=== PATIENT | male | born 1935 | race Two or more races ===

== ENCOUNTER 2020-02-24 14:24 | Inpatient (IN) | payer MEDICARE, MEDICAID ==
[~2020-02-24] VITALS: Ht 177.8 cm; Wt 74.5 kg
[2020-02-24] MEDS ORDERED: ASPI-889 PO (15:09)
[2020-02-24] MEDS ORDERED: SPIR25TA5 PO (15:09)
[2020-02-24] MEDS ORDERED: ATOR40TA59 PO (15:09)
[2020-02-24] MEDS ORDERED: MEMA10TA PO (15:09)
[2020-02-24] MEDS ORDERED: METO50TA6 PO (15:09)
[2020-02-24] MEDS ORDERED: GLIP5TAB10 PO (15:09)
[2020-02-24] MEDS ORDERED: LOSA100T14 PO (15:09)
[2020-02-24] MEDS ORDERED: ISOS30TA4 PO (15:09)
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
[2020-02-24] MEDS ORDERED: ACETAMINOPHEN 325 MG TABLET PO PRN (16:30)
[2020-02-24] MEDS ORDERED: MAG HYDROX/AL HYDROX/SIMETH 30 ML ORAL.SUSP PO PRN (16:30)
[2020-02-24 17:03] VITALS: BP 159/84
[2020-02-24] MEDS: MEMANTINE 10 MG TABLET. PO SCH (20:09)
[2020-02-24] MEDS: ATORVASTATIN CALCIUM 20 MG TABLET PO SCH (20:09)
[2020-02-24] MEDS: METOPROLOL TART IMMED RELEASE 50 MG TABLET PO SCH (20:09)
--- NOTE | 2020-02-24 22:14 | PDOC ---
Exam Note: Jamie Note: Please also refer to the separate dictated note~for this date of service dictated separately.~Patient seen individually. Discussed the patient with Nursing staff reviewed the chart.~Reviewed interim history and current functioning. Reviewed vital signs,~Labs/ Radiology~and current medications noted below. Continue current treatment with the changes noted in the dictated addendum note Assessment: Vital Signs/I&O: Vital Signs Date Time Temp Pulse Resp B/P (MAP) Pulse Ox O2 Delivery O2 Flow Rate FiO2 02/24/20 20:14 97.9 98 02/24/20 20:09 79 159/84 02/24/20 17:03 18 Room Air Current Medications: Meds: Current Medications Medications (Trade) Dose Ordered Sig/Neto Route PRN Reason Start Time Stop Time Status Last Admin Dose Admin Memantine (Namenda) 10 mg BID PO 02/24/20 21:00 02/24/20 20:09 Metoprolol Tartrate (Lopressor) 50 mg BID PO 02/24/20 21:00 02/24/20 20:09 Atorvastatin Calcium (Lipitor) 40 mg QHS PO 02/24/20 21:00 02/24/20 20:09 I have reviewed the current psychotropics carefully including drug interactions. Risk benefit ratio favors no change other than as noted in my dictated progress note. CLEMENTE BUTLER MD Feb 24, 2020 22:14
[2020-02-25] MEDS: traZODone 50 MG TABLET. PO PRN ×2 (00:57→20:05)
--- NOTE | 2020-02-25 03:44 | NUR ---
Patient is in the [facility] on assumption of care. He is disorganized, confused. Keeps repeating "When will they be here with the car to take me home?" This nurse explained to the patient that he is in the hospital multiple times, but patient does not retain that information. He is rambling on, talking to himself throughout the evening. He was compliant with assessments and medications given crushed in chocolate pudding. Bed made up in the quiet room, and this nurse and ARTIST RELATIONSHIP MANAGER repeatedly attempted to get the patient to change into a hospital gown and go to sleep, with no success. Trazadone 50mg given at 0100, with very little effect. Patient fell asleep in the chair for approximately 30 minutes. He is awake at present time, pacing in the hallway. No agitation. Does not appear to be experiencing any pain or discomfort. Will continue to monitor.
[2020-02-25 05:52] VITALS: BP 158/89
[2020-02-25] MEDS: METOPROLOL TART IMMED RELEASE 50 MG TABLET PO SCH ×2 (08:06→20:04)
[2020-02-25] MEDS: LOSARTAN 50 MG TABLET. PO SCH (08:06)
[2020-02-25] MEDS: MEMANTINE 10 MG TABLET. PO SCH ×2 (08:06→20:04)
[2020-02-25] MEDS: glipiZIDE 5 MG TABLET PO SCH (08:06)
[2020-02-25] MEDS: ISOSORBIDE MONONITRATE ER 30 MG TAB.ER.24H PO SCH (08:07)
[2020-02-25] MEDS: ASPIRIN ENTERIC COATED 81 MG TABLET.DR. PO SCH (08:07)
[2020-02-25] MEDS: SPIRONOLACTONE 25 MG TABLET PO SCH (08:08)
[2020-02-25 08:13] LABS: BASO % 0 % (0-3); EOS # 0.1 x10^3/uL (0.0-0.7); EOS % 1 % (0-3); HEMATOCRIT 48.5 % (39.0-53.0); HEMOGLOBIN 16.2 g/dL (13.0-17.5); LYMPH # 2.7 x10^3/uL (1.0-4.8); LYMPH % 45 % (24-48); MEAN CORPUSCULAR HEMOGLOBIN 32 pg (25-35); MEAN CORPUSCULAR HGB CONC 33 g/dL (31-37); MEAN CORPUSCULAR VOLUME 97 fL (79-100); MONO # 0.4 x10^3/uL (0.0-1.1); MONO % 7 % (0-9); NEUT # 2.8 x10^3uL (1.8-7.7); NEUT % 47 % (31-73); PLATELET COUNT 168 x10^3/uL (140-400); RED CELL DISTRIBUTION WIDTH 15.3 % (11.5-14.5)
[2020-02-25 08:28] LABS: ALBUMIN 4.2 g/dL (3.4-5.0); ALBUMIN/GLOBULIN RATIO 1.1 (1.0-1.7); CALCIUM 9.7 mg/dL (8.5-10.1); CREATININE 1.3 mg/dL (0.7-1.3); GFR 52.6; MAGNESIUM 2.1 mg/dL (1.8-2.4); POTASSIUM 4.2 mmol/L (3.5-5.1); TOTAL BILIRUBIN 1.4 mg/dL (0.2-1.0)
[2020-02-25 11:03] LABS: THYROID STIM HORMONE (TSH) 1.618 uIU/mL (0.358-3.740)
--- NOTE | 2020-02-25 11:07 | NUR ---
ACTIVITY THERAPY ASSESSMENT completed based on notes, observation, and interview. Pt was in secured hallway [facility]. Pt requested for some water which the AT got and then began to ask questions. Pt was disorganized, confused, and unable to engage. Pt was unable to recall leisure activities he enjoyed. AT then asked pt about his family. Pt spoke in circles until asked direct questions. AT asked what his name was to which he replied Sandra. AT asked if he had children to which he replied he had five. AT tried to use this that questions which pt responded in a disorganized manner. When asked what pt likes to do with his family he replied "be with them." Pt then began to talk [place]. Pt then said that they gave us a couple tires. Pt then began to speak about his children laughing. Then pt said the car had a problem. AT redirected conversation to ask how long he had been to which he replied with speaking about the car. AT asked pt if he came from home which he replied yes to then said he came from somewhere very loud. AT asked pt if his eyes and ears were good and he said yes. Pt then said "it's a good car" while pointing around the table in front of him. AT asked pt where this story took place and he replied with [place]. AT asked if that is where he came from and he said 'yes, all the way [place].' AT then asked when he came to [place] and all AT could make out was '17,000.' Initial goal is aimed to increase time management and socialization skills. Pt will participate in one individual Activity Therapy Session before discharge. Addendum: 02/25/20 at 1112 by LISA WHITE ACT Assessment time: 1015 Addendum: 03/06/20 at 1543 by MARILY WOLFE ACT Goal changed 03/05: Pt. will participate in at least three individual or group Activity Therapy sessions per week
[2020-02-25 15:40] VITALS: BP 138/65
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
[2020-02-25 18:07] LABS: THYROXINE 7.1 ug/dL (4.5-12.0)
--- NOTE | 2020-02-25 19:02 | PN ---
DATE: 02/25/2020 PSYCHIATRIC PROGRESS NOTE This note covers elements not covered in my initial note of 02/25/2020. SUBJECTIVE: The patient was seen on telehealth rounds with LISA Vargas in the evening. Discussed with nursing staff. The patient slept just half hour previous night. He remains quite agitated, more so in the morning, refused his UA, has appeared tired later in the evening. Poor appetite, confused, slept just half hour. REVIEW OF SYSTEMS: No CV, , pulmonary, eye, ENT system symptoms on review. Reliability poor. MENTAL STATUS EXAM: Oriented to himself. Insight, judgment, recent and remote memory, attention, concentration, fund of knowledge poor, consistent with his diagnosis. IMPRESSION: Major neurocognitive disorder, Alzheimer, vascular with delusion; depression, behavioral disturbance, anxiety disorder, unspecified; impulse control disorder, unspecified. PLAN: Continue current psychotropic. Start Remeron 7.5 mg at bedtime, Zoloft 25 mg a day for his mood and anxiety symptoms and trazodone p.r.n. Rest unchanged for now. Maintain Namenda 10 b.i.d. MAN Steph BUTLER MD DR: TAMIE/natacha JOB#: [id number] / [id number]
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
[2020-02-25 19:23] LABS: BILIRUBIN,URINE NEG (NEG); CLARITY,URINE CLEAR; COLOR,URINE AMBER; GLUCOSE,URINE NEG (NEG)
[2020-02-25 19:24] LABS: BACTERIA,URINE MOD /HPF (0-FEW); GRANULAR CASTS,URINE OCC /HPF; HYALINE CASTS, URINE MANY /HPF; NITRITE,URINE NEG (NEG); SQUAMOUS EPITHELIAL CELL,UR FEW /LPF
[2020-02-25] MEDS: ATORVASTATIN CALCIUM 20 MG TABLET PO SCH (20:04)
[2020-02-25] MEDS: MIRTAZAPINE 7.5 MG TABLET. PO SCH (20:05)
--- NOTE | 2020-02-25 21:58 | NUR ---
Pt located in the [facility] this evening d/t pt not keeping his mask on. Pt A/O self, word salad. He has been pacing the hallway, undressing and hallucinating (auditory and visual.) Pt has called out for Gual[facility]to numerous times. Compliant with HS medications crushed in one bite of pudding. Pt fell asleep in chair in hallway and was very resistive with staff taking him to bed. Agitated and attempted to swing when staff checked his brief.
--- NOTE | 2020-02-25 22:27 | PDOC ---
Exam Note: Jamie Note: Please also refer to the separate dictated note~for this date of service dictated separately.~Patient seen individually. Discussed the patient with Nursing staff reviewed the chart.~Reviewed interim history and current functioning. Reviewed vital signs,~Labs/ Radiology~and current medications noted below. Continue current treatment with the changes noted in the dictated addendum note Assessment: Vital Signs/I&O: Vital Signs Date Time Temp Pulse Resp B/P (MAP) Pulse Ox O2 Delivery O2 Flow Rate FiO2 02/25/20 20:04 69 138/65 02/25/20 19:59 98.8 92 02/25/20 15:40 16 Room Air I & O 02/24/20 02/24/20 02/25/20 15:00 23:00 07:00 Intake Total 240 ml Balance 240 ml Labs: Laboratory Tests Test 02/25/20 07:26 02/25/20 07:55 02/25/20 18:30 02/25/20 19:50 Glucose (Fingerstick) 107 mg/dL (70-99) H 143 mg/dL (70-99) H White Blood Count 6.0 x10^3/uL (4.0-11.0) Red Blood Count 5.00 x10^6/uL (4.30-5.70) Hemoglobin 16.2 g/dL (13.0-17.5) Hematocrit 48.5 % (39.0-53.0) Mean Corpuscular Volume 97 fL (79-100) Mean Corpuscular Hemoglobin 32 pg (25-35) Mean Corpuscular Hemoglobin Concent 33 g/dL (31-37) Red Cell Distribution Width 15.3 % (11.5-14.5) H Platelet Count 168 x10^3/uL (140-400) Neutrophils (%) (Auto) 47 % (31-73) Lymphocytes (%) (Auto) 45 % (24-48) Monocytes (%) (Auto) 7 % (0-9) Eosinophils (%) (Auto) 1 % (0-3) Basophils (%) (Auto) 0 % (0-3) Neutrophils # (Auto) 2.8 x10^3uL (1.8-7.7) Lymphocytes # (Auto) 2.7 x10^3/uL (1.0-4.8) Monocytes # (Auto) 0.4 x10^3/uL (0.0-1.1) Eosinophils # (Auto) 0.1 x10^3/uL (0.0-0.7) Basophils # (Auto) 0.0 x10^3/uL (0.0-0.2) Sodium Level 139 mmol/L (136-145) Potassium Level 4.2 mmol/L (3.5-5.1) Chloride Level 102 mmol/L (98-107) Carbon Dioxide Level 27 mmol/L (21-32) Anion Gap 10 (6-14) Blood Urea Nitrogen 21 mg/dL (8-26) Creatinine 1.3 mg/dL (0.7-1.3) Estimated GFR (Cockcroft-Gault) 52.6 BUN/Creatinine Ratio 16 (6-20) Glucose Level 128 mg/dL (70-99) H Calcium Level 9.7 mg/dL (8.5-10.1) Magnesium Level 2.1 mg/dL (1.8-2.4) Iron Level 122 ug/dL (65-175) Total Iron Binding Capacity 355 ug/dL (250-450) Iron Saturation 34 % (15-34) Total Bilirubin 1.4 mg/dL (0.2-1.0) H Aspartate Amino Transferase (AST) 41 U/L (15-37) H Alanine Aminotransferase (ALT) 38 U/L (16-63) Alkaline Phosphatase 93 U/L (46-116) Total Protein 8.0 g/dL (6.4-8.2) Albumin 4.2 g/dL (3.4-5.0) Albumin/Globulin Ratio 1.1 (1.0-1.7) Triglycerides Level 95 mg/dL (0-150) Cholesterol Level 178 mg/dL (0-200) LDL Cholesterol, Calculated 85 mg/dL (0-100) VLDL Cholesterol, Calculated 19 mg/dL (0-40) Non-HDL Cholesterol Calculated 104 mg/dL (0-129) HDL Cholesterol 74 mg/dL (40-60) H Cholesterol/HDL Ratio 2.0 Thyroid Stimulating Hormone (TSH) 1.618 uIU/mL (0.358-3.740) Thyroxine (T4) 7.1 ug/dL (4.5-12.0) Total Triiodothyronine (TT3) 92 ng/dL (71-180) Urine Collection Type Unknown Urine Color Majo Urine Clarity Clear Urine pH 6.5 Urine Specific [place] 1.020 Urine Protein 100 mg/dl (NEG-TRACE) Urine Glucose (UA) Neg mg/dL (NEG) Urine Ketones (Stick) Neg mg/dL (NEG) Urine Blood Neg (NEG) Urine Nitrite Neg (NEG) Urine Bilirubin Neg (NEG) Urine Urobilinogen Dipstick 2.0 mg/dL (0.2 mg/dL) Urine Leukocyte Esterase Neg (NEG) Urine RBC 1-2 /HPF (0-2) Urine WBC 1-4 /HPF (0-4) Urine Squamous Epithelial Cells Few /LPF Urine Bacteria Mod /HPF (0-FEW) Urine Hyaline Casts Many /HPF Urine Granular Casts Occ /HPF Urine Mucus Slight /LPF Current Medications: Meds: Current Medications Medications (Trade) Dose Ordered Sig/Neto Route PRN Reason Start Time Stop Time Status Last Admin Dose Admin Aspirin (Aspirin Enteric Coated) 81 mg DAILY PO 02/25/20 09:00 02/25/20 08:07 Glipizide (Glucotrol) 2.5 mg DAILY PO 02/25/20 09:00 02/25/20 08:06 Isosorbide Mononitrate (Imdur) 30 mg DAILY PO 02/25/20 09:00 02/25/20 08:07 Spironolactone (Aldactone) 12.5 mg DAILY PO 02/25/20 09:00 02/25/20 08:08 Losartan Potassium (Cozaar) 100 mg DAILY PO 02/25/20 09:00 02/25/20 08:06 Mirtazapine (Remeron) 7.5 mg QHS PO 02/25/20 21:00 02/25/20 20:05 I have reviewed the current psychotropics carefully including drug interactions. Risk benefit ratio favors no change other than as noted in my dictated progress note. Diagnosis: Problems: (1) Major neurocognitive disorder (2) Dementia in Alzheimer's disease with delusions (3) Dementia in Alzheimer's disease with depression (4) Dementia of the Alzheimer's type with early onset with behavioral disturbance (5) Dementia, vascular, with delusions (6) Dementia, vascular, with depression (7) Anxiety disorder, unspecified (8) Impulse control disorder, unspecified CLEMENTE BUTLER MD Feb 25, 2020:27
[2020-02-26 05:30] VITALS: BP 150/70
[2020-02-26 05:38] LABS: HEMOGLOBIN A1C 6.6 % (4.8-5.6)
[2020-02-26] MEDS: SPIRONOLACTONE 25 MG TABLET PO SCH (07:43)
[2020-02-26] MEDS: ASPIRIN ENTERIC COATED 81 MG TABLET.DR. PO SCH (07:45)
[2020-02-26] MEDS: ISOSORBIDE MONONITRATE ER 30 MG TAB.ER.24H PO SCH (07:45)
[2020-02-26] MEDS: LOSARTAN 50 MG TABLET. PO SCH (07:45)
[2020-02-26] MEDS: glipiZIDE 5 MG TABLET PO SCH (07:45)
[2020-02-26] MEDS: METOPROLOL TART IMMED RELEASE 50 MG TABLET PO SCH ×2 (07:46→21:13)
[2020-02-26] MEDS: MEMANTINE 10 MG TABLET. PO SCH ×2 (07:46→21:13)
[2020-02-26] MEDS: SERTRALINE 25 MG TABLET. PO SCH (07:47)
--- NOTE | 2020-02-26 10:47 | NUR ---
Pt restless and wandering in room. Zydis given with am meds. Pt down for CT. Tolerated well.
--- NOTE | 2020-02-26 10:49 | RAD ---
PQRS Compliance Statement: One or more of the following individualized dose reduction techniques were utilized for this examination: 1. Automated exposure control 2. Adjustment of the mA and/or kV according to patient size 3. Use of iterative reconstruction technique CT HEAD WITHOUT CONTRAST History: Reason: MS change / Comparison: None. Technique: Axial images are obtained of the head from the skull base through the vertex without IV contrast. Findings: There is a 9 mm linear metallic foreign body of the medial superior left orbit. Medial deviation of the right lamina papyracea may be congenital or due to old fracture. No mass-effect, midline shift, extra-axial fluid collection, hemorrhage, or obvious acute infarction is identified. Basilar cisterns are patent. The ventricles and sulci are prominent, consistent with age-related cerebral atrophy. There is supratentorial white matter hypoattenuation. This is a nonspecific finding but is commonly due to chronic small vessel ischemic disease. Bone windows demonstrate no acute calvarial abnormality. The visualized paranasal sinuses are clear. Mastoid air cells are well aerated. IMPRESSION: 1. No acute intracranial abnormality. 2. Generalized cerebral atrophy and supratentorial white matter changes probably due to chronic small vessel ischemic disease. 3. Metallic foreign body of the left orbit. Electronically signed by: Denis Jorge MD (02/26/2020 10:46 AM) [id number]
[2020-02-26 15:51] VITALS: BP 111/62
--- NOTE | 2020-02-26 16:23 | NUR ---
Pt has been mostly redirectable in room. Disrobed and came into hallway x1. Has been exit seeking at times. Has been compliant with meds and redirectable.
[2020-02-26] MEDS: MIRTAZAPINE 7.5 MG TABLET. PO SCH (21:12)
[2020-02-26] MEDS: ATORVASTATIN CALCIUM 20 MG TABLET PO SCH (21:13)
[2020-02-26] MEDS: traZODone 50 MG TABLET. PO PRN (21:13)
--- NOTE | 2020-02-26 21:57 | PDOC ---
Exam Note: Jamie Note: Please also refer to the separate dictated note~for this date of service dictated separately.~Patient seen individually. Discussed the patient with Nursing staff reviewed the chart.~Reviewed interim history and current functioning. Reviewed vital signs,~Labs/ Radiology~and current medications noted below. Continue current treatment with the changes noted in the dictated addendum note Assessment: Vital Signs/I&O: Vital Signs Date Time Temp Pulse Resp B/P (MAP) Pulse Ox O2 Delivery O2 Flow Rate FiO2 02/26/20 21:13 72 111/62 02/26/20 15:51 97.5 18 96 Room Air I & O 02/25/20 02/25/20 02/26/20 15:00 23:00 07:00 Intake Total 540 ml 60 ml Balance 540 ml 60 ml Labs: Laboratory Tests Test 02/26/20 07:37 02/26/20 19:34 Glucose (Fingerstick) 97 mg/dL (70-99) 233 mg/dL (70-99) H Current Medications: Meds: Current Medications Medications (Trade) Dose Ordered Sig/Neto Route PRN Reason Start Time Stop Time Status Last Admin Dose Admin Sertraline HCl (Zoloft) 25 mg DAILY PO 02/26/20 09:00 02/29/20 08:00 02/26/20 07:47 I have reviewed the current psychotropics carefully including drug interactions. Risk benefit ratio favors no change other than as noted in my dictated progress note. Diagnosis: Problems: (1) Impulse control disorder, unspecified (2) Anxiety disorder, unspecified (3) Dementia, vascular, with depression (4) Dementia, vascular, with delusions (5) Dementia in Alzheimer's disease with depression (6) Dementia in Alzheimer's disease with delusions (7) Dementia of the Alzheimer's type with early onset with behavioral disturbance (8) Major neurocognitive disorder CLEMENTE BUTLER MD Feb 26, 2020 21:57
--- NOTE | 2020-02-26 22:54 | NUR ---
Nursing Note The patient was located in his room and throughout the hallways this shift. The patient was very restless and was resistive at times r/t wearing his mask when out of his room. The patient was given PRN Trazodone per PRN order with his HS medication. The patient was compliant with his medication and took them crushed in pudding. The patient was compliant with his assessment. The patient is currently awake in his room.
[2020-02-27 06:38] VITALS: BP 137/80
[2020-02-27] MEDS: ASPIRIN ENTERIC COATED 81 MG TABLET.DR. PO SCH (09:00)
[2020-02-27] MEDS: SPIRONOLACTONE 25 MG TABLET PO SCH (09:00)
[2020-02-27] MEDS: LOSARTAN 50 MG TABLET. PO SCH (09:02)
[2020-02-27] MEDS: glipiZIDE 5 MG TABLET PO SCH (09:02)
[2020-02-27] MEDS: ISOSORBIDE MONONITRATE ER 30 MG TAB.ER.24H PO SCH (09:02)
[2020-02-27] MEDS: SERTRALINE 25 MG TABLET. PO SCH (09:03)
[2020-02-27] MEDS: MEMANTINE 10 MG TABLET. PO SCH ×2 (09:03→21:06)
[2020-02-27] MEDS: METOPROLOL TART IMMED RELEASE 50 MG TABLET PO SCH ×2 (09:03→21:06)
--- NOTE | 2020-02-27 11:27 | NUR ---
Pt is disorganized, confused, but cooperative. No agitation or aggression. Pt does talk to himself and what appears to be someone in his room. He is compliant with his medication and assessment.
--- NOTE | 2020-02-27 14:12 | NUR ---
SW attempted to contact Valorie, who is noted as the primary DPOA, and was not able to leave a message. SW received a recording stating that the number you have reached has either been disconnected or in an area that cannot be reached". SW attempted the number a couple more times receiving the same message. DARYA will try again and attempt to contact his secondary DPOA, Mary.
[2020-02-27 15:44] VITALS: BP 122/66
--- NOTE | 2020-02-27 16:40 | NUR ---
1:1 observation d/c'd as pt is stable on his feet and able to follow commands and directions. Pt has been evaluated by PT.
--- NOTE | 2020-02-27 19:13 | PN ---
DATE: 02/26/2020 This late entry 02/26/2020 covers elements not covered in my initial note. SUBJECTIVE: I met with the patient the evening of 02/26/2020. This was telehealth rounds with LISA Vargas. The patient slept 6-3/4 hours previous night, received trazodone and Remeron to help him sleep. Per nursing report, he has been having some questionable auditory and visual hallucinations, confused, disrobing in the hallway. CT head completed some vascular changes and atrophy are noted. UA has reflex to culture. REVIEW OF SYSTEMS: No CV, , pulmonary, eye, ENT system symptoms on review. Reliability poor. MENTAL STATUS EXAM: Oriented to himself. Insight, judgment, recent and remote memory, attention, concentration, fund of knowledge poor, consistent with his diagnosis mentioned in my initial note. PLAN: No change from initial note. Increase Zoloft to 50 mg a day after he has been on 25 mg for 3 days. Continue trazodone p.r.n., Namenda 10 b.i.d., Remeron 7.5 mg at bedtime. Await UA, C and S, treat if indicated. CLEMENTE BUTLER MD DR: TAMIE/natacha JOB#: [id number] / [id number]
[2020-02-27] MEDS: ATORVASTATIN CALCIUM 20 MG TABLET PO SCH (21:06)
[2020-02-27] MEDS: MIRTAZAPINE 7.5 MG TABLET. PO SCH (21:06)
--- NOTE | 2020-02-27 22:09 | PDOC ---
Exam Note: Jamie Note: Please also refer to the separate dictated note~for this date of service dictated separately.~Patient seen individually. Discussed the patient with Nursing staff reviewed the chart.~Reviewed interim history and current functioning. Reviewed vital signs,~Labs/ Radiology~and current medications noted below. Continue current treatment with the changes noted in the dictated addendum note Assessment: Vital Signs/I&O: Vital Signs Date Time Temp Pulse Resp B/P (MAP) Pulse Ox O2 Delivery O2 Flow Rate FiO2 02/27/20 21:06 60 122/66 02/27/20 20:08 97.6 100 02/27/20 15:44 16 02/26/20 15:51 Room Air I & O 02/26/20 02/26/20 02/27/20 15:00 23:00 07:00 Intake Total 480 ml 360 ml Balance 480 ml 360 ml Labs: Laboratory Tests Test 02/27/20 07:53 Glucose (Fingerstick) 84 mg/dL (70-99) Current Medications: I have reviewed the current psychotropics carefully including drug interactions. Risk benefit ratio favors no change other than as noted in my dictated progress note. Diagnosis: Problems: (1) Impulse control disorder, unspecified (2) Anxiety disorder, unspecified (3) Dementia, vascular, with depression (4) Dementia, vascular, with delusions (5) Dementia in Alzheimer's disease with depression (6) Dementia in Alzheimer's disease with delusions (7) Dementia of the Alzheimer's type with early onset with behavioral disturbance (8) Major neurocognitive disorder CLEMENTE BUTLER MD Feb 27, 2020 22:09
--- NOTE | 2020-02-28 01:43 | NUR ---
Nursing Note The patient was located near the [facility] station sitting with another patient when approached for his medication and assessment. The patient was calm and compliant albeit confused and unable to track during conversations. The patient took his medication crushed in chocolate pudding. The patient is currently awake laying in bed.
[2020-02-28 06:21] VITALS: BP 143/74
[2020-02-28] MEDS: ASPIRIN ENTERIC COATED 81 MG TABLET.DR. PO SCH (08:51)
[2020-02-28] MEDS: ISOSORBIDE MONONITRATE ER 30 MG TAB.ER.24H PO SCH (08:51)
[2020-02-28] MEDS: METOPROLOL TART IMMED RELEASE 50 MG TABLET PO SCH ×2 (08:51→21:20)
[2020-02-28] MEDS: SERTRALINE 25 MG TABLET. PO SCH (08:51)
[2020-02-28] MEDS: LOSARTAN 50 MG TABLET. PO SCH (08:52)
[2020-02-28] MEDS: MEMANTINE 10 MG TABLET. PO SCH ×2 (08:52→21:20)
[2020-02-28] MEDS: SPIRONOLACTONE 25 MG TABLET PO SCH (08:52)
[2020-02-28] MEDS: glipiZIDE 5 MG TABLET PO SCH (08:52)
--- NOTE | 2020-02-28 11:14 | NUR ---
Nursing note: Pt in his room and appears to be talking to someone when approached for morning meds and assessment. Pt was pleasant, compliant with meds crushed in pudding, and cooperative with assessment. Pt was unable to answer orientation questions, rambling on about something completely off topic and speaking in word salad. He has come out of his room once this shift forgetting to wear his mask. When reminded that he needed to be wearing it, he rushed back into his room and was getting upset because he thought he lost it. This nurse showed him that it was still sitting on his bed, he quickly showed signs of relief and put the mask on. He is currently sitting in his room. Will continue to monitor.
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
[2020-02-28 15:13] VITALS: BP 138/73
[2020-02-28] MEDS: MIRTAZAPINE 7.5 MG TABLET. PO SCH (21:20)
[2020-02-28] MEDS: ATORVASTATIN CALCIUM 20 MG TABLET PO SCH (21:20)
--- NOTE | 2020-02-28 21:53 | PDOC ---
Exam Note: Jamie Note: Please also refer to the separate dictated note~for this date of service dictated separately.~Patient seen individually. Discussed the patient with Nursing staff reviewed the chart.~Reviewed interim history and current functioning. Reviewed vital signs,~Labs/ Radiology~and current medications noted below. Continue current treatment with the changes noted in the dictated addendum note Assessment: Vital Signs/I&O: Vital Signs Date Time Temp Pulse Resp B/P (MAP) Pulse Ox O2 Delivery O2 Flow Rate FiO2 02/28/20 21:20 83 138/73 02/28/20 15:13 97.7 16 100 02/26/20 15:51 Room Air I & O 02/27/20 02/27/20 02/28/20 15:00 23:00 07:00 Intake Total 600 ml 320 ml Balance 600 ml 320 ml Labs: Laboratory Tests Test 02/28/20 07:24 Glucose (Fingerstick) 91 mg/dL (70-99) Current Medications: I have reviewed the current psychotropics carefully including drug interactions. Risk benefit ratio favors no change other than as noted in my dictated progress note. Diagnosis: Problems: (1) Major neurocognitive disorder, due to vascular disease, with behavioral disturbance, mild (2) Impulse control disorder, unspecified (3) Anxiety disorder, unspecified (4) Dementia, vascular, with depression (5) Dementia, vascular, with delusions (6) Dementia in Alzheimer's disease with depression (7) Dementia in Alzheimer's disease with delusions (8) Dementia of the Alzheimer's type with early onset with behavioral disturbance CLEMENTE BUTLER MD Feb 28, 2020 21:53
--- NOTE | 2020-02-28 23:22 | NUR ---
Nursing Note The patient was located in his room and throughout the hallways near his room this shift. The patient intermittently entered the room next his and required staff to escort him out. The patient is severely disorganized during all interactions. The patient took his medication crushed in pudding. The patient is currently laying in bed awake.
[2020-02-29 06:28] VITALS: BP 136/68
[2020-02-29] MEDS: ISOSORBIDE MONONITRATE ER 30 MG TAB.ER.24H PO SCH (08:40)
[2020-02-29] MEDS: MEMANTINE 10 MG TABLET. PO SCH ×2 (08:40→20:07)
[2020-02-29] MEDS: SERTRALINE 50 MG TABLET. PO SCH (08:40)
[2020-02-29] MEDS: METOPROLOL TART IMMED RELEASE 50 MG TABLET PO SCH ×2 (08:41→21:00)
[2020-02-29] MEDS: SPIRONOLACTONE 25 MG TABLET PO SCH (08:42)
[2020-02-29] MEDS: LOSARTAN 50 MG TABLET. PO SCH (08:42)
[2020-02-29] MEDS: ASPIRIN ENTERIC COATED 81 MG TABLET.DR. PO SCH (08:42)
[2020-02-29] MEDS: glipiZIDE 5 MG TABLET PO SCH (08:42)
--- NOTE | 2020-02-29 12:55 | PN ---
DATE: 02/28/2020 PSYCHIATRIC PROGRESS NOTE This late entry 02/27 covers elements not covered in my initial note. SUBJECTIVE: I met with the patient evening of 02/27 on telehealth rounds. Discussed with LISA Izaguirre. The patient slept 5-1/4 hours previous night. He has had a good day, remains disorganized, removes his mask in the hallway, unable to remember to use his walker. REVIEW OF SYSTEMS: No CV, , pulmonary, eye system symptoms on review. Reliability poor. MENTAL STATUS EXAM: Oriented to himself. Insight, judgment, recent and remote memory, attention, concentration, fund of knowledge poor, consistent with his diagnosis. As I met with him on telehealth rounds, he was having dinner, but as I questioned him, he was unable to identify what food items he was eating. IMPRESSION: Major neurocognitive disorder, Alzheimer, vascular with delusion, depression, behavioral disturbance. Rest unchanged. PLAN: Continue psychotropics from initial note including Namenda, trazodone, Zyprexa p.r.n., Remeron, Zoloft, which is being gradually increased. CLEMENTE BUTLER MD DR: TAMIE/natacha JOB#: [id number] / [id number]
--- NOTE | 2020-02-29 13:34 | NUR ---
Nursing note: Pt in his room for morning meds and assessment. He was social, compliant with meds crushed in pudding, and cooperative with his assessment. Pt continues to be very disorganized. He has occasionally come out of his room to walk around the unit while remembering to wear his mask, just needs reminders to pull it up over his nose as it falls down when he speaks. Pt has a peer who he enjoys speaking with and frequently speaks with him from the doorway of his room. He is currently sitting in his room. Will continue to monitor.
[2020-02-29 15:19] VITALS: BP 86/57
[2020-02-29] MEDS: ATORVASTATIN CALCIUM 20 MG TABLET PO SCH (20:07)
[2020-02-29] MEDS: MIRTAZAPINE 7.5 MG TABLET. PO SCH (20:07)
[2020-02-29 20:25] VITALS: BP 146/69
--- NOTE | 2020-02-29 21:59 | PDOC ---
Exam Note: Jamie Note: Please also refer to the separate dictated note~for this date of service dictated separately.~Patient seen individually. Discussed the patient with Nursing staff reviewed the chart.~Reviewed interim history and current functioning. Reviewed vital signs,~Labs/ Radiology~and current medications noted below. Continue current treatment with the changes noted in the dictated addendum note Assessment: Vital Signs/I&O: Vital Signs Date Time Temp Pulse Resp B/P (MAP) Pulse Ox O2 Delivery O2 Flow Rate FiO2 02/29/20 21:02 98.1 97 02/29/20 20:25 65 146/69 (94) 02/29/20 15:19 16 02/29/20 06:28 Room Air I & O 02/28/20 02/28/20 02/29/20 15:00 23:00 07:00 Intake Total 720 ml 360 ml Balance 720 ml 360 ml Current Medications: Meds: Current Medications Medications (Trade) Dose Ordered Sig/Neto Route PRN Reason Start Time Stop Time Status Last Admin Dose Admin Sertraline HCl (Zoloft) 50 mg DAILY PO 02/29/20 09:00 02/29/20 08:40 I have reviewed the current psychotropics carefully including drug interactions. Risk benefit ratio favors no change other than as noted in my dictated progress note. Diagnosis: Problems: (1) Impulse control disorder, unspecified (2) Anxiety disorder, unspecified (3) Dementia, vascular, with depression (4) Dementia, vascular, with delusions (5) Dementia in Alzheimer's disease with depression (6) Dementia in Alzheimer's disease with delusions (7) Dementia of the Alzheimer's type with early onset with behavioral disturbance (8) Major neurocognitive disorder, due to vascular disease, with behavioral disturbance, mild CLEMENTE BUTLER MD Feb 29, 2020 21:59
--- NOTE | 2020-02-29 22:32 | PN ---
DATE: 02/27/2020 PSYCHIATRIC PROGRESS NOTE This late entry 02/27/2020 covers elements not covered in my initial note. SUBJECTIVE: I met with the patient evening of 02/27/2020 and staffed at a treatment team meeting earlier in the day on 02/27/2020 with Aye Martinez, laboratory coordinator, LISA Celaya. The patient slept 5 hours previous night. He remains confused. Nursing staff report he is having auditory hallucinations, talking to himself, sitting in his room. He has had no inappropriate urination in the hallway. REVIEW OF SYSTEMS: No CV, , pulmonary, eye, ENT system symptoms on review. Reliability poor. MENTAL STATUS EXAM: Oriented to himself. Insight, judgment, recent and remote memory, attention, concentration, fund of knowledge poor, consistent with his diagnosis mentioned in my initial note. PLAN: No change from initial note. MAN Steph BUTLER MD DR: TAMIE/natacha JOB#: [id number] / [id number]
--- NOTE | 2020-03-01 00:35 | NUR ---
Location of Patient during Assessment: Patient room Behaviors Mood and Affect this shift: Friendly outgoing demeanor, has made friends with a peer and social with staff. Medication Compliant: Meds taken whole with some prompting Assessment Compliant: Cooperative with assessment. Response After Interventions: Visited with staff, talked about air planes and repairing them as well as other rambling conversations. Only able to state name and partial , not sure of anything else.
[2020-03-01 05:39] VITALS: BP 135/73
[2020-03-01] MEDS: METOPROLOL TART IMMED RELEASE 50 MG TABLET PO SCH ×2 (09:41→20:30)
[2020-03-01] MEDS: ASPIRIN ENTERIC COATED 81 MG TABLET.DR. PO SCH (09:41)
[2020-03-01] MEDS: SPIRONOLACTONE 25 MG TABLET PO SCH (09:42)
[2020-03-01] MEDS: SERTRALINE 50 MG TABLET. PO SCH (09:42)
[2020-03-01] MEDS: glipiZIDE 5 MG TABLET PO SCH (09:42)
[2020-03-01] MEDS: ISOSORBIDE MONONITRATE ER 30 MG TAB.ER.24H PO SCH (09:42)
[2020-03-01] MEDS: LOSARTAN 50 MG TABLET. PO SCH (09:43)
[2020-03-01] MEDS: MEMANTINE 10 MG TABLET. PO SCH ×2 (09:43→20:30)
--- NOTE | 2020-03-01 11:54 | NUR ---
Nursing note: Pt in hallway socializing with peer and cooperative when asked to go to his room to be given his meds and to do assessment. He was compliant with meds crushed in pudding and cooperative with his assessment. Pt was unable to answer any orientation questions. He is currently in his room sleeping. Will continue to monitor.
[2020-03-01 15:33] VITALS: BP 122/70
[2020-03-01] MEDS: MIRTAZAPINE 7.5 MG TABLET. PO SCH (20:30)
[2020-03-01] MEDS: ATORVASTATIN CALCIUM 20 MG TABLET PO SCH (20:31)
--- NOTE | 2020-03-01 21:52 | NUR ---
his evening pt has been pleasant and cooperative he is very confused and unable to state name and . His conversation is rambling and tangential. Meds were taken whole and he has had no behaviors tonight.
--- NOTE | 2020-03-01 22:02 | PDOC ---
Exam Note: Jamie Note: Please also refer to the separate dictated note~for this date of service dictated separately.~Patient seen individually. Discussed the patient with Nursing staff reviewed the chart.~Reviewed interim history and current functioning. Reviewed vital signs,~Labs/ Radiology~and current medications noted below. Continue current treatment with the changes noted in the dictated addendum note Assessment: Vital Signs/I&O: Vital Signs Date Time Temp Pulse Resp B/P (MAP) Pulse Ox O2 Delivery O2 Flow Rate FiO2 03/01/20 20:33 97.6 74 99 03/01/20 20:30 122/70 03/01/20 15:33 18 02/29/20 06:28 Room Air I & O 02/29/20 02/29/20 03/01/20 15:00 23:00 07:00 Intake Total 720 ml 480 ml Balance 720 ml 480 ml Labs: Laboratory Tests Test 03/01/20 07:31 03/01/20 19:19 Glucose (Fingerstick) 107 mg/dL (70-99) H 158 mg/dL (70-99) H Current Medications: I have reviewed the current psychotropics carefully including drug interactions. Risk benefit ratio favors no change other than as noted in my dictated progress note. Diagnosis: Problems: (1) Impulse control disorder, unspecified (2) Anxiety disorder, unspecified (3) Dementia, vascular, with depression (4) Dementia, vascular, with delusions (5) Dementia in Alzheimer's disease with depression (6) Dementia in Alzheimer's disease with delusions (7) Dementia of the Alzheimer's type with early onset with behavioral disturbance (8) Major neurocognitive disorder, due to vascular disease, with behavioral disturbance, mild CLEMENTE BUTLER MD Mar 01, 2020 22:02
--- NOTE | 2020-03-02 05:52 | NUR ---
Coivd test to lab, nares swabbed pt tolerated well.
[2020-03-02 07:00] VITALS: BP 144/83
[2020-03-02] MEDS: ASPIRIN ENTERIC COATED 81 MG TABLET.DR. PO SCH (08:50)
[2020-03-02] MEDS: METOPROLOL TART IMMED RELEASE 50 MG TABLET PO SCH ×2 (08:50→20:39)
[2020-03-02] MEDS: MEMANTINE 10 MG TABLET. PO SCH ×2 (08:50→20:40)
[2020-03-02] MEDS: ISOSORBIDE MONONITRATE ER 30 MG TAB.ER.24H PO SCH (08:50)
[2020-03-02] MEDS: glipiZIDE 5 MG TABLET PO SCH (08:50)
[2020-03-02] MEDS: SPIRONOLACTONE 25 MG TABLET PO SCH (08:51)
[2020-03-02] MEDS: SERTRALINE 50 MG TABLET. PO SCH (08:51)
[2020-03-02] MEDS: LOSARTAN 50 MG TABLET. PO SCH (08:51)
--- NOTE | 2020-03-02 15:16 | NUR ---
Nursing note: Pt in his room for morning meds and assessment. He was compliant with taking his meds crushed in pudding stating "Mmmm...that's really good." Pt continues to be very disorganized, rambling about random topics. Early in the afternoon, pt was observed to be laying in another pt's bed. Pt laughed when explained to him that he was in the wrong room. He was escorted back to his own room where he is now sitting quietly. Will continue to monitor.
[2020-03-02 16:14] VITALS: BP 121/65
[2020-03-02] MEDS: ATORVASTATIN CALCIUM 20 MG TABLET PO SCH (20:40)
[2020-03-02] MEDS: MIRTAZAPINE 7.5 MG TABLET. PO SCH (20:40)
--- NOTE | 2020-03-02 22:00 | NUR ---
Patient is located outside the [facility] on assumption of care. He is pleasant, disorganized. Socializing with peers. He is compliant with assessments and medications taken crushed and mixed with chocolate pudding. Needs reminders to wear his mask properly when out of his room. No agitation. Denies any pain or discomfort. Denies SI/HI. Patient appears to be sleeping comfortably at present time.
--- NOTE | 2020-03-02 22:12 | PN ---
DATE: 03/01/2020 PSYCHIATRIC PROGRESS NOTE This late entry 03/01/2020 covers elements not covered in my initial note. SUBJECTIVE: I met with the patient evening of 03/01/2020. Overall, the patient remains confused, not aggressive, more redirectable. REVIEW OF SYSTEMS: No CV, , pulmonary, eye, ENT system symptoms on review. Reliability poor. MENTAL STATUS EXAM: Oriented to himself. Insight, judgment, recent and remote memory, attention, concentration, fund of knowledge poor, consistent with his diagnosis mentioned in my initial note. PLAN: No change from initial note. MAN ElmerArnol BUTLER MD DR: TAMIE/natacha JOB#: [id number] / [id number]
--- NOTE | 2020-03-02 22:15 | PN ---
DATE: 03/02/2020 PSYCHIATRIC PROGRESS NOTE This late entry 03/02/2020 covers elements not covered in my initial note. SUBJECTIVE: I met with the patient evening of 03/02/2020 on telehealth rounds. Per nursing report by LISA Izaguirre, the patient slept 6-1/2 hours previous night. He remains confused, but not agitated. REVIEW OF SYSTEMS: No CV, , pulmonary, eye, ENT system symptoms on review. Reliability poor. Gait unsteady with walker. MENTAL STATUS EXAM: Oriented to himself. Insight, judgment, recent and remote memory, attention, concentration, fund of knowledge poor, consistent with his diagnosis mentioned in my initial note. PLAN: No change from initial note. MAN Steph BUTLER MD DR: TAMIE/natacha JOB#: [id number] / [id number]
--- NOTE | 2020-03-02 22:15 | PDOC ---
Exam Note: Jamie Note: Please also refer to the separate dictated note~for this date of service dictated separately.~Patient seen individually. Discussed the patient with Nursing staff reviewed the chart.~Reviewed interim history and current functioning. Reviewed vital signs,~Labs/ Radiology~and current medications noted below. Continue current treatment with the changes noted in the dictated addendum note Assessment: Vital Signs/I&O: Vital Signs Date Time Temp Pulse Resp B/P (MAP) Pulse Ox O2 Delivery O2 Flow Rate FiO2 03/02/20 20:53 98.0 98 03/02/20 20:39 60 121/65 03/02/20 16:14 20 02/29/20 06:28 Room Air I & O 03/01/20 03/01/20 03/02/20 15:00 23:00 07:00 Intake Total 360 ml 360 ml Balance 360 ml 360 ml Labs: Laboratory Tests Test 03/02/20 07:32 03/02/20 11:06 03/02/20 19:38 Glucose (Fingerstick) 92 mg/dL (70-99) 107 mg/dL (70-99) H 193 mg/dL (70-99) H Current Medications: I have reviewed the current psychotropics carefully including drug interactions. Risk benefit ratio favors no change other than as noted in my dictated progress note. 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
--- NOTE | 2020-03-02 22:29 | PN ---
DATE: 02/29/2020 PSYCHIATRIC PROGRESS NOTE This late entry 02/29/2020 covers elements not covered in my initial note. SUBJECTIVE: I met with the patient evening of 02/29/2020. Discussed with nursing staff. Overall, the patient remains confused, not agitated or aggressive. Memory is impaired. REVIEW OF SYSTEMS: No CV, , pulmonary, eye system symptoms on review. Reliability poor. Gait unsteady with walker. MENTAL STATUS EXAM: Oriented to himself. Insight, judgment, recent and remote memory, attention, concentration, fund of knowledge poor, consistent with his diagnosis mentioned in my initial note. PLAN: No change from initial note. MAN Steph BUTLER MD DR: TAMIE/natacha JOB#: [id number] / [id number]
[2020-03-03 05:54] VITALS: BP 147/82
[2020-03-03 06:47] LABS: BASO % 1 % (0-3); EOS # 0.1 x10^3/uL (0.0-0.7); EOS % 2 % (0-3); HEMATOCRIT 40.8 % (39.0-53.0); HEMOGLOBIN 13.6 g/dL (13.0-17.5); LYMPH # 1.1 x10^3/uL (1.0-4.8); LYMPH % 28 % (24-48); MEAN CORPUSCULAR HEMOGLOBIN 32 pg (25-35); MEAN CORPUSCULAR HGB CONC 33 g/dL (31-37); MEAN CORPUSCULAR VOLUME 97 fL (79-100); MONO # 0.3 x10^3/uL (0.0-1.1); MONO % 8 % (0-9); NEUT # 2.4 x10^3uL (1.8-7.7); NEUT % 62 % (31-73); PLATELET COUNT 116 x10^3/uL (140-400); RED CELL DISTRIBUTION WIDTH 14.4 % (11.5-14.5); WHITE BLOOD COUNT 3.8 x10^3/uL (4.0-11.0)
[2020-03-03 06:56] LABS: ALBUMIN/GLOBULIN RATIO 1.1 (1.0-1.7); CALCIUM 8.6 mg/dL (8.5-10.1)
[2020-03-03 07:55] LABS: ALBUMIN 3.2 g/dL (3.4-5.0); CREATININE 1.3 mg/dL (0.7-1.3); GFR 52.6; POTASSIUM 3.9 mmol/L (3.5-5.1); TOTAL BILIRUBIN 0.9 mg/dL (0.2-1.0); TOTAL PROTEIN 6.2 g/dL (6.4-8.2)
[2020-03-03] MEDS: MEMANTINE 10 MG TABLET. PO SCH ×2 (08:32→19:59)
[2020-03-03] MEDS: SERTRALINE 50 MG TABLET. PO SCH (08:32)
[2020-03-03] MEDS: ISOSORBIDE MONONITRATE ER 30 MG TAB.ER.24H PO SCH (08:33)
[2020-03-03] MEDS: glipiZIDE 5 MG TABLET PO SCH (08:33)
[2020-03-03] MEDS: SPIRONOLACTONE 25 MG TABLET PO SCH (08:33)
[2020-03-03] MEDS: ASPIRIN ENTERIC COATED 81 MG TABLET.DR. PO SCH (08:33)
[2020-03-03] MEDS: METOPROLOL TART IMMED RELEASE 50 MG TABLET PO SCH ×2 (08:33→19:59)
[2020-03-03] MEDS: LOSARTAN 50 MG TABLET. PO SCH (08:34)
--- NOTE | 2020-03-03 10:22 | NUR ---
Patient is calm and cooperative. Patient have in-depth disorganized conversation with staff. Patients stated he slept well last night.
[2020-03-03 16:15] VITALS: BP 109/62
[2020-03-03] MEDS: MIRTAZAPINE 7.5 MG TABLET. PO SCH (19:59)
[2020-03-03] MEDS: ATORVASTATIN CALCIUM 20 MG TABLET PO SCH (19:59)
--- NOTE | 2020-03-03 22:00 | NUR ---
Patient is located in his room on assumption of care, awake in bed. He is pleasant, disorganized. He is compliant with assessments and medications taken crushed and mixed with chocolate pudding. Needs reminders to wear his mask properly when out of his room. No agitation. Denies any pain or discomfort. Denies SI/HI. Patient appears to be sleeping comfortably at present time.
--- NOTE | 2020-03-03 22:01 | PDOC ---
Exam Note: Jamie Note: Please also refer to the separate dictated note~for this date of service dictated separately.~Patient seen individually. Discussed the patient with Nursing staff reviewed the chart.~Reviewed interim history and current functioning. Reviewed vital signs,~Labs/ Radiology~and current medications noted below. Continue current treatment with the changes noted in the dictated addendum note Assessment: Vital Signs/I&O: Vital Signs Date Time Temp Pulse Resp B/P (MAP) Pulse Ox O2 Delivery O2 Flow Rate FiO2 03/03/20 19:59 72 109/62 03/03/20 16:15 97.8 19 98 Room Air I & O 03/02/20 03/02/20 03/03/20 15:00 23:00 07:00 Intake Total 240 ml 600 ml 120 ml Balance 240 ml 600 ml 120 ml Labs: Laboratory Tests Test 03/03/20 06:15 03/03/20 08:10 03/03/20 19:43 White Blood Count 3.8 x10^3/uL (4.0-11.0) L Red Blood Count 4.20 x10^6/uL (4.30-5.70) L Hemoglobin 13.6 g/dL (13.0-17.5) Hematocrit 40.8 % (39.0-53.0) Mean Corpuscular Volume 97 fL (79-100) Mean Corpuscular Hemoglobin 32 pg (25-35) Mean Corpuscular Hemoglobin Concent 33 g/dL (31-37) Red Cell Distribution Width 14.4 % (11.5-14.5) Platelet Count 116 x10^3/uL (140-400) L Neutrophils (%) (Auto) 62 % (31-73) Lymphocytes (%) (Auto) 28 % (24-48) Monocytes (%) (Auto) 8 % (0-9) Eosinophils (%) (Auto) 2 % (0-3) Basophils (%) (Auto) 1 % (0-3) Neutrophils # (Auto) 2.4 x10^3uL (1.8-7.7) Lymphocytes # (Auto) 1.1 x10^3/uL (1.0-4.8) Monocytes # (Auto) 0.3 x10^3/uL (0.0-1.1) Eosinophils # (Auto) 0.1 x10^3/uL (0.0-0.7) Basophils # (Auto) 0.0 x10^3/uL (0.0-0.2) Sodium Level 143 mmol/L (136-145) Potassium Level 3.9 mmol/L (3.5-5.1) Chloride Level 109 mmol/L (98-107) H Carbon Dioxide Level 29 mmol/L (21-32) Anion Gap 5 (6-14) L Blood Urea Nitrogen 31 mg/dL (8-26) H Creatinine 1.3 mg/dL (0.7-1.3) Estimated GFR (Cockcroft-Gault) 52.6 BUN/Creatinine Ratio 24 (6-20) H Glucose Level 93 mg/dL (70-99) Calcium Level 8.6 mg/dL (8.5-10.1) Total Bilirubin 0.9 mg/dL (0.2-1.0) Aspartate Amino Transferase (AST) 58 U/L (15-37) H Alanine Aminotransferase (ALT) 68 U/L (16-63) H Alkaline Phosphatase 91 U/L (46-116) Total Protein 6.2 g/dL (6.4-8.2) L Albumin 3.2 g/dL (3.4-5.0) L Albumin/Globulin Ratio 1.1 (1.0-1.7) Glucose (Fingerstick) 101 mg/dL (70-99) H 157 mg/dL (70-99) H Current Medications: I have reviewed the current psychotropics carefully including drug interactions. Risk benefit ratio favors no change other than as noted in my dictated progress note. Diagnosis: Problems: (1) Impulse control disorder, unspecified (2) Anxiety disorder, unspecified (3) Dementia, vascular, with depression (4) Dementia, vascular, with delusions (5) Dementia in Alzheimer's disease with depression (6) Dementia in Alzheimer's disease with delusions (7) Dementia of the Alzheimer's type with early onset with behavioral disturbance (8) Major neurocognitive disorder CLEMENTE BUTLER MD Mar 03, 2020 22:01
[2020-03-04 05:13] VITALS: BP 138/84
[2020-03-04] MEDS: MEMANTINE 10 MG TABLET. PO SCH ×2 (09:05→21:09)
[2020-03-04] MEDS: METOPROLOL TART IMMED RELEASE 50 MG TABLET PO SCH ×2 (09:06→21:09)
[2020-03-04] MEDS: glipiZIDE 5 MG TABLET PO SCH (09:06)
[2020-03-04] MEDS: SERTRALINE 50 MG TABLET. PO SCH (09:06)
[2020-03-04] MEDS: LOSARTAN 50 MG TABLET. PO SCH (09:06)
[2020-03-04] MEDS: ISOSORBIDE MONONITRATE ER 30 MG TAB.ER.24H PO SCH (09:06)
[2020-03-04] MEDS: SPIRONOLACTONE 25 MG TABLET PO SCH (09:07)
[2020-03-04] MEDS: ASPIRIN ENTERIC COATED 81 MG TABLET.DR. PO SCH (09:07)
--- NOTE | 2020-03-04 10:05 | NUR ---
Patient is calm and cooperative. Patient have in-depth disorganized conversation with staff. Patients stated he slept well last night.
[2020-03-04 16:12] VITALS: BP 115/65
[2020-03-04] MEDS: MAGNESIUM HYDROXIDE 2,400 MG/30 ML ORAL.SUSP. PO PRN (17:36)
[2020-03-04] MEDS: MIRTAZAPINE 7.5 MG TABLET. PO SCH (21:08)
[2020-03-04] MEDS: ATORVASTATIN CALCIUM 20 MG TABLET PO SCH (21:08)
--- NOTE | 2020-03-04 22:00 | PDOC ---
Exam Note: Jamie Note: Please also refer to the separate dictated note~for this date of service dictated separately.~Patient seen individually. Discussed the patient with Nursing staff reviewed the chart.~Reviewed interim history and current functioning. Reviewed vital signs,~Labs/ Radiology~and current medications noted below. Continue current treatment with the changes noted in the dictated addendum note Assessment: Vital Signs/I&O: Vital Signs Date Time Temp Pulse Resp B/P (MAP) Pulse Ox O2 Delivery O2 Flow Rate FiO2 03/04/20 21:09 83 115/65 03/04/20 19:49 97.7 99 03/04/20 16:12 18 03/03/20 16:15 Room Air I & O 03/03/20 03/03/20 03/04/20 15:00 23:00 07:00 Intake Total 360 ml 480 ml Balance 360 ml 480 ml Labs: Laboratory Tests Test 03/04/20 08:28 03/04/20 19:10 Glucose (Fingerstick) 94 mg/dL (70-99) 119 mg/dL (70-99) H Current Medications: I have reviewed the current psychotropics carefully including drug interactions. Risk benefit ratio favors no change other than as noted in my dictated progress note. 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
--- NOTE | 2020-03-04 22:27 | NUR ---
Pt has been pleasant and social tonight he seems to enjoy visiting with peers in hallway. HS meds taken without difficulty. No behaviors tonight.
[2020-03-05] MEDS: traZODone 50 MG TABLET. PO PRN ×2 (00:43→20:01)
[2020-03-05 05:48] VITALS: BP 143/85
[2020-03-05] MEDS: DOCUSATE SODIUM 100 MG CAPSULE PO SCH (09:00)
[2020-03-05] MEDS: glipiZIDE 5 MG TABLET PO SCH (09:30)
[2020-03-05] MEDS: ASPIRIN ENTERIC COATED 81 MG TABLET.DR. PO SCH (09:30)
[2020-03-05] MEDS: ISOSORBIDE MONONITRATE ER 30 MG TAB.ER.24H PO SCH (09:30)
[2020-03-05] MEDS: LOSARTAN 50 MG TABLET. PO SCH (09:30)
[2020-03-05] MEDS: MEMANTINE 10 MG TABLET. PO SCH ×2 (09:30→20:01)
[2020-03-05] MEDS: SERTRALINE 50 MG TABLET. PO SCH (09:31)
[2020-03-05] MEDS: SPIRONOLACTONE 25 MG TABLET PO SCH (09:31)
[2020-03-05] MEDS: METOPROLOL TART IMMED RELEASE 50 MG TABLET PO SCH ×2 (09:31→20:02)
--- NOTE | 2020-03-05 11:22 | NUR ---
Pt showered this morning without incident. Pt is calm, compliant with nurse. Pt took medications crushed in pudding, compliant with assessment. Pt does speak, but does not make sense. Pt pleasant. WCTM.
--- NOTE | 2020-03-05 13:00 | NUR ---
WEEKLY ACTIVITY THERAPY NOTE Date of Admission:02/23 Date of AT Assessment:02/24 Precipitating behaviors that initiated intake and admission:hitting , urinating in trash, insomnia, anxiety, sundowning, pacing Goal aimed:increase time management and socialization skills Initial Goal:Pt will participate in one individual Activity Therapy Session before discharge. Weekly progress towards goal: achieved, 3/1 Group participation level: 1 full, 1 mod, 1 min Weekly highlights: enjoyed notebook and pen given to him on Thr 03/01 Behaviors observed: engaged in conversation when initiated by staff, nonsensical, pleasant with peers and staff, redirectable Plan: change goal to: Pt. will participate in at least three individual or group Activity Therapy sessions per week Beneficial adaptations: direct prompting
[2020-03-05] MEDS: MAGNESIUM HYDROXIDE 2,400 MG/30 ML ORAL.SUSP. PO PRN (13:17)
[2020-03-05 16:17] VITALS: BP 127/74
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
[2020-03-05] MEDS: ATORVASTATIN CALCIUM 20 MG TABLET PO SCH (20:01)
[2020-03-05] MEDS: MIRTAZAPINE 7.5 MG TABLET. PO SCH (20:01)
--- NOTE | 2020-03-05 21:57 | PDOC ---
Exam Note: Jamie Note: Please also refer to the separate dictated note~for this date of service dictated separately.~Patient seen individually. Discussed the patient with Nursing staff reviewed the chart.~Reviewed interim history and current functioning. Reviewed vital signs,~Labs/ Radiology~and current medications noted below. Continue current treatment with the changes noted in the dictated addendum note Assessment: Vital Signs/I&O: Vital Signs Date Time Temp Pulse Resp B/P (MAP) Pulse Ox O2 Delivery O2 Flow Rate FiO2 03/05/20 20:02 83 127/74 03/05/20 16:17 98.3 18 93 03/03/20 16:15 Room Air I & O 03/04/20 03/04/20 03/05/20 15:00 23:00 07:00 Intake Total 600 ml 360 ml Balance 600 ml 360 ml Labs: Laboratory Tests Test 03/05/20 20:16 Glucose (Fingerstick) 142 mg/dL (70-99) H Current Medications: I have reviewed the current psychotropics carefully including drug interactions. Risk benefit ratio favors no change other than as noted in my dictated progress note. 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
--- NOTE | 2020-03-06 02:48 | NUR ---
Last evening pt sat in the [facility] visiting with peers. He continues to speak word salad and is pleasant and cooperative. Meds were taken crushed in pudding, PRN trazodone was given at and he has been sleeping since going to bed. He has had no behaviors tonight.
[2020-03-06 05:55] VITALS: BP 158/85
--- NOTE | 2020-03-06 07:08 | PDOC ---
Exam Note: Jamie Note: This note is a late entry for 03/03/2020 covers elements not covered in my initial note. Subjective: The patient was evaluated face to face in the evening of 03/03/2020 with Milton GONZALEZ. The patient slept 6 hours previous night. He is oriented x1, listening to music, seems to calm him down, disorganized, not aggressive. Review of Systems: No CV, , pulmonary, eye, ENT system symptoms on review. Reliability poor. Mental Status Exam: Oriented to himself. Insight and judgment, recent and remote memory, attention and concentration, fund of knowledge consistent with his diagnoses mentioned in my initial note. Laboratory Data: Reviewed. Impression: Major neurocognitive disorder Alzheimer vascular with delusion, depression, behavioral disturbance. Anxiety disorder unspecified. Impulse control disorder unspecified. Plan: No change from initial note. Maintain Namenda 10 mg b.i.d., trazodone 50 mg h.s. p.r.n. May repeat x1, Zyprexa p.r.n., Remeron 7.5 mg h.s., Zoloft 50 mg a day. Assessment: Vital Signs/I&O: Vital Signs Date Time Temp Pulse Resp B/P (MAP) Pulse Ox O2 Delivery O2 Flow Rate FiO2 03/06/20 05:55 97.3 69 20 158/85 (109) 99 03/03/20 16:15 Room Air I & O 03/05/20 03/05/20 03/06/20 15:00 23:00 07:00 Intake Total 720 ml 180 ml 360 ml Balance 720 ml 180 ml 360 ml Labs: Laboratory Tests Test 03/05/20 20:16 Glucose (Fingerstick) 142 mg/dL (70-99) H Current Medications: I have reviewed the current psychotropics carefully including drug interactions. Risk benefit ratio favors no change other than as noted in my dictated progress note. 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
--- NOTE | 2020-03-06 07:47 | PDOC ---
Exam Note: Jamie Note: This note is a late entry for 03/04/2020 covers elements not covered in my initial note. Subjective: The patient was evaluated on telehealth rounds in the evening of 03/04/2020 with Nabeel Padilla RN. Nursing report with Milton GONZALEZ. The patient slept 2 hours previous night. He has had some constipation. Received milk of magnesium. We will add Colace 100 mg a day. He remains confused, redirectable, not aggressive. Review of Systems: No CV, , pulmonary, eye, ENT system symptoms on review. Reliability poor. Mental Status Exam: Oriented to himself. Insight and judgment, recent and remote memory, attention and concentration, fund of knowledge consistent with his diagnoses mentioned in my initial note. Laboratory Data: Reviewed. Impression: Major neurocognitive disorder Alzheimer vascular with delusion, depression, behavioral disturbance. Anxiety disorder unspecified. Impulse control disorder unspecified. Plan: No change from initial note. Maintain Namenda 10 mg b.i.d., trazodone p.r.n. Zyprexa p.r.n., Remeron 7.5 mg h.s., Zoloft 50 mg a day. Assessment: Vital Signs/I&O: Vital Signs Date Time Temp Pulse Resp B/P (MAP) Pulse Ox O2 Delivery O2 Flow Rate FiO2 03/06/20 05:55 97.3 69 20 158/85 (109) 99 03/03/20 16:15 Room Air I & O 03/05/20 03/05/20 03/06/20 15:00 23:00 07:00 Intake Total 720 ml 180 ml 360 ml Balance 720 ml 180 ml 360 ml Labs: Laboratory Tests Test 03/05/20 20:16 Glucose (Fingerstick) 142 mg/dL (70-99) H Current Medications: I have reviewed the current psychotropics carefully including drug interactions. Risk benefit ratio favors no change other than as noted in my dictated progress note. 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
[2020-03-06] MEDS: SERTRALINE 50 MG TABLET. PO SCH (09:51)
[2020-03-06] MEDS: LOSARTAN 50 MG TABLET. PO SCH (09:51)
[2020-03-06] MEDS: DOCUSATE SODIUM 100 MG CAPSULE PO SCH (09:51)
[2020-03-06] MEDS: ASPIRIN ENTERIC COATED 81 MG TABLET.DR. PO SCH (09:51)
[2020-03-06] MEDS: SPIRONOLACTONE 25 MG TABLET PO SCH (09:52)
[2020-03-06] MEDS: glipiZIDE 5 MG TABLET PO SCH (09:52)
[2020-03-06] MEDS: METOPROLOL TART IMMED RELEASE 50 MG TABLET PO SCH ×2 (09:53→20:13)
[2020-03-06] MEDS: ISOSORBIDE MONONITRATE ER 30 MG TAB.ER.24H PO SCH (09:53)
[2020-03-06] MEDS: MEMANTINE 10 MG TABLET. PO SCH ×2 (09:53→20:12)
--- NOTE | 2020-03-06 14:23 | NUR ---
Patient is friendly and sociable, he spent most of the morning sitting in a chair looking at the newspaper. Patient is interactive although most of his words don't makes sense. He forgets to wear his mask but is pleasant and puts it on when asked. Patient compliant with medications crushed in pudding. He has had no adverse behaviors this day, he slept 6.5 hours last night.
[2020-03-06 16:15] VITALS: BP 103/56
[2020-03-06] MEDS: ATORVASTATIN CALCIUM 20 MG TABLET PO SCH (20:13)
[2020-03-06] MEDS: MIRTAZAPINE 7.5 MG TABLET. PO SCH (20:14)
--- NOTE | 2020-03-06 22:07 | PDOC ---
Exam Note: Jamie Note: Please also refer to the separate dictated note~for this date of service dictated separately.~Patient seen individually. Discussed the patient with Nursing staff reviewed the chart.~Reviewed interim history and current functioning. Reviewed vital signs,~Labs/ Radiology~and current medications noted below. Continue current treatment with the changes noted in the dictated addendum note Assessment: Vital Signs/I&O: Vital Signs Date Time Temp Pulse Resp B/P (MAP) Pulse Ox O2 Delivery O2 Flow Rate FiO2 03/06/20 20:13 65 103/56 03/06/20 16:15 97.3 18 94 Room Air I & O 03/05/20 03/05/20 03/06/20 15:00 23:00 07:00 Intake Total 720 ml 180 ml 360 ml Balance 720 ml 180 ml 360 ml Labs: Laboratory Tests Test 03/06/20 07:46 03/06/20 19:27 Glucose (Fingerstick) 78 mg/dL (70-99) 120 mg/dL (70-99) H Current Medications: I have reviewed the current psychotropics carefully including drug interactions. Risk benefit ratio favors no change other than as noted in my dictated progress note. 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
[2020-03-07 06:39] VITALS: BP 135/66
--- NOTE | 2020-03-07 07:18 | PDOC ---
Exam Note: Jamie Note: This note is a late entry for 03/05/2020 covers elements not covered in my initial note. Subjective: The patient was reviewed face to face in the morning of 03/05/2020 with treatment team meeting with Yisle (social service staff), Priya, activity therapy, and Rick GONZALEZ. His daughter Valorie was to attend the treatment team meeting but was unavailable. He slept 6-1/4 hours previous night. He was confused, took a shower in the morning, cooperative with this. Review of Systems: No CV, , pulmonary, eye, ENT system symptoms on review. Mental Status Exam: He is very much more pleasant. Remains confused. Tries to have a conversation, quite disorganized with some loose associations but paranoia and agitation has improved. Insight and judgment, recent and remote memory, attention and concentration, fund of knowledge consistent with his diagnoses. Laboratory Data: Reviewed. Impression: Major neurocognitive disorder Alzheimer vascular with delusion, depression, behavioral disturbance. Anxiety disorder unspecified. Impulse control disorder unspecified. Plan: No change from initial note. Assessment: Vital Signs/I&O: Vital Signs Date Time Temp Pulse Resp B/P (MAP) Pulse Ox O2 Delivery O2 Flow Rate FiO2 03/07/20 06:39 97.3 64 16 135/66 (89) 99 03/06/20 16:15 Room Air I & O 03/06/20 03/06/20 03/07/20 15:00 23:00 07:00 Intake Total 600 ml 480 ml Balance 600 ml 480 ml Labs: Laboratory Tests Test 03/06/20 07:46 03/06/20 19:27 Glucose (Fingerstick) 78 mg/dL (70-99) 120 mg/dL (70-99) H Current Medications: I have reviewed the current psychotropics carefully including drug interactions. Risk benefit ratio favors no change other than as noted in my dictated progress note. 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
--- NOTE | 2020-03-07 07:31 | PDOC ---
Exam Note: Jamie Note: This note is a late entry for 03/06/2020 covers elements not covered in my initial note. Subjective: The patient was evaluated on telehealth rounds in the evening of 03/06/2020 because of the COVID-19 pandemic restrictions with [facility] nursing aid. Nursing report was with Valorie GONZALEZ. The patient slept 6-1/2 hours previous night. He remains confused, forgets to use his mask in the hallway, has to be redirected, otherwise spends time in his room. Review of Systems: No CV, , pulmonary, eye, ENT system symptoms on review. Reliability poor. Mental Status Exam: Oriented to himself. He is very pleasant, verbal, interactive, disorganized as I met with him on telehealth rounds. Insight and judgment, recent and remote memory, attention and concentration, fund of knowledge consistent with his diagnoses mentioned in my initial note. Laboratory Data: Reviewed. Impression: Major neurocognitive disorder Alzheimer vascular with delusion, d epression, behavioral disturbance. Anxiety disorder unspecified. Impulse control disorder unspecified. Plan: No change from initial note. Assessment: Vital Signs/I&O: Vital Signs Date Time Temp Pulse Resp B/P (MAP) Pulse Ox O2 Delivery O2 Flow Rate FiO2 03/07/20 06:39 97.3 64 16 135/66 (89) 99 03/06/20 16:15 Room Air I & O 03/06/20 03/06/20 03/07/20 15:00 23:00 07:00 Intake Total 600 ml 480 ml Balance 600 ml 480 ml Labs: Laboratory Tests Test 03/06/20 07:46 03/06/20 19:27 Glucose (Fingerstick) 78 mg/dL (70-99) 120 mg/dL (70-99) H Current Medications: I have reviewed the current psychotropics carefully including drug interactions. Risk benefit ratio favors no change other than as noted in my dictated progress note. 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
[2020-03-07] MEDS: SERTRALINE 50 MG TABLET. PO SCH (09:20)
[2020-03-07] MEDS: LOSARTAN 50 MG TABLET. PO SCH (09:20)
[2020-03-07] MEDS: SPIRONOLACTONE 25 MG TABLET PO SCH (09:21)
[2020-03-07] MEDS: ASPIRIN ENTERIC COATED 81 MG TABLET.DR. PO SCH (09:21)
[2020-03-07] MEDS: DOCUSATE SODIUM 100 MG CAPSULE PO SCH (09:21)
[2020-03-07] MEDS: glipiZIDE 5 MG TABLET PO SCH (09:21)
[2020-03-07] MEDS: ISOSORBIDE MONONITRATE ER 30 MG TAB.ER.24H PO SCH (09:22)
[2020-03-07] MEDS: MEMANTINE 10 MG TABLET. PO SCH ×2 (09:22→20:17)
[2020-03-07] MEDS: METOPROLOL TART IMMED RELEASE 50 MG TABLET PO SCH ×2 (09:22→20:18)
[2020-03-07 09:25] VITALS: BP 149/85
--- NOTE | 2020-03-07 16:09 | NUR ---
Patient is compliant with medications taken crushed in pudding. He is calm and cooperative. He received a call from his daughter today and was smiling while talking to her. No adverse behaviors noted at this time.
[2020-03-07 16:25] VITALS: BP 120/68
[2020-03-07] MEDS ORDERED: SENNOSIDES 8.6 MG TABLET PO PRN (17:45)
[2020-03-07] MEDS: MIRTAZAPINE 7.5 MG TABLET. PO SCH (20:18)
[2020-03-07] MEDS: ATORVASTATIN CALCIUM 20 MG TABLET PO SCH (20:18)
--- NOTE | 2020-03-07 22:04 | PDOC ---
Exam Note: Jamie Note: Please also refer to the separate dictated note~for this date of service dictated separately.~Patient seen individually. Discussed the patient with Nursing staff reviewed the chart.~Reviewed interim history and current functioning. Reviewed vital signs,~Labs/ Radiology~and current medications noted below. Continue current treatment with the changes noted in the dictated addendum note Assessment: Vital Signs/I&O: Vital Signs Date Time Temp Pulse Resp B/P (MAP) Pulse Ox O2 Delivery O2 Flow Rate FiO2 03/07/20 21:54 97.2 100 03/07/20 20:18 78 120/68 03/07/20 16:25 18 03/07/20 09:25 Room Air I & O 03/06/20 03/06/20 03/07/20 15:00 23:00 07:00 Intake Total 600 ml 480 ml Balance 600 ml 480 ml Labs: Laboratory Tests Test 03/07/20 08:02 03/07/20 19:18 Glucose (Fingerstick) 90 mg/dL (70-99) 167 mg/dL (70-99) H Current Medications: I have reviewed the current psychotropics carefully including drug interactions. Risk benefit ratio favors no change other than as noted in my dictated progress note. Diagnosis: Problems: (1) Impulse control disorder, unspecified (2) Anxiety disorder, unspecified (3) Dementia, vascular, with depression (4) Dementia, vascular, with delusions (5) Dementia in Alzheimer's disease with depression (6) Dementia in Alzheimer's disease with delusions (7) Dementia of the Alzheimer's type with early onset with behavioral disturbance (8) Major neurocognitive disorder (9) Major neurocognitive disorder, due to vascular disease, with behavioral disturbance, mild CLEMENTE BUTLER MD Mar 07, 2020 22:04
--- NOTE | 2020-03-07 23:42 | NUR ---
Nursing Note Pt wanders the unit in a "male pack" talking and looking over the environment. They seem to be all individually confused, but happy to be together doing tiffany stuff. Takes meds crushed in vanilla pudding. Pleasant and cooperative.
[2020-03-08] MEDS: METOPROLOL TART IMMED RELEASE 50 MG TABLET PO SCH ×2 (06:57→21:07)
[2020-03-08] MEDS: glipiZIDE 5 MG TABLET PO SCH (06:57)
[2020-03-08] MEDS: ASPIRIN ENTERIC COATED 81 MG TABLET.DR. PO SCH (06:57)
[2020-03-08] MEDS: ISOSORBIDE MONONITRATE ER 30 MG TAB.ER.24H PO SCH (06:58)
[2020-03-08] MEDS: SERTRALINE 50 MG TABLET. PO SCH (06:58)
[2020-03-08] MEDS: LOSARTAN 50 MG TABLET. PO SCH (06:58)
[2020-03-08] MEDS: MEMANTINE 10 MG TABLET. PO SCH ×2 (06:58→21:06)
[2020-03-08] MEDS: SPIRONOLACTONE 25 MG TABLET PO SCH (06:59)
[2020-03-08] MEDS: POLYETHYLENE GLYCOL 3350 17 GM PACKET. PO SCH (07:02)
[2020-03-08 07:14] VITALS: BP 130/78
--- NOTE | 2020-03-08 11:16 | NUR ---
Nursing Note Pt pleasantly confused, cooperative and compliant. Meds given in pudding. Very confused cannot follow instructions but is pleasant.
[2020-03-08 16:40] VITALS: BP 110/68
[2020-03-08] MEDS: MIRTAZAPINE 7.5 MG TABLET. PO SCH (21:05)
[2020-03-08] MEDS: ATORVASTATIN CALCIUM 20 MG TABLET PO SCH (21:06)
--- NOTE | 2020-03-08 22:05 | PDOC ---
Exam Note: Jamie Note: Please also refer to the separate dictated note~for this date of service dictated separately.~Patient seen individually. Discussed the patient with Nursing staff reviewed the chart.~Reviewed interim history and current functioning. Reviewed vital signs,~Labs/ Radiology~and current medications noted below. Continue current treatment with the changes noted in the dictated addendum note Assessment: Vital Signs/I&O: Vital Signs Date Time Temp Pulse Resp B/P (MAP) Pulse Ox O2 Delivery O2 Flow Rate FiO2 03/08/20 21:07 64 110/68 03/08/20 16:40 98.5 16 99 03/07/20 09:25 Room Air I & O 03/07/20 03/07/20 03/08/20 15:00 23:00 07:00 Intake Total 240 ml 360 ml Balance 240 ml 360 ml Labs: Laboratory Tests Test 03/08/20 07:44 Glucose (Fingerstick) 112 mg/dL (70-99) H Current Medications: Meds: Current Medications Medications (Trade) Dose Ordered Sig/Neto Route PRN Reason Start Time Stop Time Status Last Admin Dose Admin Polyethylene Glycol (miraLAX) 17 gm DAILY PO 03/08/20 09:00 03/08/20 07:02 I have reviewed the current psychotropics carefully including drug interactions. Risk benefit ratio favors no change other than as noted in my dictated progress note. Diagnosis: Problems: (1) Impulse control disorder, unspecified (2) Anxiety disorder, unspecified (3) Dementia, vascular, with depression (4) Dementia, vascular, with delusions (5) Dementia in Alzheimer's disease with depression (6) Dementia in Alzheimer's disease with delusions (7) Dementia of the Alzheimer's type with early onset with behavioral disturbance (8) Major neurocognitive disorder, due to vascular disease, with behavioral disturbance, mild CLEMENTE BUTLER MD Mar 08, 2020 22:04
--- NOTE | 2020-03-08 22:53 | NUR ---
Pt pleasantly confused. Wanders unit and needs many reminders to keep his mask on. Compliant with crushed medications. No agitation or aggression.
[2020-03-09 06:32] VITALS: BP 163/83
--- NOTE | 2020-03-09 07:06 | PDOC ---
Exam Note: Jamie Note: This note is a late entry for 03/07/2020 covers elements not covered in my initial note. Subjective: The patient was evaluated face to face with Valorie GONZALEZ in the evening of 03/07/2020. The patient slept 7-1/4 hours previous night. He has been somewhat restless, anxious but redirectable; obsessively flushing the toilet. Has had no bowel movement. Family concerned about this. We will defer to Dr. Hernández. Review of Systems: No CV, , pulmonary, eye, ENT system symptoms on review. Mental Status Exam: Oriented to himself. Insight and judgment, recent and r emote memory, attention and concentration, fund of knowledge consistent with his diagnoses mentioned in my initial note. Laboratory Data: Reviewed. Impression: Major neurocognitive disorder Alzheimer vascular with delusion, depression, behavioral disturbance. Anxiety disorder unspecified. Impulse control disorder unspecified. Plan: No change from initial note. Assessment: Vital Signs/I&O: Vital Signs Date Time Temp Pulse Resp B/P (MAP) Pulse Ox O2 Delivery O2 Flow Rate FiO2 03/09/20 06:32 97.4 60 16 163/83 (109) 100 03/07/20 09:25 Room Air I & O 03/08/20 03/08/20 03/09/20 15:00 23:00 07:00 Intake Total 600 ml 360 ml Balance 600 ml 360 ml Labs: Laboratory Tests Test 03/08/20 07:44 Glucose (Fingerstick) 112 mg/dL (70-99) H Current Medications: Meds: Current Medications Medications (Trade) Dose Ordered Sig/Neto Route PRN Reason Start Time Stop Time Status Last Admin Dose Admin Polyethylene Glycol (miraLAX) 17 gm DAILY PO 03/08/20 09:00 03/08/20 07:02 I have reviewed the current psychotropics carefully including drug interactions. Risk benefit ratio favors no change other than as noted in my dictated progress note. Diagnosis: Problems: (1) Impulse control disorder, unspecified (2) Anxiety disorder, unspecified (3) Dementia, vascular, with depression (4) Dementia, vascular, with delusions (5) Dementia in Alzheimer's disease with depression (6) Dementia in Alzheimer's disease with delusions (7) Dementia of the Alzheimer's type with early onset with behavioral disturbance (8) Major neurocognitive disorder, due to vascular disease, with behavioral disturbance, mild CLEMENTE BUTLER MD Mar 09, 2020 07:06
--- NOTE | 2020-03-09 07:37 | PDOC ---
Exam Note: Jamie Note: This note is a late entry for 03/08/2020 covers elements not covered in my initial note. Subjective: The patient was evaluated face to face in the evening of 03/08/2020 with Lindy GONZALEZ. No behaviors noted. Review of Systems: No CV, , pulmonary, eye, ENT system symptoms on review. Reliability poor. Mental Status Exam: Oriented to himself. Insight and judgment, recent and remote memory, attention and concentration, fund of knowledge consistent with his diagnoses mentioned in my initial note. Laboratory Data: Reviewed. Impression: Major neurocognitive disorder Alzheimer vascular with delusion, depression, behavioral disturbance. Anxiety disorder unspecified. Impulse control disorder unspecified. Plan: In the evening I got a call from [facility] staff. She indicated family was concerned if we could have additional psychotropics to help his agitation since he would probably be returning home with them. We will go a head and add Seroquel 12.5 mg 9 a.m. and 5 p.m. Assessment: Vital Signs/I&O: Vital Signs Date Time Temp Pulse Resp B/P (MAP) Pulse Ox O2 Delivery O2 Flow Rate FiO2 03/09/20 06:32 97.4 60 16 163/83 (109) 100 03/07/20 09:25 Room Air I & O 03/08/20 03/08/20 03/09/20 15:00 23:00 07:00 Intake Total 600 ml 360 ml Balance 600 ml 360 ml Labs: Laboratory Tests Test 03/08/20 07:44 Glucose (Fingerstick) 112 mg/dL (70-99) H Current Medications: Meds: Current Medications Medications (Trade) Dose Ordered Sig/Neto Route PRN Reason Start Time Stop Time Status Last Admin Dose Admin Polyethylene Glycol (miraLAX) 17 gm DAILY PO 03/08/20 09:00 03/08/20 07:02 I have reviewed the current psychotropics carefully including drug interactions. Risk benefit ratio favors no change other than as noted in my dictated progress note. Diagnosis: Problems: (1) Impulse control disorder, unspecified (2) Anxiety disorder, unspecified (3) Dementia, vascular, with depression (4) Dementia, vascular, with delusions (5) Dementia in Alzheimer's disease with depression (6) Dementia in Alzheimer's disease with delusions (7) Dementia of the Alzheimer's type with early onset with behavioral disturbance (8) Major neurocognitive disorder (9) Major neurocognitive disorder, due to vascular disease, with behavioral disturbance, mild CLEMENTE BUTLER MD Mar 09, 2020 07:37
[2020-03-09] MEDS: ASPIRIN ENTERIC COATED 81 MG TABLET.DR. PO SCH (08:59)
[2020-03-09] MEDS: glipiZIDE 5 MG TABLET PO SCH (08:59)
[2020-03-09] MEDS: METOPROLOL TART IMMED RELEASE 50 MG TABLET PO SCH ×2 (09:00→20:34)
[2020-03-09] MEDS: SPIRONOLACTONE 25 MG TABLET PO SCH (09:00)
[2020-03-09] MEDS: LOSARTAN 50 MG TABLET. PO SCH (09:00)
[2020-03-09] MEDS: QUEtiapine 25 MG TABLET. PO SCH ×2 (09:01→16:31)
[2020-03-09] MEDS: ISOSORBIDE MONONITRATE ER 30 MG TAB.ER.24H PO SCH (09:01)
[2020-03-09] MEDS: POLYETHYLENE GLYCOL 3350 17 GM PACKET. PO SCH (09:01)
[2020-03-09] MEDS: SERTRALINE 50 MG TABLET. PO SCH (09:01)
[2020-03-09] MEDS: MEMANTINE 10 MG TABLET. PO SCH ×2 (09:02→20:32)
--- NOTE | 2020-03-09 10:10 | NUR ---
Pt is calm and compliant. Took medications crushed in pudding, followed by water. Pt did not like the taste but did swallow them. Pt compliant with assessment. Eating breakfast. WCTM.
--- NOTE | 2020-03-09 13:24 | NUR ---
DARYA contacted pt dtr Orin to let her know that we will be able to call her during team to answer her questions. DARYA also notified Karlie that the unit as of now is on hold as a pt tested as positive; so until we get more direction from the health department, the Behavioral Unit will do no admissions in and no discharges out. We are hopefully to hear back today if not Thursday. DARYA will follow up with pt family.
--- NOTE | 2020-03-09 13:40 | NUR ---
Resumed pt care.
[2020-03-09 17:03] VITALS: BP 134/79
[2020-03-09] MEDS: traZODone 50 MG TABLET. PO PRN (20:32)
[2020-03-09] MEDS: MIRTAZAPINE 7.5 MG TABLET. PO SCH (20:32)
[2020-03-09] MEDS: ATORVASTATIN CALCIUM 20 MG TABLET PO SCH (20:32)
--- NOTE | 2020-03-09 22:00 | PDOC ---
Exam Note: Jamie Note: Please also refer to the separate dictated note~for this date of service dictated separately.~Patient seen individually. Discussed the patient with Nursing staff reviewed the chart.~Reviewed interim history and current functioning. Reviewed vital signs,~Labs/ Radiology~and current medications noted below. Continue current treatment with the changes noted in the dictated addendum note Assessment: Vital Signs/I&O: Vital Signs Date Time Temp Pulse Resp B/P (MAP) Pulse Ox O2 Delivery O2 Flow Rate FiO2 03/09/20 20:34 71 156/79 03/09/20 17:03 97.5 16 98 03/07/20 09:25 Room Air I & O 03/08/20 03/08/20 03/09/20 15:00 23:00 07:00 Intake Total 600 ml 360 ml Balance 600 ml 360 ml Labs: Laboratory Tests Test 03/09/20 07:36 03/09/20 10:35 Glucose (Fingerstick) 110 mg/dL (70-99) H Coronavirus (PCR) Not detected (Not Detected) Current Medications: Meds: Current Medications Medications (Trade) Dose Ordered Sig/Neto Route PRN Reason Start Time Stop Time Status Last Admin Dose Admin Quetiapine Fumarate (SEROquel) 12.5 mg BID@0900,1700 PO 03/09/20 09:00 03/09/20 16:31 I have reviewed the current psychotropics carefully including drug interactions. Risk benefit ratio favors no change other than as noted in my dictated progress note. Diagnosis: Problems: (1) Impulse control disorder, unspecified (2) Anxiety disorder, unspecified (3) Dementia, vascular, with depression (4) Dementia, vascular, with delusions (5) Dementia in Alzheimer's disease with depression (6) Dementia in Alzheimer's disease with delusions (7) Dementia of the Alzheimer's type with early onset with behavioral disturbance (8) Major neurocognitive disorder, due to vascular disease, with behavioral disturbance, mild CLEMENTE BUTLER MD Mar 09, 2020 21:59
[2020-03-09 22:07] VITALS: BP 132/73
--- NOTE | 2020-03-09 22:40 | NUR ---
Nursing note: Pt compliant with meds and assessment. Pt took meds crushed in pudding. Pt was in bed during assessment. Pt pleasant.
[2020-03-10 06:35] VITALS: BP 142/72
[2020-03-10 08:46] LABS: BASO % 0 % (0-3); EOS # 0.1 x10^3/uL (0.0-0.7); EOS % 2 % (0-3); HEMATOCRIT 42.9 % (39.0-53.0); HEMOGLOBIN 14.3 g/dL (13.0-17.5); LYMPH # 1.1 x10^3/uL (1.0-4.8); LYMPH % 30 % (24-48); MEAN CORPUSCULAR HEMOGLOBIN 32 pg (25-35); MEAN CORPUSCULAR HGB CONC 33 g/dL (31-37); MEAN CORPUSCULAR VOLUME 97 fL (79-100); MONO # 0.3 x10^3/uL (0.0-1.1); MONO % 8 % (0-9); NEUT # 2.2 x10^3uL (1.8-7.7); NEUT % 60 % (31-73); PLATELET COUNT 101 x10^3/uL (140-400); RED BLOOD COUNT 4.43 x10^6/uL (4.30-5.70); RED CELL DISTRIBUTION WIDTH 14.8 % (11.5-14.5); WHITE BLOOD COUNT 3.7 x10^3/uL (4.0-11.0)
[2020-03-10] MEDS: POLYETHYLENE GLYCOL 3350 17 GM PACKET. PO SCH (09:14)
[2020-03-10] MEDS: METOPROLOL TART IMMED RELEASE 50 MG TABLET PO SCH ×2 (09:15→21:00)
[2020-03-10] MEDS: SERTRALINE 50 MG TABLET. PO SCH (09:15)
[2020-03-10] MEDS: ASPIRIN ENTERIC COATED 81 MG TABLET.DR. PO SCH (09:15)
[2020-03-10] MEDS: LOSARTAN 50 MG TABLET. PO SCH (09:15)
[2020-03-10] MEDS: MEMANTINE 10 MG TABLET. PO SCH ×2 (09:15→21:59)
[2020-03-10] MEDS: glipiZIDE 5 MG TABLET PO SCH (09:15)
[2020-03-10] MEDS: QUEtiapine 25 MG TABLET. PO SCH ×2 (09:15→17:16)
[2020-03-10] MEDS: SPIRONOLACTONE 25 MG TABLET PO SCH (09:16)
[2020-03-10] MEDS: ISOSORBIDE MONONITRATE ER 30 MG TAB.ER.24H PO SCH (09:16)
[2020-03-10 09:48] LABS: ALBUMIN 3.2 g/dL (3.4-5.0); CREATININE 1.6 mg/dL (0.7-1.3); GFR 41.4; POTASSIUM 3.9 mmol/L (3.5-5.1); TOTAL BILIRUBIN 0.8 mg/dL (0.2-1.0); TOTAL PROTEIN 6.4 g/dL (6.4-8.2)
--- NOTE | 2020-03-10 10:10 | NUR ---
Patient is calm and cooperative. Patient have in-depth disorganized conversation with staff. Patients stated he slept well last night.
[2020-03-10 15:51] VITALS: BP 95/64
--- NOTE | 2020-03-10 21:57 | PDOC ---
Exam Note: Jamie Note: Please also refer to the separate dictated note~for this date of service dictated separately.~Patient seen individually. Discussed the patient with Nursing staff reviewed the chart.~Reviewed interim history and current functioning. Reviewed vital signs,~Labs/ Radiology~and current medications noted below. Continue current treatment with the changes noted in the dictated addendum note Assessment: Vital Signs/I&O: Vital Signs Date Time Temp Pulse Resp B/P (MAP) Pulse Ox O2 Delivery O2 Flow Rate FiO2 03/10/20 15:51 97.7 61 16 95/64 (74) 99 Room Air I & O 03/09/20 03/09/20 03/10/20 15:00 23:00 07:00 Intake Total 480 ml 100 ml Balance 480 ml 100 ml Labs: Laboratory Tests Test 03/10/20 07:51 03/10/20 07:55 Glucose (Fingerstick) 92 mg/dL (70-99) White Blood Count 3.7 x10^3/uL (4.0-11.0) L Red Blood Count 4.43 x10^6/uL (4.30-5.70) Hemoglobin 14.3 g/dL (13.0-17.5) Hematocrit 42.9 % (39.0-53.0) Mean Corpuscular Volume 97 fL (79-100) Mean Corpuscular Hemoglobin 32 pg (25-35) Mean Corpuscular Hemoglobin Concent 33 g/dL (31-37) Red Cell Distribution Width 14.8 % (11.5-14.5) H Platelet Count 101 x10^3/uL (140-400) L Neutrophils (%) (Auto) 60 % (31-73) Lymphocytes (%) (Auto) 30 % (24-48) Monocytes (%) (Auto) 8 % (0-9) Eosinophils (%) (Auto) 2 % (0-3) Basophils (%) (Auto) 0 % (0-3) Neutrophils # (Auto) 2.2 x10^3uL (1.8-7.7) Lymphocytes # (Auto) 1.1 x10^3/uL (1.0-4.8) Monocytes # (Auto) 0.3 x10^3/uL (0.0-1.1) Eosinophils # (Auto) 0.1 x10^3/uL (0.0-0.7) Basophils # (Auto) 0.0 x10^3/uL (0.0-0.2) Sodium Level 145 mmol/L (136-145) Potassium Level 3.9 mmol/L (3.5-5.1) Chloride Level 111 mmol/L (98-107) H Carbon Dioxide Level 27 mmol/L (21-32) Anion Gap 7 (6-14) Blood Urea Nitrogen 38 mg/dL (8-26) H Creatinine 1.6 mg/dL (0.7-1.3) H Estimated GFR (Cockcroft-Gault) 41.4 BUN/Creatinine Ratio 24 (6-20) H Glucose Level 98 mg/dL (70-99) Calcium Level 9.0 mg/dL (8.5-10.1) Total Bilirubin 0.8 mg/dL (0.2-1.0) Aspartate Amino Transferase (AST) 35 U/L (15-37) Alanine Aminotransferase (ALT) 52 U/L (16-63) Alkaline Phosphatase 96 U/L (46-116) Total Protein 6.4 g/dL (6.4-8.2) Albumin 3.2 g/dL (3.4-5.0) L Albumin/Globulin Ratio 1.0 (1.0-1.7) Current Medications: I have reviewed the current psychotropics carefully including drug interactions. Risk benefit ratio favors no change other than as noted in my dictated progress note. Diagnosis: Problems: (1) Impulse control disorder, unspecified (2) Anxiety disorder, unspecified (3) Dementia, vascular, with depression (4) Dementia, vascular, with delusions (5) Dementia in Alzheimer's disease with depression (6) Dementia in Alzheimer's disease with delusions (7) Dementia of the Alzheimer's type with early onset with behavioral disturbance (8) Major neurocognitive disorder, due to vascular disease, with behavioral disturbance, mild CLEMENTE BUTLER MD Mar 10, 2020 21:57
[2020-03-10] MEDS: ATORVASTATIN CALCIUM 20 MG TABLET PO SCH (21:59)
[2020-03-10] MEDS: MIRTAZAPINE 7.5 MG TABLET. PO SCH (21:59)
--- NOTE | 2020-03-10 23:37 | NUR ---
Pt has been calm this evening. Pt wandering out of his room numerous times but cooperative with redirection. Compliant with crushed medications. Pleasantly confused.
[2020-03-11 05:49] VITALS: BP 133/77
[2020-03-11] MEDS: SERTRALINE 50 MG TABLET. PO SCH (08:46)
[2020-03-11] MEDS: SPIRONOLACTONE 25 MG TABLET PO SCH (08:46)
[2020-03-11] MEDS: QUEtiapine 25 MG TABLET. PO SCH ×2 (08:46→16:55)
[2020-03-11] MEDS: ISOSORBIDE MONONITRATE ER 30 MG TAB.ER.24H PO SCH (08:46)
[2020-03-11] MEDS: ASPIRIN ENTERIC COATED 81 MG TABLET.DR. PO SCH (08:46)
[2020-03-11] MEDS: glipiZIDE 5 MG TABLET PO SCH (08:46)
[2020-03-11] MEDS: METOPROLOL TART IMMED RELEASE 50 MG TABLET PO SCH ×2 (08:46→20:52)
[2020-03-11] MEDS: MEMANTINE 10 MG TABLET. PO SCH ×2 (08:46→20:51)
[2020-03-11] MEDS: POLYETHYLENE GLYCOL 3350 17 GM PACKET. PO SCH (08:47)
[2020-03-11] MEDS: LOSARTAN 50 MG TABLET. PO SCH (08:47)
[2020-03-11] MEDS: MAGNESIUM HYDROXIDE 2,400 MG/30 ML ORAL.SUSP. PO PRN (08:47)
--- NOTE | 2020-03-11 09:44 | NUR ---
Patient is calm and cooperative. Patient have in-depth disorganized conversation with staff.
[2020-03-11 15:49] VITALS: BP 103/57
[2020-03-11] MEDS: ATORVASTATIN CALCIUM 20 MG TABLET PO SCH (20:51)
[2020-03-11] MEDS: MIRTAZAPINE 7.5 MG TABLET. PO SCH (20:51)
[2020-03-11] MEDS: traZODone 50 MG TABLET. PO PRN (20:52)
--- NOTE | 2020-03-11 22:02 | PDOC ---
Exam Note: Jamie Note: Please also refer to the separate dictated note~for this date of service dictated separately.~Patient seen individually. Discussed the patient with Nursing staff reviewed the chart.~Reviewed interim history and current functioning. Reviewed vital signs,~Labs/ Radiology~and current medications noted below. Continue current treatment with the changes noted in the dictated addendum note Assessment: Vital Signs/I&O: Vital Signs Date Time Temp Pulse Resp B/P (MAP) Pulse Ox O2 Delivery O2 Flow Rate FiO2 03/11/20 21:01 98.5 100 03/11/20 20:52 61 103/57 03/11/20 15:49 17 Room Air I & O 03/10/20 03/10/20 03/11/20 15:00 23:00 07:00 Intake Total 720 ml 240 ml 120 ml Balance 720 ml 240 ml 120 ml Labs: Laboratory Tests Test 03/11/20 07:55 Glucose (Fingerstick) 87 mg/dL (70-99) Current Medications: I have reviewed the current psychotropics carefully including drug interactions. Risk benefit ratio favors no change other than as noted in my dictated progress note. Diagnosis: Problems: (1) Impulse control disorder, unspecified (2) Anxiety disorder, unspecified (3) Dementia, vascular, with depression (4) Dementia, vascular, with delusions (5) Dementia in Alzheimer's disease with depression (6) Dementia in Alzheimer's disease with delusions (7) Dementia of the Alzheimer's type with early onset with behavioral disturbance (8) Major neurocognitive disorder, due to vascular disease, with behavioral disturbance, mild CLEMENTE BUTLER MD Mar 11, 2020 22:02
--- NOTE | 2020-03-11 22:41 | NUR ---
Pt has been pleasantly confused. Compliant with redirection and crushed medications.
[2020-03-12 05:57] VITALS: BP 139/78
--- NOTE | 2020-03-12 07:02 | PDOC ---
Exam Note: Jamie Note: This note is a late entry for 03/09/2020 covers elements not covered in my initial note. Subjective: The patient was evaluated on telehealth rounds in the evening of 03/09/2020 with [facility] nursing aid as one of the patients on the unit has tested positive for COVID-19 and unit is on a lockdown with no admission and discharges. That is the reason I am doing telehealth rounds to minimize any further spread of the infection. Nursing report with Alicia GONZALEZ. He slept 3- 1/2 hours previous night. He frequently forgets to use his mask, wanders in the hallways. The unit is on lockdown for COVID-19 and it is difficult to redirect him, but otherwise pleasant. Review of Systems: No CV, , pulmonary, eye, ENT system symptoms on review. Mental Status Exam: Oriented to himself. Insight and judgment, recent and remote memory, attention and concentration, fund of knowledge consistent with his diagnoses mentioned in my initial note. Laboratory Data: Reviewed. Impression: Major neurocognitive disorder Alzheimer vascular with delusion, depression, behavioral disturbance. Anxiety disorder unspecified. Impulse control disorder unspecified. Plan: No change from initial note. Assessment: Vital Signs/I&O: Vital Signs Date Time Temp Pulse Resp B/P (MAP) Pulse Ox O2 Delivery O2 Flow Rate FiO2 03/12/20 05:57 97.5 61 16 139/78 (98) 99 Room Air I & O 03/11/20 03/11/20 03/12/20 15:00 23:00 07:00 Intake Total 480 ml 240 ml Balance 480 ml 240 ml Labs: Laboratory Tests Test 03/11/20 07:55 Glucose (Fingerstick) 87 mg/dL (70-99) Current Medications: I have reviewed the current psychotropics carefully including drug interactions. Risk benefit ratio favors no change other than as noted in my dictated progress note. Diagnosis: Problems: (1) Impulse control disorder, unspecified (2) Anxiety disorder, unspecified (3) Dementia, vascular, with depression (4) Dementia, vascular, with delusions (5) Dementia in Alzheimer's disease with depression (6) Dementia in Alzheimer's disease with delusions (7) Dementia of the Alzheimer's type with early onset with behavioral disturbance (8) Major neurocognitive disorder, due to vascular disease, with behavioral disturbance, mild CLEMENTE BUTLER MD Mar 12, 2020 07:02
--- NOTE | 2020-03-12 07:18 | PDOC ---
Exam Note: Jamie Note: This note is a late entry for 03/10/2020 covers elements not covered in my initial note. Subjective: The patient was evaluated on telehealth rounds in the evening of 03/10/2020 with [facility] nursing aid as one of the patients on the unit has tested positive for COVID-19 and unit is on a lockdown with no admission and discharges. That is the reason I am doing telehealth rounds to minimize any further spread of the infection. Nursing report with Milton GONZALEZ. He slept 8 hours previous night. He has been spending more time in his room, somewhat calmer. Review of Systems: No CV, , pulmonary, eye, ENT system symptoms on review. Mental Status Exam: Reasonably oriented. Insight and judgment, recent and remote memory, attention and concentration, fund of knowledge consistent with his diagnoses mentioned in my initial note. Laboratory Data: Reviewed. Impression: Major neurocognitive disorder Alzheimer vascular with delusion, depression, behavioral disturbance. Anxiety disorder unspecified. Impulse control disorder unspecified. Plan: Continue psychotropics from initial note. Assessment: Vital Signs/I&O: Vital Signs Date Time Temp Pulse Resp B/P (MAP) Pulse Ox O2 Delivery O2 Flow Rate FiO2 03/12/20 05:57 97.5 61 16 139/78 (98) 99 Room Air I & O 03/11/20 03/11/20 03/12/20 14:59 22:59 06:59 Intake Total 480 ml 240 ml Balance 480 ml 240 ml Labs: Laboratory Tests Test 03/11/20 07:55 Glucose (Fingerstick) 87 mg/dL (70-99) Current Medications: I have reviewed the current psychotropics carefully including drug interactions. Risk benefit ratio favors no change other than as noted in my dictated progress note. Diagnosis: Problems: (1) Impulse control disorder, unspecified (2) Anxiety disorder, unspecified (3) Dementia, vascular, with depression (4) Dementia, vascular, with delusions (5) Dementia in Alzheimer's disease with depression (6) Dementia in Alzheimer's disease with delusions (7) Dementia of the Alzheimer's type with early onset with behavioral disturbance (8) Major neurocognitive disorder (9) Major neurocognitive disorder, due to vascular disease, with behavioral disturbance, mild CLEMENTE BUTLER MD Mar 12, 2020 07:18
--- NOTE | 2020-03-12 07:28 | PDOC ---
Exam Note: Jamie Note: This note is a late entry for 03/11/2020 covers elements not covered in my initial note. Subjective: The patient was evaluated on telehealth rounds in the evening of 03/11/2020 with [facility] as one of the patients on the unit has tested positive for COVID-19 and unit is on a lockdown with no admission and discharges. That is the reason I am doing telehealth rounds to minimize any further spread of the infection. Nursing report with Milton GONZALEZ. He slept 4 hours previous night. He was somewhat lethargic, tired, has not had a bowel movement, was given milk of magnesium. Review of Systems: No CV, , pulmonary, eye, ENT system symptoms on review. Mental Status Exam: Oriented to himself. Insight and judgment, recent and remote memory, attention and concentration, fund of knowledge consistent with hi s diagnoses mentioned in my initial note. Laboratory Data: Reviewed. Impression: Major neurocognitive disorder Alzheimer vascular with delusion, depression, behavioral disturbance. Anxiety disorder unspecified. Impulse control disorder unspecified. Plan: No change from initial note. Assessment: Vital Signs/I&O: Vital Signs Date Time Temp Pulse Resp B/P (MAP) Pulse Ox O2 Delivery O2 Flow Rate FiO2 03/12/20 05:57 97.5 61 16 139/78 (98) 99 Room Air I & O 03/11/20 03/11/20 03/12/20 15:00 23:00 07:00 Intake Total 480 ml 240 ml Balance 480 ml 240 ml Labs: Laboratory Tests Test 03/11/20 07:55 Glucose (Fingerstick) 87 mg/dL (70-99) Current Medications: I have reviewed the current psychotropics carefully including drug interactions. Risk benefit ratio favors no change other than as noted in my dictated progress note. Diagnosis: Problems: (1) Impulse control disorder, unspecified (2) Anxiety disorder, unspecified (3) Dementia, vascular, with depression (4) Dementia, vascular, with delusions (5) Dementia in Alzheimer's disease with depression (6) Dementia in Alzheimer's disease with delusions (7) Dementia of the Alzheimer's type with early onset with behavioral disturbance (8) Major neurocognitive disorder (9) Major neurocognitive disorder, due to vascular disease, with behavioral disturbance, mild CLEMENTE BUTLER MD Mar 12, 2020 07:28
[2020-03-12] MEDS: SPIRONOLACTONE 25 MG TABLET PO SCH (09:07)
[2020-03-12] MEDS: ASPIRIN ENTERIC COATED 81 MG TABLET.DR. PO SCH (09:08)
[2020-03-12] MEDS: ISOSORBIDE MONONITRATE ER 30 MG TAB.ER.24H PO SCH (09:09)
[2020-03-12] MEDS: glipiZIDE 5 MG TABLET PO SCH (09:09)
[2020-03-12] MEDS: QUEtiapine 25 MG TABLET. PO SCH ×2 (09:10→16:08)
[2020-03-12] MEDS: MEMANTINE 10 MG TABLET. PO SCH ×2 (09:11→20:41)
[2020-03-12] MEDS: POLYETHYLENE GLYCOL 3350 17 GM PACKET. PO SCH (09:11)
[2020-03-12] MEDS: METOPROLOL TART IMMED RELEASE 50 MG TABLET PO SCH ×2 (09:11→20:41)
[2020-03-12] MEDS: LOSARTAN 50 MG TABLET. PO SCH (09:12)
[2020-03-12] MEDS: SERTRALINE 50 MG TABLET. PO SCH (09:14)
--- NOTE | 2020-03-12 12:42 | NUR ---
DARYA returned call to Orin, pt dtr, to go over pt treatment plan being moved to 1600 and making sure they can be called at that time. Orin questioned if DARYA would be able to aid in finding placement that has Medicaid options. DARYA will compile a list; pt dtr asked about [facility] and DARYA explained that [facility] is private pay for [facility] Care. She reports that she spoke with a Jill who told her that they do accept Medicaid. DARYA will follow up on this but reiterated that DARYA loves the [facility] community and works with them frequently. DARYA will make sure to call the family for treatment team this afternoon.
--- NOTE | 2020-03-12 12:46 | NUR ---
Patient sitting in chair during initial assessment. Calm and cooperative with medications taken crushed in pudding. Denies pain. Patient is pleasantly confused but interactive. Patient became combative during COVID test but calmed down within a couple of minutes. Will continue to monitor.
[2020-03-12 16:37] VITALS: BP 146/68
--- NOTE | 2020-03-12 16:53 | NUR ---
Pt dtrs participated in tx team via telephone. At this time, pt is eating roughly 75-100% of meals and sleeping on average 6.25 hours. Pt needs reminders to keep a mask on and does well with the reminders. Pt is cooperative, calm and compliant with cares; compliant with medications crushed in pudding. SW will plan to work with pt family in finding an appropriate place as it was explained that pt has Vascular Dementia and cannot be left alone. With needing reminders and aid with cares a Memory Care unit would be most appropriate. SW will compose the list and get back to the family OLYA.
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
[2020-03-12] MEDS: MIRTAZAPINE 7.5 MG TABLET. PO SCH (20:41)
[2020-03-12] MEDS: ATORVASTATIN CALCIUM 20 MG TABLET PO SCH (20:41)
[2020-03-12] MEDS: traZODone 50 MG TABLET. PO PRN (22:45)
--- NOTE | 2020-03-12 22:58 | NUR ---
Pt has been restless this evening, needing multiple redirection attempts to keep his mask on properly outside of his room. Compliant with crushed medications. Disorganized. PRN Trazodone administered at 2240.
[2020-03-13] MEDS: traZODone 50 MG TABLET. PO PRN (00:34)
[2020-03-13 06:01] VITALS: BP 130/72
--- NOTE | 2020-03-13 06:03 | NUR ---
Pt has been awake and restless the majority of the night. Multiple PRNs utilized but were not effective.
--- NOTE | 2020-03-13 07:33 | PDOC ---
Exam Note: Jamie Note: This note is a late entry for 03/12/2020 covers elements not covered in my initial note. Subjective: The patient was reviewed at treatment team meeting in the morning on telehealth rounds on 03/12/2020 including Yisel, (social service staff), Rosario GONZALEZ. The patients daughter Orin attended the treatment team meeting. The patient is COVID negative screen on today. He slept 6-1/4 hours. Appetite is 85%. Nursing report in the evening was with Naty GONZALEZ. He remains confused, often wanders the hallways without his mask, forgets it. Memory is impaired. Review of Systems: No CV, , pulmonary, eye, ENT system symptoms on review. Mental Status Exam: Oriented to himself. Insight and judgment, recent and remote memory, attention and concentration, fund of knowledge consistent with his diagnoses mentioned in my initial note. Laboratory Data: Reviewed. Impression: Major neurocognitive disorder Alzheimer vascular with delusion, depression, behavioral disturbance. Anxiety disorder unspecified. Impulse control disorder unspecified. Plan: No change from initial note. Dr. Garrido will be covering for me during my vacation from 03/13/2020 to 03/19/2020. Assessment: Vital Signs/I&O: Vital Signs Date Time Temp Pulse Resp B/P (MAP) Pulse Ox O2 Delivery O2 Flow Rate FiO2 03/13/20 06:01 98.0 60 18 130/72 (91) 98 03/12/20 05:57 Room Air I & O 03/12/20 03/12/20 03/13/20 15:00 23:00 07:00 Intake Total 480 ml 440 ml Balance 480 ml 440 ml Labs: Laboratory Tests Test 03/12/20 11:05 SARS-CoV-2 Antigen (Rapid) Negative (NEGATIVE) Current Medications: I have reviewed the current psychotropics carefully including drug interactions. Risk benefit ratio favors no change other than as noted in my dictated progress note. Diagnosis: Problems: (1) Impulse control disorder, unspecified (2) Anxiety disorder, unspecified (3) Dementia, vascular, with depression (4) Dementia, vascular, with delusions (5) Dementia in Alzheimer's disease with depression (6) Dementia in Alzheimer's disease with delusions (7) Dementia of the Alzheimer's type with early onset with behavioral disturbance (8) Major neurocognitive disorder (9) Major neurocognitive disorder, due to vascular disease, with behavioral disturbance, mild CLEMENTE BUTLER MD Mar 13, 2020 07:33
[2020-03-13] MEDS: glipiZIDE 5 MG TABLET PO SCH (08:27)
[2020-03-13] MEDS: SERTRALINE 50 MG TABLET. PO SCH (08:28)
[2020-03-13] MEDS: ISOSORBIDE MONONITRATE ER 30 MG TAB.ER.24H PO SCH (08:28)
[2020-03-13] MEDS: LOSARTAN 50 MG TABLET. PO SCH (08:28)
[2020-03-13] MEDS: METOPROLOL TART IMMED RELEASE 50 MG TABLET PO SCH ×2 (08:29→20:49)
[2020-03-13] MEDS: QUEtiapine 25 MG TABLET. PO SCH ×2 (08:29→17:02)
[2020-03-13] MEDS: SPIRONOLACTONE 25 MG TABLET PO SCH (08:30)
[2020-03-13] MEDS: POLYETHYLENE GLYCOL 3350 17 GM PACKET. PO SCH (08:30)
[2020-03-13] MEDS: ASPIRIN ENTERIC COATED 81 MG TABLET.DR. PO SCH (08:30)
[2020-03-13] MEDS: MEMANTINE 10 MG TABLET. PO SCH ×2 (08:30→20:48)
--- NOTE | 2020-03-13 11:16 | NUR ---
Patient was compliant with medication taken crushed in pudding. He is pleasantly confused. Patient forgetting that he cannot come out of his room despite there being a sign in his doorway and this nurse is sitting in the hallway to remind him. He is easily redirected verbally to return to his room but forgets and comes out of room again. Nurse moved patients chair to his doorway and he sat there for awhile with his mask on. Patient pulls mask down when speaking. During assessment patient told nurse that he saw his mom and another woman walking outside his window and they were going to "the fun place". He was unable to say anything else about the fun place. Patient did not sleep well last night, he got 2.75 hours according to medical record. He is currently laying in his bed asleep. .
[2020-03-13 16:18] VITALS: BP 97/53
--- NOTE | 2020-03-13 17:38 | NUR ---
Patient has been coming out of his room with his mask below his nose. He is verbally redirectable but requires almost constant reminding. Patient delusional, he told nurse he saw his mother in the parking lot in his white car, he wants to leave and go home with her. There is a white car in the parking lot. Staff encouraged patient to eat his dinner, he did not eat very much. Patient is very concerned that another patient is in the west hallway and has been attempting to get the door open to let him out.
[2020-03-13] MEDS: MIRTAZAPINE 15 MG TABLET PO SCH (20:48)
[2020-03-13] MEDS: ATORVASTATIN CALCIUM 20 MG TABLET PO SCH (20:49)
--- NOTE | 2020-03-13 22:20 | PN ---
DATE: 03/13/2020 SUBJECTIVE: The patient was evaluated on tele rounds, discussed with the staff, reviewed his current medications and labs. Staff reports increased confusion, difficult to redirect and he is able to walk and no falls. OBSERVATION: VITAL SIGNS: Temperature 98, blood pressure 130/75, pulse 66, respirations 14, O2 sat 98%. GENERAL: Slept about 3 hours last night. LABORATORY DATA: The patient's lab reviewed. No significant change from prior levels. MEDICATIONS: The patient's current medications include mirtazapine 15 mg at night, Seroquel 12.5 mg twice a day, Zoloft 50 mg daily, Namenda 10 mg twice a day and also on p.r.n., olanzapine and trazodone. The patient is not having any side effects to medications. ASSESSMENT: Major neurocognitive disorder; Alzheimer's, vascular with delusion and depression; generalized anxiety disorder. PLAN: Continue with the current treatment plan. LENGTH OF STAY: 5 days. YAHIR GLASS MD DR: ORLANDO/natacha JOB#: [id number] / [id number]
--- NOTE | 2020-03-13 23:50 | NUR ---
Pt has been in his room this evening and has been pleasant and cooperative. He is social and his conversation is out of context. He said his mother came to visit him today. Meds were given crushed in pudding and he has had no behaviors tonight.
[2020-03-14] MEDS: traZODone 50 MG TABLET. PO PRN ×2 (00:48→01:46)
[2020-03-14 06:31] VITALS: BP 144/85
[2020-03-14] MEDS: glipiZIDE 5 MG TABLET PO SCH (08:36)
[2020-03-14] MEDS: ISOSORBIDE MONONITRATE ER 30 MG TAB.ER.24H PO SCH (08:36)
[2020-03-14] MEDS: POLYETHYLENE GLYCOL 3350 17 GM PACKET. PO SCH (08:36)
[2020-03-14] MEDS: ASPIRIN ENTERIC COATED 81 MG TABLET.DR. PO SCH (08:37)
[2020-03-14] MEDS: QUEtiapine 25 MG TABLET. PO SCH ×2 (08:37→17:01)
[2020-03-14] MEDS: MEMANTINE 10 MG TABLET. PO SCH ×2 (08:37→20:28)
[2020-03-14] MEDS: LOSARTAN 50 MG TABLET. PO SCH (08:37)
[2020-03-14] MEDS: SERTRALINE 50 MG TABLET. PO SCH (08:37)
[2020-03-14] MEDS: SPIRONOLACTONE 25 MG TABLET PO SCH (08:37)
[2020-03-14] MEDS: METOPROLOL TART IMMED RELEASE 50 MG TABLET PO SCH ×2 (08:38→20:28)
--- NOTE | 2020-03-14 10:42 | NUR ---
Patient is calm and pleasantly confused. He was eating his breakfast with his knife when nurse entered the room, he required assistance with opening his apple sauce and putting jelly on his toast. Patient verbally redirectable but is very forgetful. Patient unable to express himself at times and has difficulty finding the correct words. He is delusional and stated that he "saw his mom last night in the parking lot". Patient compliant with medications taken crushed in pudding. He is pleasant and has not been aggressive or pacing. He slept for 6.25 hours last night.
[2020-03-14 16:08] VITALS: BP 103/53
[2020-03-14] MEDS: ATORVASTATIN CALCIUM 20 MG TABLET PO SCH (20:28)
[2020-03-14] MEDS: MIRTAZAPINE 15 MG TABLET PO SCH (20:28)
--- NOTE | 2020-03-14 22:08 | PN ---
DATE: 03/14/2020 SUBJECTIVE: The patient was evaluated by tele rounds, met with the staff and chart reviewed. He continues to have problems, fluctuating sleep pattern, increased confusion. OBSERVATION: VITAL SIGNS: Temperature 97.4, blood pressure 144/85, pulse 74, respirations 16, O2 sat 98%. GENERAL: Slept about 6 hours last night. MEDICATIONS: The patient's current medications include mirtazapine 15 mg at night, Seroquel 12.5 mg twice a day, Zoloft 50 mg daily, Namenda 10 mg twice a day, p.r.n. olanzapine, and trazodone. He denies of any side effects. LABORATORY DATA: The patient's lab reviewed. ASSESSMENT: 1. Major neurocognitive disorder, Alzheimer's, vascular with the delusion and depression. 2. Generalized anxiety disorder. PLAN: To continue with the treatment. LENGTH OF STAY: 5 days. YAHIR GLASS MD DR: ORLANDO/natacha JOB#: [id number] / [id number]
--- NOTE | 2020-03-15 00:34 | NUR ---
Pt has been in his room tonight. He has been pleasant and cooperative, meds were taken in pudding. He appears to be sleeping well and has had no behaviors tonight.
[2020-03-15 06:40] VITALS: BP 146/86
[2020-03-15] MEDS: METOPROLOL TART IMMED RELEASE 50 MG TABLET PO SCH ×2 (08:49→20:16)
[2020-03-15] MEDS: ASPIRIN ENTERIC COATED 81 MG TABLET.DR. PO SCH (08:49)
[2020-03-15] MEDS: MEMANTINE 10 MG TABLET. PO SCH ×2 (08:58→20:08)
[2020-03-15] MEDS: SERTRALINE 50 MG TABLET. PO SCH (08:58)
[2020-03-15] MEDS: glipiZIDE 5 MG TABLET PO SCH (08:58)
[2020-03-15] MEDS: QUEtiapine 25 MG TABLET. PO SCH ×2 (08:58→17:34)
[2020-03-15] MEDS: LOSARTAN 50 MG TABLET. PO SCH (08:59)
[2020-03-15] MEDS: SPIRONOLACTONE 25 MG TABLET PO SCH (08:59)
[2020-03-15] MEDS: ISOSORBIDE MONONITRATE ER 30 MG TAB.ER.24H PO SCH (08:59)
[2020-03-15] MEDS: POLYETHYLENE GLYCOL 3350 17 GM PACKET. PO SCH (09:00)
--- NOTE | 2020-03-15 11:35 | NUR ---
Patient is disorganized and cannot answer orientation questions. He is oriented to name only. He is calm and pleasantly confused. Patient takes medications crushed in pudding. He requires assistance with set up, opening containers at meals and encouragement to eat as he does not stay on task. He has had no adverse behaviors noted at this time.
[2020-03-15 15:49] VITALS: BP 133/69
[2020-03-15] MEDS: ATORVASTATIN CALCIUM 20 MG TABLET PO SCH (20:08)
[2020-03-15] MEDS: MIRTAZAPINE 15 MG TABLET PO SCH (20:08)
--- NOTE | 2020-03-15 20:42 | PN ---
DATE: 03/15/2020 SUBJECTIVE: The patient was evaluated today via telehealth rounds, discussed with the staff, chart reviewed. The patient has not presented with any major problems. Staff reports no major behavior problems. OBSERVATION: Stable, sleeping better. The patient's affect has improved. MEDICATIONS: The patient's current medications include mirtazapine 15 mg at night, Seroquel 12.5 mg twice a day, Zoloft 50 mg daily, Namenda 10 mg twice a day p.r.n., also on p.r.n. olanzapine and trazodone. He denies of any side effects. LABORATORY DATA: The patient's lab reviewed. ASSESSMENT: 1. Major neurocognitive disorder, Alzheimer's, vascular with delusions and depression. 2. Generalized anxiety disorder. PLAN: To continue with the treatment. LENGTH OF STAY: 5 days. YAHIR GLASS MD DR: OR[place]O/natacha JOB#: [id number] / [id number]
[2020-03-15] MEDS: traZODone 50 MG TABLET. PO PRN (23:12)
[2020-03-16] MEDS: traZODone 50 MG TABLET. PO PRN ×2 (00:19→20:11)
--- NOTE | 2020-03-16 04:12 | NUR ---
Pt has been in his room tonight mainly laying quietly in bed. He has taken his meds crushed in pudding and has been pleasantly confused and cooperative. He has not slept much PRN trazodone and repeat dose has been given but did not seem to increase his sleep hours much. He has had no behaviors tonight.
[2020-03-16 05:48] VITALS: BP 105/55
[2020-03-16] MEDS: ISOSORBIDE MONONITRATE ER 30 MG TAB.ER.24H PO SCH (09:00)
[2020-03-16] MEDS: METOPROLOL TART IMMED RELEASE 50 MG TABLET PO SCH ×2 (09:00→20:12)
--- NOTE | 2020-03-16 09:30 | NUR ---
Covid and rapid done and sent to lab.
[2020-03-16] MEDS: POLYETHYLENE GLYCOL 3350 17 GM PACKET. PO SCH (09:50)
[2020-03-16] MEDS: SPIRONOLACTONE 25 MG TABLET PO SCH (09:51)
[2020-03-16] MEDS: ASPIRIN ENTERIC COATED 81 MG TABLET.DR. PO SCH (09:51)
[2020-03-16] MEDS: LOSARTAN 50 MG TABLET. PO SCH (09:52)
[2020-03-16] MEDS: glipiZIDE 5 MG TABLET PO SCH (09:53)
[2020-03-16] MEDS: SERTRALINE 50 MG TABLET. PO SCH (09:53)
[2020-03-16] MEDS: QUEtiapine 25 MG TABLET. PO SCH ×2 (09:53→16:57)
[2020-03-16] MEDS: MEMANTINE 10 MG TABLET. PO SCH ×2 (09:53→20:10)
--- NOTE | 2020-03-16 12:01 | NUR ---
Pt is disorganized, calm, confused. No agitation, no aggression, no hallucinations, no delusions noted. He is compliant with his medication and assessment.
[2020-03-16 16:04] VITALS: BP 105/43
[2020-03-16] MEDS: MIRTAZAPINE 15 MG TABLET PO SCH (20:11)
[2020-03-16] MEDS: ATORVASTATIN CALCIUM 20 MG TABLET PO SCH (20:12)
[2020-03-16 20:39] VITALS: BP 111/57
--- NOTE | 2020-03-16 22:00 | NUR ---
Patient is in his room on assumption of care, awake in his bed. He is in pleasant spirits. Confused, disorganized. Compliant with assessments and medications given crushed in ice cream. No agitation. Patient denies any pain or discomfort. He appears to be sleeping comfortably at present time.
--- NOTE | 2020-03-16 22:12 | PN ---
DATE: 03/16/2020 SUBJECTIVE: The patient was seen today by telehealth, also met with the staff, and chart reviewed. He continues to be disorganized with his thinking, forgetful, difficult to redirect. OBSERVATION: VITAL SIGNS: Temperature 97.8, blood pressure 105/55, pulse 62, respirations 16, O2 sat 100%. GENERAL: Slept about 4 hours last night. CURRENT MEDICATIONS: Include mirtazapine 15 mg at night, Seroquel 12.5 mg twice a day, Zoloft 50 mg daily, Namenda 10 mg twice a day and also on p.r.n. olanzapine, and trazodone. Denies of any side effects. ASSESSMENT: 1. Major neurocognitive disorder, Alzheimer's, vascular with delusions and depression. 2. Generalized anxiety disorder. PLAN: To continue with the treatment. LENGTH OF STAY: 5 days. YAHIR GLASS MD DR: OR[place]O/natacha JOB#: [id number] / [id number]
[2020-03-17 06:05] VITALS: BP 144/82
[2020-03-17] MEDS: SPIRONOLACTONE 25 MG TABLET PO SCH (07:58)
[2020-03-17] MEDS: QUEtiapine 25 MG TABLET. PO SCH ×2 (07:58→17:12)
[2020-03-17] MEDS: SERTRALINE 50 MG TABLET. PO SCH (07:58)
[2020-03-17] MEDS: ASPIRIN ENTERIC COATED 81 MG TABLET.DR. PO SCH (07:58)
[2020-03-17] MEDS: ISOSORBIDE MONONITRATE ER 30 MG TAB.ER.24H PO SCH (07:58)
[2020-03-17] MEDS: POLYETHYLENE GLYCOL 3350 17 GM PACKET. PO SCH (07:59)
[2020-03-17] MEDS: glipiZIDE 5 MG TABLET PO SCH (07:59)
[2020-03-17] MEDS: LOSARTAN 50 MG TABLET. PO SCH (07:59)
[2020-03-17] MEDS: MEMANTINE 10 MG TABLET. PO SCH ×2 (07:59→20:08)
[2020-03-17] MEDS: METOPROLOL TART IMMED RELEASE 50 MG TABLET PO SCH ×2 (07:59→20:07)
[2020-03-17 16:16] VITALS: BP 107/61
[2020-03-17] MEDS: ATORVASTATIN CALCIUM 20 MG TABLET PO SCH (20:06)
[2020-03-17] MEDS: traZODone 50 MG TABLET. PO PRN (20:07)
[2020-03-17] MEDS: MIRTAZAPINE 15 MG TABLET PO SCH (20:08)
--- NOTE | 2020-03-17 21:12 | NUR ---
Patient is in his room on assumption of care, awake in his bed. He is in pleasant spirits. Confused, disorganized. Compliant with assessments and medications given crushed in pudding. No agitation. Patient denies any pain or discomfort. He appears to be sleeping comfortably at present time.
[2020-03-17 21:25] VITALS: BP 139/71
[2020-03-18] MEDS: traZODone 50 MG TABLET. PO PRN ×3 (00:52→23:21)
[2020-03-18 06:10] VITALS: BP 127/82
--- NOTE | 2020-03-18 09:03 | PN ---
DATE: 03/17/2020 This is the late entry SUBJECTIVE: The patient was seen today by the telehealth rounds, met with the staff, and chart reviewed. Staff reports no major behavior problems. Still confused, disorganized with his thinking and also difficult to redirect. OBSERVATION: VITAL SIGNS: Temperature 97.4, blood pressure 144/82, pulse 62, respirations 16, O2 sat 98%. GENERAL: Slept about 9 hours last night. CURRENT MEDICATIONS: The patient's current medications include mirtazapine 15 mg at night, Seroquel 12.5 mg twice a day, Zoloft 50 mg daily, Namenda 10 mg twice a day, p.r.n. olanzapine, and trazodone. He denies of any side effects to medications. Staff reports no falls. ASSESSMENT: 1. Major neurocognitive disorder, Alzheimer's, vascular with the delusion and depression. 2. Generalized anxiety disorder. PLAN: To continue with the treatment. LENGTH OF STAY: 5-7 days. YAHIR GLASS MD DR: [place]/natacha JOB#: [id number] / [id number]
[2020-03-18] MEDS: SPIRONOLACTONE 25 MG TABLET PO SCH (09:14)
[2020-03-18] MEDS: glipiZIDE 5 MG TABLET PO SCH (09:14)
[2020-03-18] MEDS: LOSARTAN 50 MG TABLET. PO SCH (09:14)
[2020-03-18] MEDS: ASPIRIN ENTERIC COATED 81 MG TABLET.DR. PO SCH (09:14)
[2020-03-18] MEDS: POLYETHYLENE GLYCOL 3350 17 GM PACKET. PO SCH (09:15)
[2020-03-18] MEDS: MEMANTINE 10 MG TABLET. PO SCH ×2 (09:15→20:14)
[2020-03-18] MEDS: METOPROLOL TART IMMED RELEASE 50 MG TABLET PO SCH ×2 (09:15→20:13)
[2020-03-18] MEDS: ISOSORBIDE MONONITRATE ER 30 MG TAB.ER.24H PO SCH (09:15)
[2020-03-18] MEDS: SERTRALINE 50 MG TABLET. PO SCH (09:16)
[2020-03-18] MEDS: QUEtiapine 25 MG TABLET. PO SCH (09:16)
--- NOTE | 2020-03-18 11:19 | NUR ---
He is compliant with his medication crushed in ice cream. He is compliant with his assessment. Pt is disorganized, calm, confused. No agitation, no aggression, no hallucinations, no delusions noted.
--- NOTE | 2020-03-18 12:26 | PN ---
DATE: 03/18/2020 SUBJECTIVE: The patient was evaluated by telehealth rounds, met with the staff, chart reviewed, and covering for Dr. Zuleta. Staff reports that he is restless, difficult to redirect. OBSERVATION: Vital Signs: Temperature 97.7, blood pressure 127/72, pulse 60, respirations 14, O2 sat 98%. Slept only about 2-1/2 hours last night. CURRENT MEDICATIONS: The patient's current medications include mirtazapine 15 mg at night, Seroquel 12.5 mg twice a day, Zoloft 50 mg daily, Namenda 10 mg twice a day , olanzapine, and trazodone p.r.n. He denies of any side effects to medications. Denies of any falls. ASSESSMENT: 1. Major neurocognitive disorder, Alzheimer's, vascular with delusions and depression. 2. Generalized anxiety disorder. PLAN: To continue with the treatment plan. LENGTH OF STAY: 5-7 days. YAHIR GLASS MD DR: [place]O/natacha JOB#: [id number] / [id number]
[2020-03-18 16:25] VITALS: BP 151/67
[2020-03-18 17:46] LABS: BASO % 1 % (0-3); EOS # 0.1 x10^3/uL (0.0-0.7); EOS % 2 % (0-3); HEMATOCRIT 44.7 % (39.0-53.0); HEMOGLOBIN 14.9 g/dL (13.0-17.5); LYMPH # 0.9 x10^3/uL (1.0-4.8); LYMPH % 22 % (24-48); MEAN CORPUSCULAR HEMOGLOBIN 33 pg (25-35); MEAN CORPUSCULAR HGB CONC 33 g/dL (31-37); MEAN CORPUSCULAR VOLUME 98 fL (79-100); MONO # 0.4 x10^3/uL (0.0-1.1); MONO % 8 % (0-9); NEUT # 2.8 x10^3uL (1.8-7.7); NEUT % 67 % (31-73); PLATELET COUNT 109 x10^3/uL (140-400); RED BLOOD COUNT 4.56 x10^6/uL (4.30-5.70); RED CELL DISTRIBUTION WIDTH 14.7 % (11.5-14.5); WHITE BLOOD COUNT 4.2 x10^3/uL (4.0-11.0)
[2020-03-18 17:54] LABS: ALBUMIN 3.9 g/dL (3.4-5.0); ALBUMIN/GLOBULIN RATIO 1.1 (1.0-1.7); CALCIUM 9.7 mg/dL (8.5-10.1); CREATININE 1.6 mg/dL (0.7-1.3); GFR 41.4; POTASSIUM 4.3 mmol/L (3.5-5.1); TOTAL BILIRUBIN 0.6 mg/dL (0.2-1.0); TOTAL PROTEIN 7.6 g/dL (6.4-8.2)
[2020-03-18] MEDS: MIRTAZAPINE 15 MG TABLET PO SCH (20:14)
[2020-03-18] MEDS: QUEtiapine 50 MG TABLET. PO SCH (20:14)
[2020-03-18] MEDS: ATORVASTATIN CALCIUM 20 MG TABLET PO SCH (20:15)
--- NOTE | 2020-03-18 20:53 | NUR ---
Patient is in his room on assumption of care, walking around his room. He is in pleasant spirits. Calm, cooperative and compliant with assessments and medications taken crushed in pudding. During a round, this nurse found patient in his bathroom. He had been incontinent of a large amount of stool and had completely disrobed. Attempted to flush his brief down the toilet. He stated "What the heck? I just popped!" Easily redirectable, assisted to the shower, where he was cooperative with getting cleaned up and ready for bed. No agitation. Patient denies any pain or discomfort. He is laying comfortably in bed, awake, at present time. Will continue to monitor.
[2020-03-19 05:58] VITALS: BP 104/62
[2020-03-19] MEDS: LOSARTAN 50 MG TABLET. PO SCH (08:33)
[2020-03-19] MEDS: SERTRALINE 50 MG TABLET. PO SCH (08:33)
[2020-03-19] MEDS: POLYETHYLENE GLYCOL 3350 17 GM PACKET. PO SCH (08:33)
[2020-03-19] MEDS: METOPROLOL TART IMMED RELEASE 50 MG TABLET PO SCH ×2 (08:34→20:00)
[2020-03-19] MEDS: glipiZIDE 5 MG TABLET PO SCH (08:35)
[2020-03-19] MEDS: SPIRONOLACTONE 25 MG TABLET PO SCH (08:35)
[2020-03-19] MEDS: MEMANTINE 10 MG TABLET. PO SCH ×2 (08:35→20:00)
[2020-03-19] MEDS: ISOSORBIDE MONONITRATE ER 30 MG TAB.ER.24H PO SCH (08:36)
[2020-03-19] MEDS: ASPIRIN ENTERIC COATED 81 MG TABLET.DR. PO SCH (08:36)
--- NOTE | 2020-03-19 11:54 | NUR ---
Patient is pleasantly confused. He is compliant with his medication crushed in pudding. Patient sitting in chair while eating his toast. Nurse assisted patient with opening his milk. Patient is usually unable to answer questions, his answers do not make sense and he has difficulty finding the correct words. Patient does not seem aware of this. Patient is not delusional, anxious or aggressive at this time. Patient did not sleep well overnight, his sleep hours were charted as 1.25. HS nurse reported that he was restless.
[2020-03-19 16:08] VITALS: BP 151/72
[2020-03-19] MEDS: MIRTAZAPINE 15 MG TABLET PO SCH (20:00)
[2020-03-19] MEDS: QUEtiapine 50 MG TABLET. PO SCH (20:00)
[2020-03-19] MEDS: ATORVASTATIN CALCIUM 20 MG TABLET PO SCH (20:00)
--- NOTE | 2020-03-19 20:01 | PN ---
DATE: 03/19/2020 SUBJECTIVE: The patient was seen today on telehealth rounds, met with the staff and chart reviewed. Staff reports that the patient is still having behavior problems, restless, verbally abusive towards staff, difficult to redirect. OBSERVATION: VITAL SIGNS: Stable. GENERAL: Slept only about 1 hour last night. CURRENT MEDICATIONS: Include mirtazapine 15 mg at night, Seroquel 12.5 mg twice a day, Zoloft 50 mg daily, Namenda 10 mg twice a day and also on p.r.n. olanzapine and trazodone. Staff reports no falls. ASSESSMENT: 1. Major neurocognitive disorder, Alzheimer's, vascular with delusions and depression. 2. Generalized anxiety disorder. PLAN: To continue with the treatment. LENGTH OF STAY: 5-7 days. YAHIR GLASS MD DR: ORLANDO/natacha JOB#: [id number] / [id number]
--- NOTE | 2020-03-19 23:10 | NUR ---
Pt has been active in room or johnson tonight. He has been pleasant and cooperative with no behaviors. Meds were taken crushed in ice cream.
[2020-03-20 06:01] VITALS: BP 124/66
[2020-03-20] MEDS: LOSARTAN 50 MG TABLET. PO SCH (09:33)
[2020-03-20] MEDS: POLYETHYLENE GLYCOL 3350 17 GM PACKET. PO SCH (09:33)
[2020-03-20] MEDS: SERTRALINE 50 MG TABLET. PO SCH (09:34)
[2020-03-20] MEDS: glipiZIDE 5 MG TABLET PO SCH (09:34)
[2020-03-20] MEDS: ISOSORBIDE MONONITRATE ER 30 MG TAB.ER.24H PO SCH (09:34)
[2020-03-20] MEDS: SPIRONOLACTONE 25 MG TABLET PO SCH (09:35)
[2020-03-20] MEDS: ASPIRIN ENTERIC COATED 81 MG TABLET.DR. PO SCH (09:35)
[2020-03-20] MEDS: METOPROLOL TART IMMED RELEASE 50 MG TABLET PO SCH ×2 (09:36→20:19)
[2020-03-20] MEDS: MEMANTINE 10 MG TABLET. PO SCH ×2 (09:36→20:19)
--- NOTE | 2020-03-20 11:02 | NUR ---
Patient has been sitting quietly in his room most of the morning. He is interactive when spoken to but is not initiating conversations or interactions. Patient oriented to self only, he is compliant with medications given crushed in pudding. He usually says "yum, that was good" after getting his medications. He has not been combative or pacing, he slept 6 hours last night.
[2020-03-20 15:59] VITALS: BP 120/64
[2020-03-20] MEDS: MIRTAZAPINE 15 MG TABLET PO SCH (20:18)
[2020-03-20] MEDS: QUEtiapine 50 MG TABLET. PO SCH (20:18)
[2020-03-20] MEDS: ATORVASTATIN CALCIUM 20 MG TABLET PO SCH (20:18)
--- NOTE | 2020-03-20 22:12 | PDOC ---
Exam Note: Jamie Note: Please also refer to the separate dictated note~for this date of service dictated separately.~Patient seen individually. Discussed the patient with Nursing staff reviewed the chart.~Reviewed interim history and current functioning. Reviewed vital signs,~Labs/ Radiology~and current medications noted below. Continue current treatment with the changes noted in the dictated addendum note Assessment: Vital Signs/I&O: Vital Signs Date Time Temp Pulse Resp B/P (MAP) Pulse Ox O2 Delivery O2 Flow Rate FiO2 03/20/20 20:19 61 120/64 03/20/20 19:42 97.2 100 03/20/20 15:59 16 03/19/20 16:08 97.0 03/17/20 16:16 Nasal Cannula I & O 03/19/20 03/19/20 03/20/20 15:00 23:00 07:00 Intake Total 600 ml 360 ml Balance 600 ml 360 ml Current Medications: I have reviewed the current psychotropics carefully including drug interactions. Risk benefit ratio favors no change other than as noted in my dictated progress note. Diagnosis: Problems: (1) Impulse control disorder, unspecified (2) Anxiety disorder, unspecified (3) Dementia, vascular, with depression (4) Dementia, vascular, with delusions (5) Dementia in Alzheimer's disease with depression (6) Dementia in Alzheimer's disease with delusions (7) Dementia of the Alzheimer's type with early onset with behavioral disturbance (8) Major neurocognitive disorder, due to vascular disease, with behavioral disturbance, mild CLEMENTE BUTLER MD Mar 20, 2020 22:12
--- NOTE | 2020-03-21 00:34 | NUR ---
Last evening pt was in his room or sitting in the johnson. He took his meds crushed in pudding without difficulty. He has been pleasant and cooperative with no behaviors tonight.
[2020-03-21 06:07] VITALS: BP 112/72
[2020-03-21] MEDS: glipiZIDE 5 MG TABLET PO SCH (08:09)
[2020-03-21] MEDS: SPIRONOLACTONE 25 MG TABLET PO SCH (08:09)
[2020-03-21] MEDS: POLYETHYLENE GLYCOL 3350 17 GM PACKET. PO SCH (08:09)
[2020-03-21] MEDS: ISOSORBIDE MONONITRATE ER 30 MG TAB.ER.24H PO SCH (08:10)
[2020-03-21] MEDS: LOSARTAN 50 MG TABLET. PO SCH (08:10)
[2020-03-21] MEDS: MEMANTINE 10 MG TABLET. PO SCH ×2 (08:11→20:49)
[2020-03-21] MEDS: METOPROLOL TART IMMED RELEASE 50 MG TABLET PO SCH ×2 (08:11→20:49)
[2020-03-21] MEDS: ASPIRIN ENTERIC COATED 81 MG TABLET.DR. PO SCH (08:11)
[2020-03-21] MEDS: SERTRALINE 50 MG TABLET. PO SCH (08:11)
--- NOTE | 2020-03-21 10:22 | PDOC ---
Exam Note: Jamie Note: This note is a late entry for 03/20/2020 covers elements not covered in my initial note. Subjective: The patient was evaluated on telehealth rounds in the evening of 03/20/2020 with [facility] nursing aid. The unit is shut down due to COVID-19 exposure on the unit with no admissions and discharges for now. Dr. Garrido has covered for me for the past several days since I had been on vacation. Reviewed information with Dr. Garrido. Per Valorie GONZALEZ, he slept 6 hours previous night. He remains confused. Review of Systems: No CV, , pulmonary, eye, ENT system symptoms on review. Mental Status Exam: Oriented to himself. Insight and judgment, recent and remote memory, attention and concentration, fund of knowledge consistent with his diagnoses mentioned in my initial note. Laboratory Data: Reviewed. Impression: Major neurocognitive disorder Alzheimer vascular with delusion, depression, behavioral disturbance. Anxiety disorder unspecified. Impulse control disorder unspecified. Plan: No change from initial note. Assessment: Vital Signs/I&O: Vital Signs Date Time Temp Pulse Resp B/P (MAP) Pulse Ox O2 Delivery O2 Flow Rate FiO2 03/21/20 08:11 64 112/72 03/21/20 06:07 97.6 16 99 03/19/20 16:08 97.0 03/17/20 16:16 Nasal Cannula I & O 03/20/20 03/20/20 03/21/20 15:00 23:00 07:00 Intake Total 480 ml 480 ml Balance 480 ml 480 ml Current Medications: I have reviewed the current psychotropics carefully including drug interactions. Risk benefit ratio favors no change other than as noted in my dictated progress note. Diagnosis: Problems: (1) Impulse control disorder, unspecified (2) Anxiety disorder, unspecified (3) Dementia, vascular, with depression (4) Dementia, vascular, with delusions (5) Dementia in Alzheimer's disease with depression (6) Dementia in Alzheimer's disease with delusions (7) Dementia of the Alzheimer's type with early onset with behavioral disturbance (8) Major neurocognitive disorder (9) Major neurocognitive disorder, due to vascular disease, with behavioral disturbance, mild CLEMENTE BUTLER MD Mar 21, 2020 10:21
--- NOTE | 2020-03-21 11:39 | NUR ---
Patient cooperative with assessment and cares. He is disorganized and oriented only to self. He takes his medication crushed in pudding. He has had no adverse behaviors this shift.
[2020-03-21 16:06] VITALS: BP 111/58
[2020-03-21] MEDS: QUEtiapine 50 MG TABLET. PO SCH (20:49)
[2020-03-21] MEDS: ATORVASTATIN CALCIUM 20 MG TABLET PO SCH (20:49)
[2020-03-21] MEDS: MIRTAZAPINE 15 MG TABLET PO SCH (20:49)
--- NOTE | 2020-03-21 21:56 | PDOC ---
Exam Note: Jamie Note: Please also refer to the separate dictated note~for this date of service dictated separately.~Patient seen individually. Discussed the patient with Nursing staff reviewed the chart.~Reviewed interim history and current functioning. Reviewed vital signs,~Labs/ Radiology~and current medications noted below. Continue current treatment with the changes noted in the dictated addendum note Assessment: Vital Signs/I&O: Vital Signs Date Time Temp Pulse Resp B/P (MAP) Pulse Ox O2 Delivery O2 Flow Rate FiO2 03/21/20 20:49 60 111/58 03/21/20 19:47 98.8 99 03/21/20 16:06 18 03/19/20 16:08 97.0 03/17/20 16:16 Nasal Cannula I & O 03/20/20 03/20/20 03/21/20 15:00 23:00 07:00 Intake Total 480 ml 480 ml Balance 480 ml 480 ml Current Medications: I have reviewed the current psychotropics carefully including drug interactions. Risk benefit ratio favors no change other than as noted in my dictated progress note. Diagnosis: Problems: (1) Impulse control disorder, unspecified (2) Anxiety disorder, unspecified (3) Dementia, vascular, with depression (4) Dementia, vascular, with delusions (5) Dementia in Alzheimer's disease with depression (6) Dementia in Alzheimer's disease with delusions (7) Dementia of the Alzheimer's type with early onset with behavioral disturbance (8) Major neurocognitive disorder (9) Major neurocognitive disorder, due to vascular disease, with behavioral disturbance, mild CLEMENTE BUTLER MD Mar 21, 2020 21:56
--- NOTE | 2020-03-22 04:32 | NUR ---
Nursing Note The patient has been calm and cooperative this shift The patient took his medication crushed in pudding and is currently sleeping in his room.
[2020-03-22 05:42] VITALS: BP 124/71
[2020-03-22] MEDS: ISOSORBIDE MONONITRATE ER 30 MG TAB.ER.24H PO SCH (08:10)
[2020-03-22] MEDS: MEMANTINE 10 MG TABLET. PO SCH ×2 (08:10→19:44)
[2020-03-22] MEDS: SERTRALINE 50 MG TABLET. PO SCH (08:10)
[2020-03-22] MEDS: glipiZIDE 5 MG TABLET PO SCH (08:11)
[2020-03-22] MEDS: SPIRONOLACTONE 25 MG TABLET PO SCH (08:11)
[2020-03-22] MEDS: METOPROLOL TART IMMED RELEASE 50 MG TABLET PO SCH ×2 (08:11→19:44)
[2020-03-22] MEDS: POLYETHYLENE GLYCOL 3350 17 GM PACKET. PO SCH (08:12)
[2020-03-22] MEDS: LOSARTAN 50 MG TABLET. PO SCH (08:12)
[2020-03-22] MEDS: ASPIRIN ENTERIC COATED 81 MG TABLET.DR. PO SCH (08:12)
--- NOTE | 2020-03-22 10:57 | NUR ---
Patient in his room sitting on his bed during initial assessment. Calm and cooperative with cares. Medication administered crushed in pudding and taken without difficulty. Patient confused but pleasant. No behaviors noted at this time. Will continue to monitor.
[2020-03-22 16:17] VITALS: BP 124/60
[2020-03-22] MEDS: ATORVASTATIN CALCIUM 20 MG TABLET PO SCH (19:43)
[2020-03-22] MEDS: MIRTAZAPINE 15 MG TABLET PO SCH (19:43)
[2020-03-22] MEDS: QUEtiapine 50 MG TABLET. PO SCH (19:45)
--- NOTE | 2020-03-22 21:53 | PDOC ---
Exam Note: Jamie Note: This note is a late entry for 03/21/2020 covers elements not covered in my initial note. Subjective: The patient was evaluated on telehealth rounds in the evening of 03/21/2020 with Valorie GONZALEZ. The unit is shut down due to COVID-19 exposure on the unit with no admissions and discharges for now. Per Valorie GONZALEZ, he slept 5-3/4 hours previous night. He has been calm, though he is confused, pleasant. I have received note from Keri via email that family want a specific letter for the court. I have reviewed this and further review with the patients history before I am able to authenticate this. Review of Systems: No CV, , pulmonary, eye, ENT system symptoms on review. Mental Status Exam: Oriented to himself. Insight and judgment, recent and remote memory, attention and concentration, fund of knowledge consistent with his diagnoses mentioned in my initial note. Laboratory Data: Reviewed. Impression: Major neurocognitive disorder Alzheimer vascular with delusion, depression, behavioral disturbance. Anxiety disorder unspecified. Impulse control disorder unspecified. Plan: No change from initial note. Assessment: Vital Signs/I&O: Vital Signs Date Time Temp Pulse Resp B/P (MAP) Pulse Ox O2 Delivery O2 Flow Rate FiO2 03/22/20 21:38 97.5 97 03/22/20 19:44 72 124/60 03/22/20 16:17 16 Room Air 03/19/20 16:08 97.0 I & O 0 03/21/20 03/21/20 03/22/20 15:00 23:00 07:00 Intake Total 600 ml 600 ml Balance 600 ml 600 ml Labs: Laboratory Tests Test 03/22/20 07:52 Glucose (Fingerstick) 82 mg/dL (70-99) Current Medications: I have reviewed the current psychotropics carefully including drug interactions. Risk benefit ratio favors no change other than as noted in my dictated progress note. Diagnosis: Problems: (1) Impulse control disorder, unspecified (2) Anxiety disorder, unspecified (3) Dementia, vascular, with depression (4) Dementia, vascular, with delusions (5) Dementia in Alzheimer's disease with depression (6) Dementia in Alzheimer's disease with delusions (7) Dementia of the Alzheimer's type with early onset with behavioral disturbance (8) Major neurocognitive disorder (9) Major neurocognitive disorder, due to vascular disease, with behavioral disturbance, mild CLEMENTE BUTLER MD Mar 22, 2020 21:53
--- NOTE | 2020-03-22 21:59 | PDOC ---
Exam Note: Jamie Note: Please also refer to the separate dictated note~for this date of service dictated separately.~Patient seen individually. Discussed the patient with Nursing staff reviewed the chart.~Reviewed interim history and current functioning. Reviewed vital signs,~Labs/ Radiology~and current medications noted below. Continue current treatment with the changes noted in the dictated addendum note Assessment: Vital Signs/I&O: Vital Signs Date Time Temp Pulse Resp B/P (MAP) Pulse Ox O2 Delivery O2 Flow Rate FiO2 03/22/20 21:38 97.5 97 03/22/20 19:44 72 124/60 03/22/20 16:17 16 Room Air 03/19/20 16:08 97.0 I & O 03/21/20 03/21/20 03/22/20 15:00 23:00 07:00 Intake Total 600 ml 600 ml Balance 600 ml 600 ml Labs: Laboratory Tests Test 03/22/20 07:52 Glucose (Fingerstick) 82 mg/dL (70-99) Current Medications: I have reviewed the current psychotropics carefully including drug interactions. Risk benefit ratio favors no change other than as noted in my dictated progress note. Diagnosis: Problems: (1) Impulse control disorder, unspecified (2) Anxiety disorder, unspecified (3) Dementia, vascular, with depression (4) Dementia, vascular, with delusions (5) Dementia in Alzheimer's disease with depression (6) Dementia in Alzheimer's disease with delusions (7) Dementia of the Alzheimer's type with early onset with behavioral disturbance (8) Major neurocognitive disorder (9) Major neurocognitive disorder, due to vascular disease, with behavioral disturbance, mild CLEMENTE BUTLER MD Mar 22, 2020 21:59
--- NOTE | 2020-03-22 22:37 | NUR ---
Patient is in his room on assumption of care, awake in his bed. He is in pleasant spirits. Confused, disorganized. Compliant with assessments and medications given crushed in chocolate pudding. No agitation. Patient denies any pain or discomfort. He appears to be sleeping comfortably at present time.
[2020-03-23 05:24] VITALS: BP 144/65
[2020-03-23] MEDS: POLYETHYLENE GLYCOL 3350 17 GM PACKET. PO SCH (07:43)
[2020-03-23] MEDS: MEMANTINE 10 MG TABLET. PO SCH ×2 (07:44→21:01)
[2020-03-23] MEDS: ASPIRIN ENTERIC COATED 81 MG TABLET.DR. PO SCH (07:44)
[2020-03-23] MEDS: SPIRONOLACTONE 25 MG TABLET PO SCH (07:44)
[2020-03-23] MEDS: METOPROLOL TART IMMED RELEASE 50 MG TABLET PO SCH ×2 (07:44→21:07)
[2020-03-23] MEDS: LOSARTAN 50 MG TABLET. PO SCH (07:45)
[2020-03-23] MEDS: glipiZIDE 5 MG TABLET PO SCH (07:45)
[2020-03-23] MEDS: SERTRALINE 50 MG TABLET. PO SCH (07:45)
[2020-03-23] MEDS: ISOSORBIDE MONONITRATE ER 30 MG TAB.ER.24H PO SCH (07:45)
[2020-03-23 15:39] VITALS: BP 115/49
--- NOTE | 2020-03-23 15:49 | NUR ---
Pt up adl in room. Out to groups with mask. Has been compliant with meds and cares.
[2020-03-23] MEDS: ATORVASTATIN CALCIUM 20 MG TABLET PO SCH (21:00)
[2020-03-23] MEDS: QUEtiapine 50 MG TABLET. PO SCH (21:01)
[2020-03-23] MEDS: MIRTAZAPINE 15 MG TABLET PO SCH (21:01)
[2020-03-23] MEDS: traZODone 50 MG TABLET. PO PRN (21:01)
--- NOTE | 2020-03-23 22:01 | PDOC ---
Exam Note: Jamie Note: Please also refer to the separate dictated note~for this date of service dictated separately.~Patient seen individually. Discussed the patient with Nursing staff reviewed the chart.~Reviewed interim history and current functioning. Reviewed vital signs,~Labs/ Radiology~and current medications noted below. Continue current treatment with the changes noted in the dictated addendum note Assessment: Vital Signs/I&O: Vital Signs Date Time Temp Pulse Resp B/P (MAP) Pulse Ox O2 Delivery O2 Flow Rate FiO2 03/23/20 21:47 98.1 97 Room Air 03/23/20 21:07 61 143/68 03/23/20 15:39 16 03/19/20 16:08 97.0 I & O 03/22/20 03/22/20 03/23/20 15:00 23:00 07:00 Intake Total 360 ml 320 ml Balance 360 ml 320 ml Current Medications: I have reviewed the current psychotropics carefully including drug interactions. Risk benefit ratio favors no change other than as noted in my dictated progress note. Diagnosis: Problems: (1) Impulse control disorder, unspecified (2) Anxiety disorder, unspecified (3) Dementia, vascular, with depression (4) Dementia, vascular, with delusions (5) Dementia in Alzheimer's disease with depression (6) Dementia in Alzheimer's disease with delusions (7) Dementia of the Alzheimer's type with early onset with behavioral disturbance (8) Major neurocognitive disorder (9) Major neurocognitive disorder, due to vascular disease, with behavioral disturbance, mild CLEMENTE BUTLER MD Mar 23, 2020 22:01
--- NOTE | 2020-03-23 22:16 | NUR ---
Nursing Note The patient was located in his room for his assessment and medication pass. The patient took his medication crushed in ice cream. The patient was disorganized but pleasant during interactions with this nurse. The patient is currently awake in his room.
--- NOTE | 2020-03-23 23:23 | PDOC ---
Exam Note: Jamie Note: This note is a late entry for 03/22/2020 covers elements not covered in my initial note. Subjective: The patient was evaluated on telehealth rounds in the morning of 03/22/2020 with treatment team meeting with Keri (social work supervisor), Naty GONZALEZ and [facility] nursing aid. The unit is still on a lockdown due to COVID-19 exposure with no admissions and discharges. Per Naty GONZALEZ in the evening, he slept 5-1/2 hours previous night. Appetite is 75%. Review of Systems: No CV, , pulmonary, eye, ENT system symptoms on review. Reliability poor. Mental Status Exam: Oriented to himself. Insight and judgment, recent and remote memory, attention and concentration, fund of knowledge consistent with his diagnoses mentioned in my initial note. Laboratory Data: Reviewed. Impression: Major neurocognitive disorder Alzheimer vascular with delusion, depression, behavioral disturbance. Anxiety disorder unspecified. Impulse control disorder unspecified. Plan: No change from initial note. I have reviewed the letter regarding the competency and his diagnoses and I will countersign this and send it back to [facility] for delivery to family. Assessment: Vital Signs/I&O: Vital Signs Date Time Temp Pulse Resp B/P (MAP) Pulse Ox O2 Delivery O2 Flow Rate FiO2 03/23/20 21:47 98.1 97 Room Air 03/23/20 21:07 61 143/68 03/23/20 15:39 16 03/19/20 16:08 97.0 I & O 03/22/20 03/22/20 03/23/20 15:00 23:00 07:00 Intake Total 360 ml 320 ml Balance 360 ml 320 ml Current Medications: I have reviewed the current psychotropics carefully including drug interactions. Risk benefit ratio favors no change other than as noted in my dictated progress note. Diagnosis: Problems: (1) Impulse control disorder, unspecified (2) Anxiety disorder, unspecified (3) Dementia, vascular, with depression (4) Dementia, vascular, with delusions (5) Dementia in Alzheimer's disease with depression (6) Dementia in Alzheimer's disease with delusions (7) Dementia of the Alzheimer's type with early onset with behavioral disturbance (8) Major neurocognitive disorder (9) Major neurocognitive disorder, due to vascular disease, with behavioral disturbance, mild CLEMENTE BUTLER MD Mar 23, 2020 23:23
[2020-03-24] MEDS: traZODone 50 MG TABLET. PO PRN ×2 (00:54→21:12)
[2020-03-24 05:50] VITALS: BP 131/75
[2020-03-24 07:42] LABS: BASO % 0 % (0-3); EOS # 0.1 x10^3/uL (0.0-0.7); EOS % 3 % (0-3); HEMATOCRIT 37.9 % (39.0-53.0); HEMOGLOBIN 12.7 g/dL (13.0-17.5); LYMPH % 28 % (24-48); MEAN CORPUSCULAR HEMOGLOBIN 32 pg (25-35); MEAN CORPUSCULAR HGB CONC 34 g/dL (31-37); MEAN CORPUSCULAR VOLUME 97 fL (79-100); MONO # 0.3 x10^3/uL (0.0-1.1); MONO % 9 % (0-9); NEUT # 2.1 x10^3uL (1.8-7.7); NEUT % 60 % (31-73); PLATELET COUNT 100 x10^3/uL (140-400); RED BLOOD COUNT 3.93 x10^6/uL (4.30-5.70); RED CELL DISTRIBUTION WIDTH 14.7 % (11.5-14.5); WHITE BLOOD COUNT 3.5 x10^3/uL (4.0-11.0)
[2020-03-24] MEDS: ISOSORBIDE MONONITRATE ER 30 MG TAB.ER.24H PO SCH (07:52)
[2020-03-24] MEDS: MEMANTINE 10 MG TABLET. PO SCH ×2 (07:52→21:12)
[2020-03-24] MEDS: POLYETHYLENE GLYCOL 3350 17 GM PACKET. PO SCH (07:52)
[2020-03-24 07:53] LABS: CALCIUM 8.6 mg/dL (8.5-10.1); CREATININE 1.3 mg/dL (0.7-1.3); GFR 52.6; TOTAL BILIRUBIN 0.7 mg/dL (0.2-1.0); TOTAL PROTEIN 6.1 g/dL (6.4-8.2)
[2020-03-24] MEDS: SPIRONOLACTONE 25 MG TABLET PO SCH (07:53)
[2020-03-24] MEDS: ASPIRIN ENTERIC COATED 81 MG TABLET.DR. PO SCH (07:54)
[2020-03-24] MEDS: SERTRALINE 50 MG TABLET. PO SCH (07:54)
[2020-03-24] MEDS: glipiZIDE 5 MG TABLET PO SCH (07:54)
[2020-03-24] MEDS: METOPROLOL TART IMMED RELEASE 50 MG TABLET PO SCH ×2 (07:54→21:13)
[2020-03-24] MEDS: LOSARTAN 50 MG TABLET. PO SCH (07:54)
[2020-03-24 16:04] VITALS: BP 108/56
--- NOTE | 2020-03-24 16:53 | NUR ---
Pt has been quiet and withdrawn to room. Compliant with meds crushed in pudding. Up for meals. Compliant with cares.
[2020-03-24] MEDS: ATORVASTATIN CALCIUM 20 MG TABLET PO SCH (21:12)
[2020-03-24] MEDS: MIRTAZAPINE 15 MG TABLET PO SCH (21:12)
[2020-03-24] MEDS: QUEtiapine 50 MG TABLET. PO SCH (21:12)
--- NOTE | 2020-03-24 21:52 | PDOC ---
Exam Note: Jamie Note: Please also refer to the separate dictated note~for this date of service dictated separately.~Patient seen individually. Discussed the patient with Nursing staff reviewed the chart.~Reviewed interim history and current functioning. Reviewed vital signs,~Labs/ Radiology~and current medications noted below. Continue current treatment with the changes noted in the dictated addendum note Assessment: Vital Signs/I&O: Vital Signs Date Time Temp Pulse Resp B/P (MAP) Pulse Ox O2 Delivery O2 Flow Rate FiO2 03/24/20 21:13 61 122/66 03/24/20 16:04 97.8 16 99 03/23/20 21:47 Room Air 03/19/20 16:08 97.0 I & O 03/23/20 03/23/20 03/24/20 15:00 23:00 07:00 Intake Total 456 ml 695 ml Balance 456 ml 695 ml Labs: Laboratory Tests Test 03/24/20 07:23 White Blood Count 3.5 x10^3/uL (4.0-11.0) L Red Blood Count 3.93 x10^6/uL (4.30-5.70) L Hemoglobin 12.7 g/dL (13.0-17.5) L Hematocrit 37.9 % (39.0-53.0) L Mean Corpuscular Volume 97 fL (79-100) Mean Corpuscular Hemoglobin 32 pg (25-35) Mean Corpuscular Hemoglobin Concent 34 g/dL (31-37) Red Cell Distribution Width 14.7 % (11.5-14.5) H Platelet Count 100 x10^3/uL (140-400) L Neutrophils (%) (Auto) 60 % (31-73) Lymphocytes (%) (Auto) 28 % (24-48) Monocytes (%) (Auto) 9 % (0-9) Eosinophils (%) (Auto) 3 % (0-3) Basophils (%) (Auto) 0 % (0-3) Neutrophils # (Auto) 2.1 x10^3uL (1.8-7.7) Lymphocytes # (Auto) 1.0 x10^3/uL (1.0-4.8) Monocytes # (Auto) 0.3 x10^3/uL (0.0-1.1) Eosinophils # (Auto) 0.1 x10^3/uL (0.0-0.7) Basophils # (Auto) 0.0 x10^3/uL (0.0-0.2) Sodium Level 142 mmol/L (136-145) Potassium Level 4.0 mmol/L (3.5-5.1) Chloride Level 108 mmol/L (98-107) H Carbon Dioxide Level 27 mmol/L (21-32) Anion Gap 7 (6-14) Blood Urea Nitrogen 35 mg/dL (8-26) H Creatinine 1.3 mg/dL (0.7-1.3) Estimated GFR (Cockcroft-Gault) 52.6 BUN/Creatinine Ratio 27 (6-20) H Glucose Level 98 mg/dL (70-99) Calcium Level 8.6 mg/dL (8.5-10.1) Total Bilirubin 0.7 mg/dL (0.2-1.0) Aspartate Amino Transferase (AST) 49 U/L (15-37) H Alanine Aminotransferase (ALT) 68 U/L (16-63) H Alkaline Phosphatase 117 U/L (46-116) H Total Protein 6.1 g/dL (6.4-8.2) L Albumin 3.0 g/dL (3.4-5.0) L Albumin/Globulin Ratio 1.0 (1.0-1.7) Current Medications: I have reviewed the current psychotropics carefully including drug interactions. Risk benefit ratio favors no change other than as noted in my dictated progress note. Diagnosis: Problems: (1) Impulse control disorder, unspecified (2) Anxiety disorder, unspecified (3) Dementia, vascular, with depression (4) Dementia, vascular, with delusions (5) Dementia in Alzheimer's disease with depression (6) Dementia in Alzheimer's disease with delusions (7) Dementia of the Alzheimer's type with early onset with behavioral disturbance (8) Major neurocognitive disorder (9) Major neurocognitive disorder, due to vascular disease, with behavioral disturbance, mild CLEMENTE BUTLER MD Mar 24, 2020 21:52
--- NOTE | 2020-03-24 22:54 | NUR ---
Nursing Note The patient was located in his room laying in bed for his assessment and medication pass. The patient was calm and compliant. The patient took his medication crushed in ice cream. The patient was disorganized but pleasant during interactions. The patient is currently sleeping in his room.
[2020-03-25] MEDS: traZODone 50 MG TABLET. PO PRN ×3 (01:27→23:13)
[2020-03-25 06:28] VITALS: BP 125/67
--- NOTE | 2020-03-25 06:38 | PDOC ---
Exam Note: Jamie Note: This note is a late entry for 03/23/2020 covers elements not covered in my initial note. Subjective: The patient was evaluated on telehealth rounds in the evening of 03/23/2020 with [facility] nursing aid. The unit is shut down due to COVID-19 exposure on the unit with no admissions and discharges per Department of Health directives. Per Alicia RN in the evening, he slept 6-1/2 hours previous night. He did well reasonably previous night. He remains confused, spends time in his room. He forgets using the mask. Nursing staff have to remind him, appropriate during the day. Review of Systems: No CV, , pulmonary, eye, ENT system symptoms on review. Reliability poor. Mental Status Exam: Oriented to himself. He was verbal, interactive, quite confused. Insight and judgment, recent and remote memory, attention and concentration, fund of knowledge consistent with his diagnoses. Laboratory Data: Reviewed. Impression: Major neurocognitive disorder Alzheimer vascular with delusion, depression, behavioral disturbance. Anxiety disorder unspecified. Impulse cont rol disorder unspecified. Plan: No change from initial note. Assessment: Vital Signs/I&O: Vital Signs Date Time Temp Pulse Resp B/P (MAP) Pulse Ox O2 Delivery O2 Flow Rate FiO2 03/25/20 06:28 97.8 62 14 125/67 (86) 99 Room Air 03/19/20 16:08 97.0 I & O 03/24/20 03/24/20 03/25/20 15:00 23:00 07:00 Intake Total 360 ml 360 ml 120 ml Balance 360 ml 360 ml 120 ml Labs: Laboratory Tests Test 03/24/20 07:23 White Blood Count 3.5 x10^3/uL (4.0-11.0) L Red Blood Count 3.93 x10^6/uL (4.30-5.70) L Hemoglobin 12.7 g/dL (13.0-17.5) L Hematocrit 37.9 % (39.0-53.0) L Mean Corpuscular Volume 97 fL (79-100) Mean Corpuscular Hemoglobin 32 pg (25-35) Mean Corpuscular Hemoglobin Concent 34 g/dL (31-37) Red Cell Distribution Width 14.7 % (11.5-14.5) H Platelet Count 100 x10^3/uL (140-400) L Neutrophils (%) (Auto) 60 % (31-73) Lymphocytes (%) (Auto) 28 % (24-48) Monocytes (%) (Auto) 9 % (0-9) Eosinophils (%) (Auto) 3 % (0-3) Basophils (%) (Auto) 0 % (0-3) Neutrophils # (Auto) 2.1 x10^3uL (1.8-7.7) Lymphocytes # (Auto) 1.0 x10^3/uL (1.0-4.8) Monocytes # (Auto) 0.3 x10^3/uL (0.0-1.1) Eosinophils # (Auto) 0.1 x10^3/uL (0.0-0.7) Basophils # (Auto) 0.0 x10^3/uL (0.0-0.2) Sodium Level 142 mmol/L (136-145) Potassium Level 4.0 mmol/L (3.5-5.1) Chloride Level 108 mmol/L (98-107) H Carbon Dioxide Level 27 mmol/L (21-32) Anion Gap 7 (6-14) Blood Urea Nitrogen 35 mg/dL (8-26) H Creatinine 1.3 mg/dL (0.7-1.3) Estimated GFR (Cockcroft-Gault) 52.6 BUN/Creatinine Ratio 27 (6-20) H Glucose Level 98 mg/dL (70-99) Calcium Level 8.6 mg/dL (8.5-10.1) Total Bilirubin 0.7 mg/dL (0.2-1.0) Aspartate Amino Transferase (AST) 49 U/L (15-37) H Alanine Aminotransferase (ALT) 68 U/L (16-63) H Alkaline Phosphatase 117 U/L (46-116) H Total Protein 6.1 g/dL (6.4-8.2) L Albumin 3.0 g/dL (3.4-5.0) L Albumin/Globulin Ratio 1.0 (1.0-1.7) Current Medications: I have reviewed the current psychotropics carefully including drug interactions. Risk benefit ratio favors no change other than as noted in my dictated progress note. Diagnosis: Problems: (1) Impulse control disorder, unspecified (2) Anxiety disorder, unspecified (3) Dementia, vascular, with depression (4) Dementia, vascular, with delusions (5) Dementia in Alzheimer's disease with depression (6) Dementia in Alzheimer's disease with delusions (7) Dementia of the Alzheimer's type with early onset with behavioral dist urbance (8) Major neurocognitive disorder (9) Major neurocognitive disorder, due to vascular disease, with behavioral disturbance, mild CLEMENTE BUTLER MD Mar 25, 2020 06:38
--- NOTE | 2020-03-25 06:48 | PDOC ---
Exam Note: Jamie Note: This note is a late entry for 03/24/2020 covers elements not covered in my initial note. Subjective: The patient was evaluated on telehealth rounds in the evening of 03/24/2020 with Alicia GONZALEZ. The unit is shut down due to COVID-19 exposure on the unit with no admissions and discharges per Department of Health directives. Per Alicia RN in the evening, he slept 5-1/2 hours previous night. He has had some initial insomnia. We will monitor this. Review of Systems: No CV, , pulmonary, eye, ENT system symptoms on review. Mental Status Exam: Oriented to himself. Insight and judgment, recent and remote memory, attention and concentration, fund of knowledge consistent with his diagnoses mentioned in my initial note. Laboratory Data: Reviewed. Impression: Major neurocognitive disorder Alzheimer vascular with delusion, depression, behavioral disturbance. Anxiety disorder unspecified. Impulse control disorder unspecified. Plan: No change from initial note. Assessment: Vital Signs/I&O: Vital Signs Date Time Temp Pulse Resp B/P (MAP) Pulse Ox O2 Delivery O2 Flow Rate FiO2 03/25/20 06:28 97.8 62 14 125/67 (86) 99 Room Air 03/19/20 16:08 97.0 I & O 03/24/20 03/24/20 03/25/20 14:59 22:59 06:59 Intake Total 360 ml 360 ml 120 ml Balance 360 ml 360 ml 120 ml Labs: Laboratory Tests Test 03/24/20 07:23 White Blood Count 3.5 x10^3/uL (4.0-11.0) L Red Blood Count 3.93 x10^6/uL (4.30-5.70) L Hemoglobin 12.7 g/dL (13.0-17.5) L Hematocrit 37.9 % (39.0-53.0) L Mean Corpuscular Volume 97 fL (79-100) Mean Corpuscular Hemoglobin 32 pg (25-35) Mean Corpuscular Hemoglobin Concent 34 g/dL (31-37) Red Cell Distribution Width 14.7 % (11.5-14.5) H Platelet Count 100 x10^3/uL (140-400) L Neutrophils (%) (Auto) 60 % (31-73) Lymphocytes (%) (Auto) 28 % (24-48) Monocytes (%) (Auto) 9 % (0-9) Eosinophils (%) (Auto) 3 % (0-3) Basophils (%) (Auto) 0 % (0-3) Neutrophils # (Auto) 2.1 x10^3uL (1.8-7.7) Lymphocytes # (Auto) 1.0 x10^3/uL (1.0-4.8) Monocytes # (Auto) 0.3 x10^3/uL (0.0-1.1) Eosinophils # (Auto) 0.1 x10^3/uL (0.0-0.7) Basophils # (Auto) 0.0 x10^3/uL (0.0-0.2) Sodium Level 142 mmol/L (136-145) Potassium Level 4.0 mmol/L (3.5-5.1) Chloride Level 108 mmol/L (98-107) H Carbon Dioxide Level 27 mmol/L (21-32) Anion Gap 7 (6-14) Blood Urea Nitrogen 35 mg/dL (8-26) H Creatinine 1.3 mg/dL (0.7-1.3) Estimated GFR (Cockcroft-Gault) 52.6 BUN/Creatinine Ratio 27 (6-20) H Glucose Level 98 mg/dL (70-99) Calcium Level 8.6 mg/dL (8.5-10.1) Total Bilirubin 0.7 mg/dL (0.2-1.0) Aspartate Amino Transferase (AST) 49 U/L (15-37) H Alanine Aminotransferase (ALT) 68 U/L (16-63) H Alkaline Phosphatase 117 U/L (46-116) H Total Protein 6.1 g/dL (6.4-8.2) L Albumin 3.0 g/dL (3.4-5.0) L Albumin/Globulin Ratio 1.0 (1.0-1.7) Current Medications: I have reviewed the current psychotropics carefully including drug interactions. Risk benefit ratio favors no change other than as noted in my dictated progress note. Diagnosis: Problems: (1) Impulse control disorder, unspecified (2) Anxiety disorder, unspecified (3) Dementia, vascular, with depression (4) Dementia, vascular, with delusions (5) Dementia in Alzheimer's disease with depression (6) Dementia in Alzheimer's disease with delusions (7) Dementia of the Alzheimer's type with early onset with behavioral disturbance (8) Major neurocognitive disorder (9) Major neurocognitive disorder, due to vascular disease, with behavioral disturbance, mild CLEMENTE BUTLER MD Mar 25, 2020 06:48
--- NOTE | 2020-03-25 07:00 | NUR ---
Nursing Note The patient received PRN Trazodone@HS per PRN order. The patient was restless later in the night and received the repeat PRN Trazodone@0127 per PRN order.
[2020-03-25] MEDS: SERTRALINE 50 MG TABLET. PO SCH (08:09)
[2020-03-25] MEDS: POLYETHYLENE GLYCOL 3350 17 GM PACKET. PO SCH (08:09)
[2020-03-25] MEDS: ASPIRIN ENTERIC COATED 81 MG TABLET.DR. PO SCH (08:10)
[2020-03-25] MEDS: MEMANTINE 10 MG TABLET. PO SCH ×2 (08:10→20:15)
[2020-03-25] MEDS: glipiZIDE 5 MG TABLET PO SCH (08:10)
[2020-03-25] MEDS: METOPROLOL TART IMMED RELEASE 50 MG TABLET PO SCH ×2 (08:10→20:15)
[2020-03-25] MEDS: ISOSORBIDE MONONITRATE ER 30 MG TAB.ER.24H PO SCH (08:11)
[2020-03-25] MEDS: SPIRONOLACTONE 25 MG TABLET PO SCH (08:11)
[2020-03-25] MEDS: LOSARTAN 50 MG TABLET. PO SCH (08:12)
[2020-03-25] MEDS ORDERED: ACET325T21 PO (11:17)
[2020-03-25] MEDS ORDERED: MAG355OR12 PO (11:18)
[2020-03-25] MEDS ORDERED: MAGN24003 PO (11:18)
[2020-03-25] MEDS ORDERED: MIRT15TA PO (11:19)
[2020-03-25] MEDS ORDERED: OLAN5TAB99 PO (11:20)
[2020-03-25] MEDS ORDERED: POLY17PO5 PO (11:21)
[2020-03-25] MEDS ORDERED: QUET50TA5 PO (11:21)
[2020-03-25] MEDS ORDERED: SERT50TA PO (11:23)
[2020-03-25] MEDS ORDERED: SENN8.8S5 PO (11:23)
[2020-03-25] MEDS ORDERED: TRAZ-120 PO ×2 (11:24→11:25)
[2020-03-25 16:03] VITALS: BP 94/59
--- NOTE | 2020-03-25 16:28 | NUR ---
Pt up in room till afternoon. Out in halls with mask. Visiting with staff. Has been compliant with meds and cares. Pleasantly confused.
[2020-03-25 19:24] VITALS: BP 110/59
[2020-03-25] MEDS: QUEtiapine 50 MG TABLET. PO SCH (20:14)
[2020-03-25] MEDS: ATORVASTATIN CALCIUM 20 MG TABLET PO SCH (20:14)
[2020-03-25] MEDS: MIRTAZAPINE 15 MG TABLET PO SCH (20:15)
--- NOTE | 2020-03-25 21:55 | PDOC ---
Exam Note: Jamie Note: Please also refer to the separate dictated note~for this date of service dictated separately.~Patient seen individually. Discussed the patient with Nursing staff reviewed the chart.~Reviewed interim history and current functioning. Reviewed vital signs,~Labs/ Radiology~and current medications noted below. Continue current treatment with the changes noted in the dictated addendum note Assessment: Vital Signs/I&O: Vital Signs Date Time Temp Pulse Resp B/P (MAP) Pulse Ox O2 Delivery O2 Flow Rate FiO2 03/25/20 20:23 98.2 98 03/25/20 20:15 62 110/59 03/25/20 16:03 20 03/25/20 06:28 Room Air 03/19/20 16:08 97.0 I & O 03/24/20 03/24/20 03/25/20 15:00 23:00 07:00 Intake Total 360 ml 360 ml 120 ml Balance 360 ml 360 ml 120 ml Labs: Laboratory Tests Test 03/25/20 07:59 Glucose (Fingerstick) 114 mg/dL (70-99) H Current Medications: I have reviewed the current psychotropics carefully including drug interactions. Risk benefit ratio favors no change other than as noted in my dictated progress note. Diagnosis: Problems: (1) Impulse control disorder, unspecified (2) Anxiety disorder, unspecified (3) Dementia, vascular, with depression (4) Dementia, vascular, with delusions (5) Dementia in Alzheimer's disease with depression (6) Dementia in Alzheimer's disease with delusions (7) Dementia of the Alzheimer's type with early onset with behavioral disturbanc e (8) Major neurocognitive disorder (9) Major neurocognitive disorder, due to vascular disease, with behavioral disturbance, mild CLEMENTE BUTLER MD Mar 25, 2020 21:55
--- NOTE | 2020-03-25 22:25 | NUR ---
Pt restless in his room, fidgeting with his bed linens and items on his bedside table. Compliant with crushed medications. Pleasantly confused. PRN Trazodone administered w HS medications.
[2020-03-26 05:47] VITALS: BP 122/65
[2020-03-26] MEDS: POLYETHYLENE GLYCOL 3350 17 GM PACKET. PO SCH (08:17)
[2020-03-26] MEDS: SERTRALINE 50 MG TABLET. PO SCH (08:18)
[2020-03-26] MEDS: ISOSORBIDE MONONITRATE ER 30 MG TAB.ER.24H PO SCH (08:18)
[2020-03-26] MEDS: MEMANTINE 10 MG TABLET. PO SCH ×2 (08:18→20:03)
[2020-03-26] MEDS: LOSARTAN 50 MG TABLET. PO SCH (08:18)
[2020-03-26] MEDS: METOPROLOL TART IMMED RELEASE 50 MG TABLET PO SCH ×2 (08:18→20:03)
[2020-03-26] MEDS: glipiZIDE 5 MG TABLET PO SCH (08:19)
[2020-03-26] MEDS: ASPIRIN ENTERIC COATED 81 MG TABLET.DR. PO SCH (08:19)
[2020-03-26] MEDS: SPIRONOLACTONE 25 MG TABLET PO SCH (08:20)
[2020-03-26 18:38] VITALS: BP 111/53
[2020-03-26] MEDS: MIRTAZAPINE 15 MG TABLET PO SCH (20:03)
[2020-03-26] MEDS: QUEtiapine 50 MG TABLET. PO SCH (20:03)
[2020-03-26] MEDS: ATORVASTATIN CALCIUM 20 MG TABLET PO SCH (20:03)
[2020-03-26] MEDS: traZODone 50 MG TABLET. PO PRN ×2 (20:04→22:05)
--- NOTE | 2020-03-26 21:38 | NUR ---
Pt pleasantly confused. Restless, wandering in and out of his room. Compliant with wearing his mask. Compliant with crushed medications. PRN Trazodone administered with HS medications.
[2020-03-26] MEDS: MELATONIN 3 MG TABLET PO SCH (22:05)
--- NOTE | 2020-03-26 22:16 | PDOC ---
Exam Note: Jamie Note: Please also refer to the separate dictated note~for this date of service dictated separately.~Patient seen individually. Discussed the patient with Nursing staff reviewed the chart.~Reviewed interim history and current functioning. Reviewed vital signs,~Labs/ Radiology~and current medications noted below. Continue current treatment with the changes noted in the dictated addendum note Assessment: Vital Signs/I&O: Vital Signs Date Time Temp Pulse Resp B/P (MAP) Pulse Ox O2 Delivery O2 Flow Rate FiO2 03/26/20 21:33 98.2 99 03/26/20 20:03 60 111/53 03/26/20 18:38 19 03/25/20 06:28 Room Air I & O 03/25/20 03/25/20 03/26/20 14:59 22:59 06:59 Intake Total 200 ml 560 ml Balance 200 ml 560 ml Labs: Laboratory Tests Test 03/26/20 08:18 Glucose (Fingerstick) 102 mg/dL (70-99) H Current Medications: Meds: Current Medications Medications (Trade) Dose Ordered Sig/Neto Route PRN Reason Start Time Stop Time Status Last Admin Dose Admin Melatonin (Melatonin) 3 mg QHS PO 03/26/20 22:00 03/26/20 22:05 I have reviewed the current psychotropics carefully including drug interactions. Risk benefit ratio favors no change other than as noted in my dictated progress note. Diagnosis: Problems: (1) Impulse control disorder, unspecified (2) Anxiety disorder, unspecified (3) Dementia, vascular, with depression (4) Dementia, vascular, with delusions (5) Dementia in Alzheimer's disease with depression (6) Dementia in Alzheimer's disease with delusions (7) Dementia of the Alzheimer's type with early onset with behavioral disturbance (8) Major neurocognitive disorder (9) Major neurocognitive disorder, due to vascular disease, with behavioral disturbance, mild CLEMENTE BUTLER MD Mar 26, 2020 22:16
[2020-03-27 05:47] VITALS: BP 126/69
[2020-03-27] MEDS: POLYETHYLENE GLYCOL 3350 17 GM PACKET. PO SCH (08:57)
[2020-03-27] MEDS: MEMANTINE 10 MG TABLET. PO SCH ×2 (08:58→20:42)
[2020-03-27] MEDS: ISOSORBIDE MONONITRATE ER 30 MG TAB.ER.24H PO SCH (08:58)
[2020-03-27] MEDS: SERTRALINE 50 MG TABLET. PO SCH (08:58)
[2020-03-27] MEDS: LOSARTAN 50 MG TABLET. PO SCH (08:58)
[2020-03-27] MEDS: METOPROLOL TART IMMED RELEASE 50 MG TABLET PO SCH ×2 (08:59→20:43)
[2020-03-27] MEDS: ASPIRIN ENTERIC COATED 81 MG TABLET.DR. PO SCH (09:00)
[2020-03-27] MEDS: SPIRONOLACTONE 25 MG TABLET PO SCH (09:00)
[2020-03-27] MEDS: glipiZIDE 5 MG TABLET PO SCH (09:00)
--- NOTE | 2020-03-27 12:30 | NUR ---
Patient swabbed for COVID send out test.
--- NOTE | 2020-03-27 13:08 | NUR ---
Patient in his room lying calmly in his bed. He was cooperative with medications given crushed and hidden in ice cream. This morning patient was very resistive in the shower, he was hitting himself and attempting to hit staff. He has been cooperative and pleasant the rest of the day. He remains oriented to self only. Patient is incontinent of urine but has not urinated anywhere inappropriately this shift.
[2020-03-27 15:37] VITALS: BP 107/63
--- NOTE | 2020-03-27 16:30 | NUR ---
DARYA has been emailing with pt dtr, Mary, and gave her an update on the discharge plan. Mary also reports that their government service executive is going to talk to a couple of people to see if they will reconsider pt for placement. DARYA informed Mary that DARYA will send a referral to [facility] and was told to check into [facility] in [place]. Mary and DARYA will follow up with one another.
[2020-03-27 20:42] VITALS: BP 112/69
[2020-03-27] MEDS: QUEtiapine 50 MG TABLET. PO SCH (20:42)
[2020-03-27] MEDS: MIRTAZAPINE 15 MG TABLET PO SCH (20:42)
[2020-03-27] MEDS: MELATONIN 3 MG TABLET PO SCH (20:42)
[2020-03-27] MEDS: traZODone 50 MG TABLET. PO PRN (20:43)
[2020-03-27] MEDS: ATORVASTATIN CALCIUM 20 MG TABLET PO SCH (20:43)
--- NOTE | 2020-03-27 21:57 | PDOC ---
Exam Note: Jamie Note: Please also refer to the separate dictated note~for this date of service dictated separately.~Patient seen individually. Discussed the patient with Nursing staff reviewed the chart.~Reviewed interim history and current functioning. Reviewed vital signs,~Labs/ Radiology~and current medications noted below. Continue current treatment with the changes noted in the dictated addendum note Assessment: Vital Signs/I&O: Vital Signs Date Time Temp Pulse Resp B/P (MAP) Pulse Ox O2 Delivery O2 Flow Rate FiO2 03/27/20 20:43 60 112/69 03/27/20 19:57 98.1 98 03/27/20 15:37 18 Room Air I & O 03/26/20 03/26/20 03/27/20 15:00 23:00 07:00 Intake Total 354 ml 460 ml Balance 354 ml 460 ml Labs: Laboratory Tests Test 03/27/20 07:35 Glucose (Fingerstick) 99 mg/dL (70-99) Current Medications: Meds: Current Medications Medications (Trade) Dose Ordered Sig/Neto Route PRN Reason Start Time Stop Time Status Last Admin Dose Admin Melatonin (Melatonin) 3 mg QHS PO 03/26/20 22:00 03/27/20 20:42 I have reviewed the current psychotropics carefully including drug interactions. Risk benefit ratio favors no change other than as noted in my dictated progress note. Diagnosis: Problems: (1) Impulse control disorder, unspecified (2) Anxiety disorder, unspecified (3) Dementia, vascular, with depression (4) Dementia, vascular, with delusions (5) Dementia in Alzheimer's disease with depression (6) Dementia in Alzheimer's disease with delusions (7) Dementia of the Alzheimer's type with early onset with behavioral disturbance (8) Major neurocognitive disorder (9) Major neurocognitive disorder, due to vascular disease, with behavioral disturbance, mild CLEMENTE BUTLER MD Mar 27, 2020 21:57
--- NOTE | 2020-03-27 22:38 | NUR ---
Pt located in his room this evening. Pleasantly confused. Compliant with crushed medications. PRN Trazodone administered with HS medications.
[2020-03-28 05:47] VITALS: BP 122/72
[2020-03-28] MEDS: ISOSORBIDE MONONITRATE ER 30 MG TAB.ER.24H PO SCH (09:15)
[2020-03-28] MEDS: SERTRALINE 50 MG TABLET. PO SCH (09:16)
[2020-03-28] MEDS: LOSARTAN 50 MG TABLET. PO SCH (09:16)
[2020-03-28] MEDS: METOPROLOL TART IMMED RELEASE 50 MG TABLET PO SCH ×2 (09:16→20:07)
[2020-03-28] MEDS: SPIRONOLACTONE 25 MG TABLET PO SCH (09:17)
[2020-03-28] MEDS: POLYETHYLENE GLYCOL 3350 17 GM PACKET. PO SCH (09:17)
[2020-03-28] MEDS: MEMANTINE 10 MG TABLET. PO SCH ×2 (09:17→20:07)
[2020-03-28] MEDS: glipiZIDE 5 MG TABLET PO SCH (09:17)
[2020-03-28] MEDS: ASPIRIN ENTERIC COATED 81 MG TABLET.DR. PO SCH (09:17)
--- NOTE | 2020-03-28 10:49 | NUR ---
SW received call from Mary, pt daughter, who reports that they are attempting to get pt into a [facility], [facility] there in [place]. She was supposed to find out pt financials and was told to check back next week. The divorce papers have been signed and the family is still working with the certified pharmacist assistant to get the charges for arrest dropped. DARYA will follow up on the places that she has sent referrals to see if there have been decisions made yet.
--- NOTE | 2020-03-28 11:41 | PDOC ---
Exam Note: Jamie Note: This note is a late entry for 03/25/2020 covers elements not covered in my initial note. Subjective: The patient was evaluated on telehealth rounds in the evening of 03/25/2020 due to COVID-19 restrictions on the unit with no admissions and discharges. Per Alicia RN in the evening, he slept 5-1/2 hours previous night. The patient received trazodone x2 last night. He got agitated at times, had to be in the quiet hallway. As I questioned him individually he was unaware of where he was, felt he was at a hotel getting some rest. Review of Systems: No CV, , pulmonary, eye, ENT system symptoms on review. Mental Status Exam: Oriented to himself. He is very appropriate, pleasant. In sight and judgment, recent and remote memory, attention and concentration, fund of knowledge consistent with his diagnoses mentioned in my initial note. Laboratory Data: Reviewed. Impression: Major neurocognitive disorder Alzheimer vascular with delusion, depression, behavioral disturbance. Anxiety disorder unspecified. Impulse control disorder unspecified. Plan: No change from initial note. Assessment: Vital Signs/I&O: Vital Signs Date Time Temp Pulse Resp B/P (MAP) Pulse Ox O2 Delivery O2 Flow Rate FiO2 03/28/20 09:16 60 122/72 03/28/20 05:47 97.9 18 98 03/27/20 15:37 Room Air I & O 03/27/20 03/27/20 03/28/20 15:00 23:00 07:00 Intake Total 840 ml 460 ml Balance 840 ml 460 ml Labs: Laboratory Tests Test 03/28/20 07:37 Glucose (Fingerstick) 92 mg/dL (70-99) Current Medications: I have reviewed the current psychotropics carefully including drug interactions. Risk benefit ratio favors no change other than as noted in my dictated progress note. Diagnosis: Problems: (1) Impulse control disorder, unspecified (2) Anxiety disorder, unspecified (3) Dementia, vascular, with depression (4) Dementia, vascular, with delusions (5) Dementia in Alzheimer's disease with depression (6) Dementia in Alzheimer's disease with delusions (7) Dementia of the Alzheimer's type with early onset with behavioral dis turbance (8) Major neurocognitive disorder (9) Major neurocognitive disorder, due to vascular disease, with behavioral disturbance, mild LUKE,MAN M MD Mar 28, 2020 11:41
--- NOTE | 2020-03-28 11:49 | PDOC ---
Exam Note: Jamie Note: This note is a late entry for 03/26/2020 covers elements not covered in my initial note. Subjective: The patient was reviewed on telehealth rounds in the evening of 03/26/2020 with Mercedes GONZALEZ due to COVID-19 restrictions on the unit with no admissions and discharges. He slept 2-3/4 hours previous night. He received trazodone 50 mg, may repeat x1 and we will add melatonin 3 mg h.s. He also remains on Remeron 15 mg h.s. Review of Systems: No CV, , pulmonary, eye, ENT system symptoms on review. Mental Status Exam: Oriented to himself. Insight and judgment, recent and remote memory, attention and concentration, fund of knowledge consistent with his diagnoses mentioned in my initial note. Laboratory Data: Reviewed. Impression: Major neurocognitive disorder Alzheimer vascular with delusion, depression, behavioral disturbance. Anxiety disorder unspecified. Impulse control disorder unspecified. Plan: No change from initial note. Assessment: Vital Signs/I&O: Vital Signs Date Time Temp Pulse Resp B/P (MAP) Pulse Ox O2 Delivery O2 Flow Rate FiO2 03/28/20 09:16 60 122/72 03/28/20 05:47 97.9 18 98 03/27/20 15:37 Room Air I & O 03/27/20 03/27/20 03/28/20 15:00 23:00 07:00 Intake Total 840 ml 460 ml Balance 840 ml 460 ml Labs: Laboratory Tests Test 03/28/20 07:37 Glucose (Fingerstick) 92 mg/dL (70-99) Current Medications: I have reviewed the current psychotropics carefully including drug interactions. Risk benefit ratio favors no change other than as noted in my dictated progress note. Diagnosis: Problems: (1) Impulse control disorder, unspecified (2) Anxiety disorder, unspecified (3) Dementia, vascular, with depression (4) Dementia, vascular, with delusions (5) Dementia in Alzheimer's disease with depression (6) Dementia in Alzheimer's disease with delusions (7) Dementia of the Alzheimer's type with early onset with behavioral disturbance (8) Major neurocognitive disorder (9) Major neurocognitive disorder, due to vascular disease, with behavioral disturbance, mild CLEMENTE BUTLER MD Mar 28, 2020 11:49
--- NOTE | 2020-03-28 11:57 | PDOC ---
Exam Note: Jamie Note: This note is a late entry for 03/27/2020 covers elements not covered in my initial note. Subjective: The patient was reviewed on telehealth rounds in the evening of 03/27/2020 with Alejandra GONZALEZ due to COVID-19 restrictions on the unit with no admissions and discharges. Per Valorie GONZALEZ in the evening, she slept 5-3/4 hours previous night. She is somewhat resistive with cares in the morning. She was hitting out at staff, did well in the evening. We have added melatonin. She slept a little better with this. Review of Systems: No CV, , pulmonary, eye, ENT system symptoms on review. Reliability poor. Mental Status Exam: Oriented to himself. She is very pleasant, verbal, interactive as I met with him. Insight and judgment, recent and remote memory, attention and concentration, fund of knowledge consistent with his diagnoses mentioned in my initial note. Laboratory Data: Reviewed. Impression: Major neurocognitive disorder Alzheimer vascular with delusion, depression, behavioral disturbance. Anxiety disorder unspecified. Impulse control disorder unspecified. Plan: No change from initial note. Assessment: Vital Signs/I&O: Vital Signs Date Time Temp Pulse Resp B/P (MAP) Pulse Ox O2 Delivery O2 Flow Rate FiO2 03/28/20 09:16 60 122/72 03/28/20 05:47 97.9 18 98 03/27/20 15:37 Room Air I & O 03/27/20 03/27/20 03/28/20 15:00 23:00 07:00 Intake Total 840 ml 460 ml Balance 840 ml 460 ml Labs: Laboratory Tests Test 03/28/20 07:37 Glucose (Fingerstick) 92 mg/dL (70-99) Current Medications: I have reviewed the current psychotropics carefully including drug interactions. Risk benefit ratio favors no change other than as noted in my dictated progress note. Diagnosis: Problems: (1) Impulse control disorder, unspecified (2) Anxiety disorder, unspecified (3) Dementia, vascular, with depression (4) Dementia, vascular, with delusions (5) Dementia in Alzheimer's disease with depression (6) Dementia in Alzheimer's disease with delusions (7) Dementia of the Alzheimer's type with early onset with behavioral disturbance (8) Major neurocognitive disorder (9) Major neurocognitive disorder, due to vascular disease, with behavioral disturbance, mild LUKE,MAN M MD Mar 28, 2020 11:57
[2020-03-28 15:27] VITALS: BP 104/58
[2020-03-28] MEDS: QUEtiapine 50 MG TABLET. PO SCH (20:06)
[2020-03-28] MEDS: MIRTAZAPINE 15 MG TABLET PO SCH (20:06)
[2020-03-28] MEDS: ATORVASTATIN CALCIUM 20 MG TABLET PO SCH (20:06)
[2020-03-28] MEDS: MELATONIN 3 MG TABLET PO SCH (20:06)
--- NOTE | 2020-03-28 21:53 | PDOC ---
Exam Note: Jamie Note: Please also refer to the separate dictated note~for this date of service dictated separately.~Patient seen individually. Discussed the patient with Nursing staff reviewed the chart.~Reviewed interim history and current functioning. Reviewed vital signs,~Labs/ Radiology~and current medications noted below. Continue current treatment with the changes noted in the dictated addendum note Assessment: Vital Signs/I&O: Vital Signs Date Time Temp Pulse Resp B/P (MAP) Pulse Ox O2 Delivery O2 Flow Rate FiO2 03/28/20 21:01 98.3 97 03/28/20 20:07 60 104/58 03/28/20 15:27 17 Room Air I & O 03/27/20 03/27/20 03/28/20 14:59 22:59 06:59 Intake Total 840 ml 460 ml Balance 840 ml 460 ml Labs: Laboratory Tests Test 03/28/20 07:37 Glucose (Fingerstick) 92 mg/dL (70-99) Current Medications: I have reviewed the current psychotropics carefully including drug interactions. Risk benefit ratio favors no change other than as noted in my dictated progress note. Diagnosis: Problems: (1) Impulse control disorder, unspecified (2) Anxiety disorder, unspecified (3) Dementia, vascular, with depression (4) Dementia, vascular, with delusions (5) Dementia in Alzheimer's disease with depression (6) Dementia in Alzheimer's disease with delusions (7) Dementia of the Alzheimer's type with early onset with behavioral disturbance (8) Major neurocognitive disorder (9) Major neurocognitive disorder, due to vascular disease, with behavioral disturbance, mild CLEMENTE BUTLER MD Mar 28, 2020 21:53
--- NOTE | 2020-03-28 22:49 | NUR ---
Nursing Note Pleasant calm and cooperative. Denies complaints. No behaviors.
[2020-03-29] MEDS: POLYETHYLENE GLYCOL 3350 17 GM PACKET. PO SCH (04:35)
[2020-03-29] MEDS: SERTRALINE 50 MG TABLET. PO SCH (04:41)
[2020-03-29] MEDS: glipiZIDE 5 MG TABLET PO SCH (04:41)
[2020-03-29] MEDS: SPIRONOLACTONE 25 MG TABLET PO SCH (04:42)
[2020-03-29] MEDS: MEMANTINE 10 MG TABLET. PO SCH ×2 (04:42→20:10)
[2020-03-29] MEDS: ISOSORBIDE MONONITRATE ER 30 MG TAB.ER.24H PO SCH (04:42)
[2020-03-29] MEDS: ASPIRIN ENTERIC COATED 81 MG TABLET.DR. PO SCH (04:43)
[2020-03-29] MEDS: LOSARTAN 50 MG TABLET. PO SCH (05:03)
[2020-03-29 05:04] VITALS: BP 156/75
[2020-03-29] MEDS: METOPROLOL TART IMMED RELEASE 50 MG TABLET PO SCH ×2 (05:04→20:16)
--- NOTE | 2020-03-29 07:33 | NUR ---
Nursing note Pt pleasant and cooperative, is confused and has difficulty with tasks. Unable to comprehend verbal commands but is very calm.
--- NOTE | 2020-03-29 10:53 | NUR ---
DARYA returned call to Mary about her question re: the care assessment. DARYA informed Mary that SW is able to complete the assessment versus having the dept of aging complete one through Zoom. DARYA informed Mary that [facility] has pushed the needs for a care assessment completion until May 02. Meaning the facility can accept without and complete the assessment at placement once he gets there. Mary will call Geraldine at [facility] to see if DARYA will be okay to complete the care assessment and get back to DARYA.
--- NOTE | 2020-03-29 16:00 | NUR ---
Assumed care of patient at 1100. Patient has spent most of this shift in his room. He alternates between laying in his bed and sitting in the chair. Patient received a call from his daughter, but was unable to recall that she had called when nurse asked about the call. Patient is calm and pleasant. He is cooperative with cares and in the shower this afternoon. Patient has shown no s/s pain and denies when asked. Patient oriented to self only, has a hard time finding the correct words to express answers to questions.
[2020-03-29 16:30] VITALS: BP 128/66
[2020-03-29] MEDS: traZODone 50 MG TABLET. PO PRN ×2 (20:09→22:52)
[2020-03-29] MEDS: QUEtiapine 50 MG TABLET. PO SCH (20:09)
[2020-03-29] MEDS: MELATONIN 3 MG TABLET PO SCH (20:10)
[2020-03-29] MEDS: ATORVASTATIN CALCIUM 20 MG TABLET PO SCH (20:10)
[2020-03-29] MEDS: MIRTAZAPINE 15 MG TABLET PO SCH (20:10)
--- NOTE | 2020-03-29 21:09 | NUR ---
Patient came into hallway with his mask on his chin. When nurse asked him to please put his mask on over his nose and mouth he stated he did not know where the mask was. Nurse assisted patient to pull mask up from his chin, patient smiled and joked about mask. Patient in good spirits tonight. Patient takes his medications crushed in pudding or ice cream r/t the fact that he will chew medications if given them whole. He is calm, pleasant and cooperative, oriented only to his self and has difficulty finding words when talking. Patient does not seem to be bothered by or aware of this. No adverse behaviors noted this shift.
--- NOTE | 2020-03-29 21:53 | PDOC ---
Exam Note: Jamie Note: Please also refer to the separate dictated note~for this date of service dictated separately.~Patient seen individually. Discussed the patient with Nursing staff reviewed the chart.~Reviewed interim history and current functioning. Reviewed vital signs,~Labs/ Radiology~and current medications noted below. Continue current treatment with the changes noted in the dictated addendum note Assessment: Vital Signs/I&O: Vital Signs Date Time Temp Pulse Resp B/P (MAP) Pulse Ox O2 Delivery O2 Flow Rate FiO2 03/29/20 20:16 60 122/58 03/29/20 16:30 98.0 18 99 Tracheal Collar I & O 03/28/20 03/28/20 03/29/20 15:00 23:00 07:00 Intake Total 680 ml 220 ml Balance 680 ml 220 ml Labs: Laboratory Tests Test 03/29/20 07:41 Glucose (Fingerstick) 94 mg/dL (70-99) Current Medications: I have reviewed the current psychotropics carefully including drug interactions. Risk benefit ratio favors no change other than as noted in my dictated progress note. Diagnosis: Problems: (1) Impulse control disorder, unspecified (2) Anxiety disorder, unspecified (3) Dementia, vascular, with depression (4) Dementia, vascular, with delusions (5) Dementia in Alzheimer's disease with depression (6) Dementia in Alzheimer's disease with delusions (7) Dementia of the Alzheimer's type with early onset with behavioral disturbance (8) Major neurocognitive disorder (9) Major neurocognitive disorder, due to vascular disease, with behavioral disturbance, mild CLEMENTE BUTLER MD Mar 29, 2020 21:53
[2020-03-30 06:20] VITALS: BP 135/78
--- NOTE | 2020-03-30 06:34 | PDOC ---
Exam Note: Jamie Note: This note is a late entry for 03/28/2020 covers elements not covered in my initial note. Subjective: The patient was reviewed on telehealth rounds due to COVID-19 restrictions on the unit in the evening of 03/28/2020 with Valorie GONZALEZ. He slept 6-3/4 hours previous night. He has been pleasant, does come out in the hallways at times without his mask, redirects and puts it on when asked to do so. Review of Systems: No CV, , pulmonary, eye, ENT system symptoms on review. Reliability poor. Mental Status Exam: Oriented to himself. Insight and judgment, recent and remote memory, attention and concentration, fund of knowledge consistent with his diagnoses mentioned in my initial note. Laboratory Data: Reviewed. Impression: Major neurocognitive disorder Alzheimer vascular with delusion, depression, behavioral disturbance. Anxiety disorder unspecified. Impulse control disorder unspecified. Plan: No change from initial note. Assessment: Vital Signs/I&O: Vital Signs Date Time Temp Pulse Resp B/P (MAP) Pulse Ox O2 Delivery O2 Flow Rate FiO2 03/30/20 06:20 97.4 60 14 135/78 (97) 100 03/29/20 16:30 Tracheal Collar I & O 03/29/20 03/29/20 03/30/20 15:00 23:00 07:00 Intake Total 480 ml 360 ml Balance 480 ml 360 ml Labs: Laboratory Tests Test 03/29/20 07:41 Glucose (Fingerstick) 94 mg/dL (70-99) Current Medications: I have reviewed the current psychotropics carefully including drug interactions. Risk benefit ratio favors no change other than as noted in my dictated progress note. Diagnosis: Problems: (1) Impulse control disorder, unspecified (2) Anxiety disorder, unspecified (3) Dementia, vascular, with depression (4) Dementia, vascular, with delusions (5) Dementia in Alzheimer's disease with depression (6) Dementia in Alzheimer's disease with delusions (7) Dementia of the Alzheimer's type with early onset with behavioral disturbance (8) Major neurocognitive disorder (9) Major neurocognitive disorder, due to vascular disease, with behavioral disturbance, mild CLEMENTE BUTLER MD Mar 30, 2020 06:34
--- NOTE | 2020-03-30 06:44 | PDOC ---
Exam Note: Jamie Note: This note is a late entry for 03/29/2020 covers elements not covered in my initial note. Subjective: The patient was reviewed on telehealth rounds due to COVID-19 restrictions on the unit in the morning of 03/29/2020 with treatment team with Aye Wilks and Keri (social media intern) and Jasmina GONZALEZ. He is somewhat confused. Sleeping average 7 hours. Appetite is 98%. He urinates frequently on the way to the bathroom, unable to hold his urine. Review of Systems: No CV, , pulmonary, eye, ENT system symptoms on review. Mental Status Exam: Oriented to himself. Insight and judgment, recent and remote memory, attention and concentration, fund of knowledge consistent with his diagnoses mentioned in my initial note. Laboratory Data: Reviewed. Impression: Major neurocognitive disorder Alzheimer vascular with delusion, depression, behavioral disturbance. Anxiety disorder unspecified. Impulse control disorder unspecified. Plan: No change from initial note. Transition to [facility] early next week. Keri, social service staff remarked that the [facility] is little reluctant to take him since he was in [facility] prior to coming here consequent to his aggression with his . We have certainly not seen any of that since he has been stabilized. He remains confused nevertheless. Assessment: Vital Signs/I&O: Vital Signs Date Time Temp Pulse Resp B/P (MAP) Pulse Ox O2 Delivery O2 Flow Rate FiO2 03/30/20 06:20 97.4 60 14 135/78 (97) 100 03/29/20 16:30 Tracheal Collar I & O 03/29/20 03/29/20 03/30/20 15:00 23:00 07:00 Intake Total 480 ml 360 ml Balance 480 ml 360 ml Labs: Laboratory Tests Test 03/29/20 07:41 Glucose (Fingerstick) 94 mg/dL (70-99) Current Medications: I have reviewed the current psychotropics carefully including drug interactions. Risk benefit ratio favors no change other than as noted in my dictated progress note. Diagnosis: Problems: (1) Impulse control disorder, unspecified (2) Anxiety disorder, unspecified (3) Dementia, vascular, with depression (4) Dementia, vascular, with delusions (5) Dementia in Alzheimer's disease with depression (6) Dementia in Alzheimer's disease with delusions (7) Dementia of the Alzheimer's type with early onset with behavioral disturbance (8) Major neurocognitive disorder (9) Major neurocognitive disorder, due to vascular disease, with behavioral disturbance, mild CLEMENTE BUTLER MD Mar 30, 2020 06:44
[2020-03-30] MEDS: POLYETHYLENE GLYCOL 3350 17 GM PACKET. PO SCH (07:59)
[2020-03-30] MEDS: ISOSORBIDE MONONITRATE ER 30 MG TAB.ER.24H PO SCH (07:59)
[2020-03-30] MEDS: ASPIRIN ENTERIC COATED 81 MG TABLET.DR. PO SCH (08:00)
[2020-03-30] MEDS: MEMANTINE 10 MG TABLET. PO SCH ×2 (08:00→20:18)
[2020-03-30] MEDS: SERTRALINE 50 MG TABLET. PO SCH (08:00)
[2020-03-30] MEDS: LOSARTAN 50 MG TABLET. PO SCH (08:00)
[2020-03-30] MEDS: METOPROLOL TART IMMED RELEASE 50 MG TABLET PO SCH ×2 (08:00→20:18)
[2020-03-30] MEDS: SPIRONOLACTONE 25 MG TABLET PO SCH (08:01)
[2020-03-30] MEDS: glipiZIDE 5 MG TABLET PO SCH (08:01)
--- NOTE | 2020-03-30 11:49 | NUR ---
DARYA returned call to Geraldine at [facility] and discussed with her how pt is doing. DARYA explained that pt has really done well on the unit, the exact opposite of what his H&P says. Geraldine has asked for the latest notes on pt from the on. DARYA did note that pt had one episode during his shower and come to find he does better with men during that care. Geraldine is going to allow pt dtrs to pick pt up and the time set for that is 1100. Geraldine informed DARYA that she will need orders to specifically say "admit to [facility], continue current medication regime and current diet. House physician to follow". DARYA will get that order and have it all faxed over prior to pt admission on Thursday.
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
--- NOTE | 2020-03-30 13:30 | NUR ---
SW completed Care Assessment for placement purposes at [facility].
--- NOTE | 2020-03-30 15:41 | NUR ---
[facility] Social Work Discharge Planning Form Patient Name ROGELIO SHARPE Admit Date: 24 February 2020 DISCHARGE PLAN Discharge Destination: Pt to discharge to [facility] Assessment: N/A Level II Assessment: N/A Transportation: Pt family to pick pt up around 1500 Special Instructions/Notes: Please fax all discharge orders and medication list to pt facility listed below. DISCHARGE TO FACILITY Facility: [facility] Address: [address] [place] [address] [address], [place] [address] Contact Name: Geraldine Admissions: Contact Name: Please ask for the nurse caring for pt upon arrival. PCP: Dr. Perez (Covering physician)
[2020-03-30 15:43] VITALS: BP 127/84
--- NOTE | 2020-03-30 16:24 | NUR ---
Pt is pleasantly confused. Has been up adl in room for meals and occasionally out in [place] with mask on. Has been compliant with meds and cares.
[2020-03-30] MEDS: QUEtiapine 50 MG TABLET. PO SCH (20:18)
[2020-03-30] MEDS: MELATONIN 3 MG TABLET PO SCH (20:18)
[2020-03-30] MEDS: MIRTAZAPINE 15 MG TABLET PO SCH (20:19)
[2020-03-30] MEDS: ATORVASTATIN CALCIUM 20 MG TABLET PO SCH (20:19)
[2020-03-30] MEDS: traZODone 50 MG TABLET. PO PRN (20:19)
--- NOTE | 2020-03-30 21:53 | PDOC ---
Exam Note: Jamie Note: Please also refer to the separate dictated note~for this date of service dictated separately.~Patient seen individually. Discussed the patient with Nursing staff reviewed the chart.~Reviewed interim history and current functioning. Reviewed vital signs,~Labs/ Radiology~and current medications noted below. Continue current treatment with the changes noted in the dictated addendum note Assessment: Vital Signs/I&O: Vital Signs Date Time Temp Pulse Resp B/P (MAP) Pulse Ox O2 Delivery O2 Flow Rate FiO2 03/30/20 21:09 98.5 99 03/30/20 20:18 72 127/84 03/30/20 15:43 16 03/29/20 16:30 Tracheal Collar I & O 03/29/20 03/29/20 03/30/20 15:00 23:00 07:00 Intake Total 480 ml 360 ml Balance 480 ml 360 ml Labs: Laboratory Tests Test 03/30/20 07:46 Glucose (Fingerstick) 81 mg/dL (70-99) Current Medications: I have reviewed the current psychotropics carefully including drug interactions. Risk benefit ratio favors no change other than as noted in my dictated progress note. Diagnosis: Problems: (1) Impulse control disorder, unspecified (2) Anxiety disorder, unspecified (3) Dementia, vascular, with depression (4) Dementia, vascular, with delusions (5) Dementia in Alzheimer's disease with depression (6) Dementia in Alzheimer's disease with delusions (7) Dementia of the Alzheimer's type with early onset with behavioral disturbance (8) Major neurocognitive disorder (9) Major neurocognitive disorder, due to vascular disease, with behavioral disturbance, mild CLEMENTE BUTLER MD Mar 30, 2020 21:53
--- NOTE | 2020-03-30 22:00 | NUR ---
Patient is his room on assumption of care, awake in bed. He is in pleasant spirits. Disorganized, confused. Compliant with assessments and medications crushed in pudding. No agitation. Denies any pain or discomfort. Patient appears to be sleeping comfortably at present time.
[2020-03-31 06:20] VITALS: BP 146/73
[2020-03-31] MEDS: POLYETHYLENE GLYCOL 3350 17 GM PACKET. PO SCH (08:07)
[2020-03-31] MEDS: SPIRONOLACTONE 25 MG TABLET PO SCH (08:08)
[2020-03-31] MEDS: glipiZIDE 5 MG TABLET PO SCH (08:09)
[2020-03-31] MEDS: METOPROLOL TART IMMED RELEASE 50 MG TABLET PO SCH ×2 (08:09→19:57)
[2020-03-31] MEDS: ASPIRIN ENTERIC COATED 81 MG TABLET.DR. PO SCH (08:09)
[2020-03-31] MEDS: ISOSORBIDE MONONITRATE ER 30 MG TAB.ER.24H PO SCH (08:10)
[2020-03-31] MEDS: MEMANTINE 10 MG TABLET. PO SCH ×2 (08:10→19:56)
[2020-03-31] MEDS: LOSARTAN 50 MG TABLET. PO SCH (08:10)
[2020-03-31] MEDS: SERTRALINE 50 MG TABLET. PO SCH (08:10)
[2020-03-31 08:24] LABS: BASO % 1 % (0-3); EOS # 0.1 x10^3/uL (0.0-0.7); EOS % 2 % (0-3); HEMATOCRIT 42.6 % (39.0-53.0); HEMOGLOBIN 14.3 g/dL (13.0-17.5); LYMPH # 1.5 x10^3/uL (1.0-4.8); LYMPH % 30 % (24-48); MEAN CORPUSCULAR HEMOGLOBIN 33 pg (25-35); MEAN CORPUSCULAR HGB CONC 34 g/dL (31-37); MEAN CORPUSCULAR VOLUME 97 fL (79-100); MONO # 0.4 x10^3/uL (0.0-1.1); MONO % 8 % (0-9); NEUT # 2.8 x10^3uL (1.8-7.7); NEUT % 59 % (31-73); PLATELET COUNT 113 x10^3/uL (140-400); RED BLOOD COUNT 4.38 x10^6/uL (4.30-5.70); RED CELL DISTRIBUTION WIDTH 14.4 % (11.5-14.5); WHITE BLOOD COUNT 4.8 x10^3/uL (4.0-11.0)
[2020-03-31 08:38] LABS: ALBUMIN 3.7 g/dL (3.4-5.0); ALBUMIN/GLOBULIN RATIO 1.1 (1.0-1.7); CALCIUM 9.6 mg/dL (8.5-10.1); CREATININE 1.7 mg/dL (0.7-1.3); GFR 38.6; POTASSIUM 4.7 mmol/L (3.5-5.1); TOTAL BILIRUBIN 0.9 mg/dL (0.2-1.0); TOTAL PROTEIN 7.2 g/dL (6.4-8.2)
[2020-03-31 15:30] VITALS: BP 101/57
--- NOTE | 2020-03-31 16:59 | NUR ---
Pt up adl in room. Up for meals in room. Pt incontinent in afternoon and disrobed. Pt cleaned up and redressed. Compliant with cares and meds taken in pudding.
[2020-03-31] MEDS: QUEtiapine 50 MG TABLET. PO SCH (19:56)
[2020-03-31] MEDS: MIRTAZAPINE 15 MG TABLET PO SCH (19:56)
[2020-03-31] MEDS: traZODone 50 MG TABLET. PO PRN (19:56)
[2020-03-31] MEDS: MELATONIN 3 MG TABLET PO SCH (19:56)
[2020-03-31] MEDS: ATORVASTATIN CALCIUM 20 MG TABLET PO SCH (19:56)
--- NOTE | 2020-03-31 21:40 | NUR ---
Pt located in his room this evening, sitting calmly on his bed. Compliant with crushed medications in one bite of pudding. Pleasantly confused. PRN Trazodone administered with HS medications.
--- NOTE | 2020-03-31 21:50 | PDOC ---
Exam Note: Jamie Note: Please also refer to the separate dictated note~for this date of service dictated separately.~Patient seen individually. Discussed the patient with Nursing staff reviewed the chart.~Reviewed interim history and current functioning. Reviewed vital signs,~Labs/ Radiology~and current medications noted below. Continue current treatment with the changes noted in the dictated addendum note Assessment: Vital Signs/I&O: Vital Signs Date Time Temp Pulse Resp B/P (MAP) Pulse Ox O2 Delivery O2 Flow Rate FiO2 03/31/20 20:00 98.6 98 Room Air 03/31/20 19:57 63 101/57 03/31/20 15:30 18 I & O 03/30/20 03/30/20 03/31/20 15:00 23:00 07:00 Intake Total 480 ml 480 ml Balance 480 ml 480 ml Labs: Laboratory Tests Test 03/31/20 07:35 03/31/20 08:05 Glucose (Fingerstick) 107 mg/dL (70-99) H White Blood Count 4.8 x10^3/uL (4.0-11.0) Red Blood Count 4.38 x10^6/uL (4.30-5.70) Hemoglobin 14.3 g/dL (13.0-17.5) Hematocrit 42.6 % (39.0-53.0) Mean Corpuscular Volume 97 fL (79-100) Mean Corpuscular Hemoglobin 33 pg (25-35) Mean Corpuscular Hemoglobin Concent 34 g/dL (31-37) Red Cell Distribution Width 14.4 % (11.5-14.5) Platelet Count 113 x10^3/uL (140-400) L Neutrophils (%) (Auto) 59 % (31-73) Lymphocytes (%) (Auto) 30 % (24-48) Monocytes (%) (Auto) 8 % (0-9) Eosinophils (%) (Auto) 2 % (0-3) Basophils (%) (Auto) 1 % (0-3) Neutrophils # (Auto) 2.8 x10^3uL (1.8-7.7) Lymphocytes # (Auto) 1.5 x10^3/uL (1.0-4.8) Monocytes # (Auto) 0.4 x10^3/uL (0.0-1.1) Eosinophils # (Auto) 0.1 x10^3/uL (0.0-0.7) Basophils # (Auto) 0.0 x10^3/uL (0.0-0.2) Sodium Level 143 mmol/L (136-145) Potassium Level 4.7 mmol/L (3.5-5.1) Chloride Level 108 mmol/L (98-107) H Carbon Dioxide Level 28 mmol/L (21-32) Anion Gap 7 (6-14) Blood Urea Nitrogen 39 mg/dL (8-26) H Creatinine 1.7 mg/dL (0.7-1.3) H Estimated GFR (Cockcroft-Gault) 38.6 BUN/Creatinine Ratio 23 (6-20) H Glucose Level 105 mg/dL (70-99) H Calcium Level 9.6 mg/dL (8.5-10.1) Total Bilirubin 0.9 mg/dL (0.2-1.0) Aspartate Amino Transferase (AST) 42 U/L (15-37) H Alanine Aminotransferase (ALT) 61 U/L (16-63) Alkaline Phosphatase 130 U/L (46-116) H Total Protein 7.2 g/dL (6.4-8.2) Albumin 3.7 g/dL (3.4-5.0) Albumin/Globulin Ratio 1.1 (1.0-1.7) Current Medications: I have reviewed the current psychotropics carefully including drug interactions. Risk benefit ratio favors no change other than as noted in my dictated progress note. Diagnosis: Problems: (1) Impulse control disorder, unspecified (2) Anxiety disorder, unspecified (3) Dementia, vascular, with depression (4) Dementia, vascular, with delusions (5) Dementia in Alzheimer's disease with depression (6) Dementia in Alzheimer's disease with delusions (7) Dementia of the Alzheimer's type with early onset with behavioral distur bance (8) Major neurocognitive disorder (9) Major neurocognitive disorder, due to vascular disease, with behavioral disturbance, mild CLEMENTE BUTLER MD Mar 31, 2020 21:50
[2020-04-01 05:30] VITALS: BP 157/79
[2020-04-01] MEDS: ASPIRIN ENTERIC COATED 81 MG TABLET.DR. PO SCH (07:39)
[2020-04-01] MEDS: POLYETHYLENE GLYCOL 3350 17 GM PACKET. PO SCH (07:39)
[2020-04-01] MEDS: glipiZIDE 5 MG TABLET PO SCH (07:39)
[2020-04-01] MEDS: SPIRONOLACTONE 25 MG TABLET PO SCH (07:40)
[2020-04-01] MEDS: LOSARTAN 50 MG TABLET. PO SCH (07:40)
[2020-04-01] MEDS: METOPROLOL TART IMMED RELEASE 50 MG TABLET PO SCH ×2 (07:41→20:01)
[2020-04-01] MEDS: SERTRALINE 50 MG TABLET. PO SCH (07:41)
[2020-04-01] MEDS: MEMANTINE 10 MG TABLET. PO SCH ×2 (07:41→20:01)
[2020-04-01] MEDS: ISOSORBIDE MONONITRATE ER 30 MG TAB.ER.24H PO SCH (07:41)
--- NOTE | 2020-04-01 09:35 | NUR ---
Pt up for breakfast in room. Pleasantly confused. Compliant with meds and cares.
[2020-04-01 15:23] VITALS: BP 129/69
[2020-04-01] MEDS: traZODone 50 MG TABLET. PO PRN (20:01)
[2020-04-01] MEDS: QUEtiapine 50 MG TABLET. PO SCH (20:01)
[2020-04-01] MEDS: MELATONIN 3 MG TABLET PO SCH (20:01)
[2020-04-01] MEDS: MIRTAZAPINE 15 MG TABLET PO SCH (20:01)
[2020-04-01] MEDS: ATORVASTATIN CALCIUM 20 MG TABLET PO SCH (20:02)
--- NOTE | 2020-04-01 21:52 | NUR ---
Pt calm and cooperative. Compliant with crushed medications. Pleasantly confused.
--- NOTE | 2020-04-01 21:53 | PDOC ---
Exam Note: Jamie Note: Please also refer to the separate dictated note~for this date of service dictated separately.~Patient seen individually. Discussed the patient with Nursing staff reviewed the chart.~Reviewed interim history and current functioning. Reviewed vital signs,~Labs/ Radiology~and current medications noted below. Continue current treatment with the changes noted in the dictated addendum note Assessment: Vital Signs/I&O: Vital Signs Date Time Temp Pulse Resp B/P (MAP) Pulse Ox O2 Delivery O2 Flow Rate FiO2 04/01/20 21:04 98.4 97 04/01/20 20:01 65 129/69 04/01/20 15:23 20 Room Air I & O 03/31/20 03/31/20 04/01/20 15:00 23:00 07:00 Intake Total 780 ml 360 ml Balance 780 ml 360 ml Labs: Laboratory Tests Test 04/01/20 08:03 Glucose (Fingerstick) 134 mg/dL (70-99) H Current Medications: I have reviewed the current psychotropics carefully including drug interactions. Risk benefit ratio favors no change other than as noted in my dictated progress note. Diagnosis: Problems: (1) Impulse control disorder, unspecified (2) Anxiety disorder, unspecified (3) Dementia, vascular, with depression (4) Dementia, vascular, with delusions (5) Dementia in Alzheimer's disease with depression (6) Dementia in Alzheimer's disease with delusions (7) Dementia of the Alzheimer's type with early onset with behavioral disturbance (8) Major neurocognitive disorder (9) Major neurocognitive disorder, due to vascular disease, with behavioral disturbance, mild CLEMENTE BUTLER MD Apr 01, 2020 21:53
[2020-04-02] MEDS ORDERED: MELA3TAB4 PO (00:43)
[2020-04-02 05:23] VITALS: BP 134/74
--- NOTE | 2020-04-02 06:54 | PDOC ---
Exam Note: Jamie Note: This note is a late entry for 03/30/2020 covers elements not covered in my initial note. Subjective: The patient was reviewed on telehealth rounds due to COVID-19 restrictions on the unit in the evening of 03/30/2020 with Alicia GONZALEZ. Discussed with nursing staff, reviewed the chart. The patient has done reaso nably well. He slept 5-1/4 hours previous night. Did receive trazodone. He walks into the hallway without his mask but redirects and puts it on when requested by staff. Review of Systems: No CV, , pulmonary, eye, ENT system symptoms on review. Reliability poor. Mental Status Exam: Oriented to himself. Insight and judgment, recent and remote memory, attention and concentration, fund of knowledge consistent with his diagnoses mentioned in my initial note. Laboratory Data: Reviewed. Impression: Major neurocognitive disorder Alzheimer vascular with delusion, depression, behavioral disturbance. Anxiety disorder unspecified. Impulse control disorder unspecified. Plan: No change from initial note. Assessment: Vital Signs/I&O: Vital Signs Date Time Temp Pulse Resp B/P (MAP) Pulse Ox O2 Delivery O2 Flow Rate FiO2 04/02/20 05:23 97.1 61 16 134/74 (94) 97 04/01/20 15:23 Room Air I & O 04/01/20 04/01/20 04/02/20 15:00 23:00 07:00 Intake Total 600 ml 360 ml Balance 600 ml 360 ml Labs: Laboratory Tests Test 04/01/20 08:03 Glucose (Fingerstick) 134 mg/dL (70-99) H Current Medications: I have reviewed the current psychotropics carefully including drug interactions. Risk benefit ratio favors no change other than as noted in my dictated progress note. Diagnosis: Problems: (1) Impulse control disorder, unspecified (2) Anxiety disorder, unspecified (3) Dementia, vascular, with depression (4) Dementia, vascular, with delusions (5) Dementia in Alzheimer's disease with depression (6) Dementia in Alzheimer's disease with delusions (7) Dementia of the Alzheimer's type with early onset with behavioral disturbance (8) Major neurocognitive disorder (9) Major neurocognitive disorder, due to vascular disease, with behavioral disturbance, mild CLEMENTE BUTLER MD Apr 02, 2020 06:54
--- NOTE | 2020-04-02 07:02 | PDOC ---
Exam Note: Jamie Note: This note is a late entry for 03/31/2020 covers elements not covered in my initial note. Subjective: The patient was reviewed on telehealth rounds due to COVID-19 restrictions on the unit in the evening of 03/31/2020 with Alicia GONZALEZ. Discussed with nursing staff, reviewed the chart. He slept reasonably previous night. He has been incontinent of bowels but nursing staff encouraged him to assist the staff and he does in cleaning himself. Review of Systems: No CV, , pulmonary, eye, ENT system symptoms on review. Mental Status Exam: Oriented to himself. Insight and judgment, recent and remote memory, attention and concentration, fund of knowledge consistent with his diagnoses mentioned in my initial note. Laboratory Data: Reviewed. Impression: Major neurocognitive disorder Alzheimer vascular with delusion, depression, behavioral disturbance. Anxiety disorder unspecified. Impulse control disorder unspecified. Plan: No change from initial note. Assessment: Vital Signs/I&O: Vital Signs Date Time Temp Pulse Resp B/P (MAP) Pulse Ox O2 Delivery O2 Flow Rate FiO2 04/02/20 05:23 97.1 61 16 134/74 (94) 97 04/01/20 15:23 Room Air I & O 04/01/20 04/01/20 04/02/20 15:00 23:00 07:00 Intake Total 600 ml 360 ml Balance 600 ml 360 ml Labs: Laboratory Tests Test 04/01/20 08:03 Glucose (Fingerstick) 134 mg/dL (70-99) H Current Medications: I have reviewed the current psychotropics carefully including drug interactions. Risk benefit ratio favors no change other than as noted in my dictated progress note. Diagnosis: Problems: (1) Impulse control disorder, unspecified (2) Anxiety disorder, unspecified (3) Dementia, vascular, with depression (4) Dementia, vascular, with delusions (5) Dementia in Alzheimer's disease with depression (6) Dementia in Alzheimer's disease with delusions (7) Dementia of the Alzheimer's type with early onset with behavioral disturbance (8) Major neurocognitive disorder (9) Major neurocognitive disorder, due to vascular disease, with behavioral disturbance, mild CLEMENTE BUTLER MD Apr 02, 2020 07:02
--- NOTE | 2020-04-02 07:08 | PDOC ---
Exam Note: Jamie Note: This note is a late entry for 04/01/2020 covers elements not covered in my initial note. Subjective: The patient was reviewed on telehealth rounds due to COVID-19 restrictions on the unit in the evening of 04/01/2020 with Milton GONZALEZ. Discussed with nursing staff, reviewed the chart. He remains confused, withdrawn to his room. He slept 7-3/4 hours previous night. He has difficulty going to the bathroom but otherwise very pleasant, whistling into his breath, has a sense of humor, confused. Review of Systems: No CV, , pulmonary, eye, ENT system symptoms on review. Mental Status Exam: Oriented to himself. Insight and judgment, recent and remote memory, attention and concentration, fund of knowledge consistent with his diagnoses mentioned in my initial note. Laboratory Data: Reviewed. Impression: Major neurocognitive disorder Alzheimer vascular with delusion, depression, behavioral disturbance. Anxiety disorder unspecified. Impulse control disorder unspecified. Plan: No change from initial note. Assessment: Vital Signs/I&O: Vital Signs Date Time Temp Pulse Resp B/P (MAP) Pulse Ox O2 Delivery O2 Flow Rate FiO2 04/02/20 05:23 97.1 61 16 134/74 (94) 97 04/01/20 15:23 Room Air I & O 04/01/20 04/01/20 04/02/20 15:00 23:00 07:00 Intake Total 600 ml 360 ml Balance 600 ml 360 ml Labs: Laboratory Tests Test 04/01/20 08:03 Glucose (Fingerstick) 134 mg/dL (70-99) H Current Medications: I have reviewed the current psychotropics carefully including drug interactions. Risk benefit ratio favors no change other than as noted in my dictated progress note. Diagnosis: Problems: (1) Impulse control disorder, unspecified (2) Anxiety disorder, unspecified (3) Dementia, vascular, with depression (4) Dementia, vascular, with delusions (5) Dementia in Alzheimer's disease with depression (6) Dementia in Alzheimer's disease with delusions (7) Dementia of the Alzheimer's type with early onset with behavioral disturbance (8) Major neurocognitive disorder (9) Major neurocognitive disorder, due to vascular disease, with behavioral disturbance, mild CLEMENTE BUTLER MD Apr 02, 2020 07:08
[2020-04-02] MEDS: ISOSORBIDE MONONITRATE ER 30 MG TAB.ER.24H PO SCH (09:27)
[2020-04-02] MEDS: ASPIRIN ENTERIC COATED 81 MG TABLET.DR. PO SCH (09:27)
[2020-04-02] MEDS: glipiZIDE 5 MG TABLET PO SCH (09:27)
[2020-04-02] MEDS: SERTRALINE 50 MG TABLET. PO SCH (09:27)
[2020-04-02] MEDS: MEMANTINE 10 MG TABLET. PO SCH (09:27)
[2020-04-02 09:28] VITALS: BP 134/74
[2020-04-02] MEDS: LOSARTAN 50 MG TABLET. PO SCH (09:28)
[2020-04-02] MEDS: POLYETHYLENE GLYCOL 3350 17 GM PACKET. PO SCH (09:28)
[2020-04-02] MEDS: SPIRONOLACTONE 25 MG TABLET PO SCH (09:28)
[2020-04-02] MEDS: METOPROLOL TART IMMED RELEASE 50 MG TABLET PO SCH (09:28)
--- NOTE | 2020-04-02 11:28 | NUR ---
Transition Record was faxed to follow-up provider with the following elements: Reason for admission, procedures, tests, principal diagnosis, pending studies, patient instructions, 02/02 contact information for unit, phone number to obtain pending test results, plan for follow-up care, physician follow-up, advanced directive information, and medication list with dose, duration and instructions. This information was included in the following documents: History and physical, lab results, study results, progress notes, social work planning form, DC instruction form, patient visit summary, and medication reconciliation form. Date & time record faxed: 00:38 02 April 2020 Record faxed to: Brad Horvath Record discussed with/ report given to: LISA Mclean at [facility]
--- NOTE | 2020-04-02 21:52 | PDOC ---
Exam Note: Jamie Note: Please also refer to the separate dictated note~for this date of service dictated separately.~Patient seen individually. Discussed the patient with Nursing staff reviewed the chart.~Reviewed interim history and current functioning. Reviewed vital signs,~Labs/ Radiology~and current medications noted below. Continue current treatment with the changes noted in the dictated addendum note Assessment: Vital Signs/I&O: Vital Signs Date Time Temp Pulse Resp B/P (MAP) Pulse Ox O2 Delivery O2 Flow Rate FiO2 04/02/20 09:28 61 134/74 04/02/20 05:23 97.1 16 97 04/01/20 15:23 Room Air I & O 04/01/20 04/01/20 04/02/20 15:00 23:00 07:00 Intake Total 600 ml 360 ml Balance 600 ml 360 ml Labs: Laboratory Tests Test 04/02/20 07:28 Glucose (Fingerstick) 91 mg/dL (70-99) Current Medications: I have reviewed the current psychotropics carefully including drug interactions. Risk benefit ratio favors no change other than as noted in my dictated progress note. 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
--- NOTE | 2020-04-04 18:18 | DS ---
DATE OF DISCHARGE: 04/02/2020 DISCHARGE SUMMARY/PSYCHIATRIC PROGRESS NOTE This late entry of 04/02/2020 covers elements not covered in my initial note. REASON FOR ADMISSION: Please refer to the admission history for details. Briefly, the patient is an 84-year-old male, referred to us from home after he spent overnight in alf after he became agitated, aggressive at home with his with the context of his significant dementia and a diagnosis of major neurocognitive disorder, Alzheimer, vascular with delusion, depression, and behavioral disturbance. The patient's behaviors were deemed dangerous, had failed outpatient psychiatric interventions resulting in this referral. SIGNIFICANT FINDINGS AND CLINICAL COURSE: Following admission, the patient was seen daily individually by myself from a psychiatric standpoint, medical followup per Dr. Hernández/Dr Dalton. The patient was initially somewhat agitated, disruptive. Adjustments were made in his psychotropics and he seemed to respond to a combination of Namenda 10 mg b.i.d., trazodone 50 mg at bedtime p.r.n. insomnia, may repeat x 1, Zyprexa 2.5 mg q. 2 hours p.r.n. psychosis and agitation, max 10 mg in 24 hours, Remeron 15 mg at bedtime, Zoloft 50 mg a day, Seroquel 50 mg at bedtime, melatonin 3 mg at bedtime. REVIEW OF SYSTEMS: Prior to discharge on 04/02/2020, no CV, , pulmonary, eye, ENT system symptoms on review. Reliability poor. MENTAL STATUS EXAM: Oriented to himself. Insight, judgment, recent and remote memory, attention, concentration, fund of knowledge poor, consistent with his diagnosis. CONDITION AT DISCHARGE: Improved. FINAL DIAGNOSES: Major neurocognitive disorder, Alzheimer's, vascular with delusion, depression, behavioral disturbance; anxiety disorder, unspecified; impulse control disorder, unspecified. Rest unchanged from admission. DISCHARGE MEDICATIONS: Please refer to the [facility]. DISCHARGE INSTRUCTIONS: Outpatient psychiatric and medical followup at the snf. MAN Steph BUTLER MD DR: TAMIE/natacha JOB#: [id number] / [id number]
== END 2020-04-02 11:30 | DRG 57 ==
LOC: GEROPSY 15:45
PROVIDERS: ADMIT Psychiatry & Neurology Psychiatry; ATTEND Psychiatry & Neurology Psychiatry
DX: G30.9 Alzheimer's disease, unspecified (principal); F01.51 Vascular dementia, unspecified severity, with behavioral disturbance; F02.81 Dementia in other diseases classified elsewhere, unspecified severity, with behavioral disturbance; F05 Delirium due to known physiological condition; E11.22 Type 2 diabetes mellitus with diabetic chronic kidney disease; E78.5 Hyperlipidemia, unspecified; F32.9 Major depressive disorder, single episode, unspecified; F41.1 Generalized anxiety disorder; F63.9 Impulse disorder, unspecified; G47.00 Insomnia, unspecified; H54.7 Unspecified visual loss; I12.9 Hypertensive chronic kidney disease with stage 1 through stage 4 chronic kidney disease, or unspecified chronic kidney disease; I25.10 Atherosclerotic heart disease of native coronary artery without angina pectoris; I25.5 Ischemic cardiomyopathy; I25.2 Old myocardial infarction; N18.2 Chronic kidney disease, stage 2 (mild); N40.0 Benign prostatic hyperplasia without lower urinary tract symptoms; Z79.899 Other long term (current) drug therapy; Z82.0 Family history of epilepsy and other diseases of the nervous system; Z82.49 Family history of ischemic heart disease and other diseases of the circulatory system; Z83.3 Family history of diabetes mellitus; Z85.828 Personal history of other malignant neoplasm of skin; Z86.718 Personal history of other venous thrombosis and embolism; Z87.19 Personal history of other diseases of the digestive system; Z87.891 Personal history of nicotine dependence; Z91.81 History of falling; Z95.0 Presence of cardiac pacemaker; Z95.1 Presence of aortocoronary bypass graft; Z98.41 Cataract extraction status, right eye; Z98.42 Cataract extraction status, left eye; G89.29 Other chronic pain; K57.90 Diverticulosis of intestine, part unspecified, without perforation or abscess without bleeding; M19.90 Unspecified osteoarthritis, unspecified site; Z20.828 Contact with and (suspected) exposure to other viral communicable diseases; Z91.83 Wandering in diseases classified elsewhere
CPT/HCPCS: 36415; 70450; 80053; 80061; 81001; 82306; 82607; 82947; 83036; 83540; 83550; 83735; 84436; 84443; 84480; 85025; 86592; 87086; 87426; 93005; U0003-CS